=== PATIENT | female | born 1990 | race Caucasian/White ===

== ENCOUNTER 2016-11-17 16:45 | Emergency (ER) | payer MEDICAID ==
[~2016-11-17 16:45] MED LIST: FLUT50SP EACH NARE; PRIL20CA9 PO
--- NOTE | 2016-11-17 17:29 | PD ---
HPI Travel History International Travel<30 Days: No Contact w/Intl Traveler<30Days: No Known Affected Area: No History of Present Illness HPI This patient is a 26-year-old 2 para 1001 EDC is March 15, 2017 presently at 23 weeks, she presents with the chief complaint of having bleeding last night she spotted when she went to the restroom and wiped and saw that on the tissue having mild lower abdominal cramping states that the bleeding was bright red no fever no chills no nausea no vomiting no diarrhea or constipation she has increased frequency of her urine but no dysuria no discharge odors or itching care with Dr. Murray course as been unremarkable her blood type is A+ History Past Medical History Narrative Medical No known drug allergies history of acid reflux Obstetric History Obstetric History First baby born December 10, 2013 male weight 7 lbs. 1 oz. vaginal delivery uncomplicated Past Surgical History Surgical History: No Previous Surgery Family History Family History: Negative Social History Alcohol Use: No Tobacco Use: No Substance Abuse: No Allergies-Medications (Allergen,Severity, Reaction): Coded Allergies: No Known Allergies (Verified , 08/13/16) Home Meds Reported Medications Omeprazole (Prilosec)20 Mg Cap20 Mg PO DAILY #31 CAP Ref 6 08/31/16 Fluticasone Nasal [place] 50 Mcg/Act Naspr50 Mcg EACH NARE BID #1 BOTTLE Ref 3 50 mcg/spray 08/31/16 Review of Systems Gastrointestinal: Abdominal Pain (crampy lower abdominal pain) Genitourinary: Frequency, Vaginal Bleeding Physical Exam Narrative GENERAL: Well-nourished, well-developed patient. Alert oriented 3 and cooperative in no acute distress CARDIOVASCULAR: Regular rate and rhythm without murmurs, gallops, or rubs. RESPIRATORY: Breath sounds equal bilaterally. No accessory muscle use. ABDOMEN/GI: Abdomen is obese soft nontender uterus consistent with about 23 weeks Gravid to [-] weeks size 23 Fundal Height: [-] GENITOURINARY: Speculum exam no red no brown no pink thin whitish discharge cervix is grossly closed External Genitalia: intact and normal in appearance BUS glands: [-] Cervix: [-] Thick closed posterior Dilatation: [-] 0 Effacement: [-] 0 Station: [-] Presentation: [-] Membranes: [intact Uterine Contractions: [-]0 FHT's: Category: [-] Baseline: [-] 150 Reactive: [-] Variability: [-] Decels: [-] EXTREMITIES: No cyanosis or edema. 2+ reflexes NEUROLOGICAL: Awake and alert. Motor and sensory grossly within normal limits. Five out of 5 muscle strength in all muscle groups. Normal speech. Data Data Vital Signs Reviewed: Yes (temperatures 99.1 blood pressure 133/77 pulse is 100 heart rate 150) Orders Vital Signs (Adult) .ON ADMISSION (11/17/16 17:18) ^ Labor Status (11/17/16 17:18) Urinalysis - C+S If Indicated (11/17/16 17:18) ^ Hydration (11/17/16 17:18) Labs Bedside ultrasound is done baby is active heart rate is 152 placenta is anterior and grade 1 no funneling at the internal os no abruption no previa cervical length is 4.04 MDM Medical Record Reviewed: No Interpretation(s) 26-year-old at 23 weeks Not in labor Vaginal spotting with no clinical evidence of spotting or bleeding Rule out hematuria Rule out UTI Narrative Course / MDM Urinalysis culture is not indicated We'll discharge patient home by mouth fluid hydration Pelvic rest and limited physical activity kick count Follow-up with Dr. Murray in 24-48 hours Plan Bedside ultrasound By mouth fluid hydration Urinalysis Reevaluation Will discharge the patient home Rest pelvic rest by mouth fluid hydration kick Follow-up with Dr. Son in 24-48 hours Diagnosis Diagnosis: Primary Impression: Vaginal spotting Additional Impression: 23 weeks gestation of Disposition: DISCHARGE HOME Condition: Stable Veronika Roach MD Nov 17, 2016 17:29
[2016-11-17 18:23] LABS: BACTERIA, URINE RARE /hpf; BLOOD, URINE NEG (NEG); COMMENT (UR) CULT NOT INDICATED; CULTURE IF INDICATED CULT NOT INDICATED; GLUCOSE,URINE NEG (NEG); KETONE, URINE NEG (NEG); MUCUS URINE FEW /lpf (OCC); NITRITE,URINE NEG (NEG); PH, URINE 6.5 (5.0-8.5); SQUAMOUS EPITHELIAL CELL URINE 26 /hpf (0-5); URINE COLOR YELLOW (YELLW/STRAW)
== END 2016-11-17 18:00 | disposition home or self-care (01) ==
LOC: HOBED 16:45
DX: O26.852 Spotting complicating pregnancy, second trimester (principal); Z3A.23 23 weeks gestation of pregnancy
CPT/HCPCS: 81001; 99284

== ENCOUNTER 2016-12-06 19:48 | Emergency (ER) | payer MEDICAID ==
--- NOTE | 2016-12-06 20:21 | PD ---
HPI Chief Complaint right leg pain Date Seen: Dec 06, 2016 Time Seen: 20:00 Travel History International Travel<30 Days: No Contact w/Intl Traveler<30Days: No Known Affected Area: No History of Present Illness HPI 26yo at 24 weeks gestation here for simpson pain. Pt was shopping at [employer] last Tuesday and fell onto her side. Hit right anterior simpson on shelf and has small bruise. Good movement, no vaginal bleeding. No abdominal trauma. Para: 1 : 2 History Past Medical History Medical History: Denies Significant Hx Past Surgical History Surgical History: No Previous Surgery Family History Family History: Negative Social History Alcohol Use: No Tobacco Use: No Substance Abuse: No Allergies-Medications (Allergen,Severity, Reaction): Coded Allergies: No Known Allergies (Verified , 08/13/16) Home Meds Reported Medications Omeprazole (Prilosec)20 Mg Cap20 Mg PO DAILY #31 CAP Ref 6 08/31/16 Fluticasone Nasal [place] 50 Mcg/Act Naspr50 Mcg EACH NARE BID #1 BOTTLE Ref 3 50 mcg/spray 08/31/16 Review of Systems Except as stated in HPI: all other systems reviewed are Neg Physical Exam Narrative GENERAL: Well-nourished, well-developed patient. SKIN: Warm and dry. HEAD: Normocephalic and atraumatic. EYES: No scleral icterus. No injection or drainage. ENT: No nasal drainage noted. Mucous membranes pink. Airway patent. NECK: Supple, trachea midline. No JVD. CARDIOVASCULAR: Regular rate and rhythm without murmurs, gallops, or rubs. RESPIRATORY: Breath sounds equal bilaterally. No accessory muscle use. BREASTS: Bilateral exam showed no masses , no retractions, no nipple discharge. ABDOMEN/GI: Abdomen soft, non-tender, bowel sounds present, no rebound, no guarding Gravid to [-] weeks size Fundal Height: [-] 24cm GENITOURINARY: deferred External Genitalia: intact and normal in appearance BUS glands: [-] Cervix: [-] Dilatation: [-] Effacement: [-] Station: [-] Presentation: [-] Membranes: [intact or ruptured] Uterine Contractions: [-] FHT's: Category: [-] 1 Baseline: [-] 145 Reactive: [-] reactive Variability: [-] moderate Decels: [-] absent EXTREMITIES: No cyanosis or edema. right simpson with barely apparent slight discoloration 2cm on anterior simpson BACK: Nontender without obvious deformity. No CVA tenderness. NEUROLOGICAL: Awake and alert. Motor and sensory grossly within normal limits. Five out of 5 muscle strength in all muscle groups. Normal speech. Data Data Vital Signs Reviewed: Yes [facility] Medical Record Reviewed: Yes Plan Follow up with ob provider as scheduled Diagnosis Diagnosis: Primary Impression: 24 weeks gestation of Additional Impression: Superficial bruising of lower leg Disposition: 01 DISCHARGE HOME Shanna Young MD Dec 06, 2016 20:21
== END 2016-12-06 20:31 | disposition home or self-care (01) ==
LOC: HOBED 19:48
DX: O26.892 Other specified pregnancy related conditions, second trimester (principal); M79.661 Pain in right lower leg; S80.11XA Contusion of right lower leg, initial encounter; W01.198A Fall on same level from slipping, tripping and stumbling with subsequent striking against other object, initial encounter; Y92.512 Supermarket, store or market as the place of occurrence of the external cause; Z3A.24 24 weeks gestation of pregnancy
CPT/HCPCS: 99283

== ENCOUNTER 2017-02-04 17:15 | Emergency (ER) | payer MEDICAID ==
--- NOTE | 2017-02-04 18:15 | PD ---
HPI Chief Complaint Leakage of fluid Date Seen: Feb 04, 2017 Travel History International Travel<30 Days: No Contact w/Intl Traveler<30Days: No Known Affected Area: No History of Present Illness HPI Patient is a 26-year-old white female at 34 weeks who presents complaining of some leakage of fluid per vagina. She is unsure if it was urine or fluid from baby. She denies bleeding. Baby is active. heart rate tracing is reactive and she is not rosita. Patient sees Dr. Murray of [facility] for care. Para: 1 : 2 History Obstetric History Obstetric History One vaginal delivery Social History Alcohol Use: No Tobacco Use: No Substance Abuse: No Allergies-Medications (Allergen,Severity, Reaction): Coded Allergies: No Known Allergies (Verified , 08/13/16) Home Meds Reported Medications Omeprazole (Prilosec)20 Mg Cap20 Mg PO DAILY #31 CAP Ref 6 08/31/16 Fluticasone Nasal [place] 50 Mcg/Act Naspr50 Mcg EACH NARE BID #1 BOTTLE Ref 3 50 mcg/spray 08/31/16 Review of Systems General / Constitutional: No: Fever, Weight Gain, Chills, Other Eyes: No: Diploplia, Blurred Vision, Visual changes, Pain, Photophobia HENT: No: Headaches, Vertigo, Lightheadedness Cardiovascular: No: Irregular Rhythm, Chest Pain or Discomfort, Palpitations, Tachycardia, Syncope, Varicosities, Edema, Cyanosis Respiratory: No: Cough, Short of Breath, Other Gastrointestinal: No: Nausea, Vomiting, Diarrhea Genitourinary: Dysuria, No: Decreased Urinary Output, Oliguria Musculoskeletal: No: Limited ROM, Weakness, Cramping, Edema, Pain Skin: No Rash, No Itching, No Dryness, No Lumps, No Change in Pigmentation, No Change in Nails, No Alopecia, No Lesions Neurologic: No: Weakness, Dizziness, Syncope, Focal Abnormalities, Coordination Problem, Headache, Slurred Speech, Seizures Psychiatric: No: Depression, Suicidal Ideations, Homicidal Ideation Endocrine: No: Heat Intolerance, Cold Intolerance, Polydipsia, Polyuria, Other Physical Exam Narrative GENERAL: Well-nourished, well-developed patient. SKIN: Warm and dry. HEAD: Normocephalic and atraumatic. EYES: No scleral icterus. No injection or drainage. ENT: No nasal drainage noted. Mucous membranes pink. Airway patent. NECK: Supple, trachea midline. No JVD. CARDIOVASCULAR: Regular rate and rhythm without murmurs, gallops, or rubs. RESPIRATORY: Breath sounds equal bilaterally. No accessory muscle use. BREASTS: Bilateral exam showed no masses , no retractions, no nipple discharge. ABDOMEN/GI: Abdomen soft, non-tender, bowel sounds present, no rebound, no guarding Gravid to [-34] weeks size Fundal Height: [34-] GENITOURINARY: External Genitalia: intact and normal in appearance BUS glands: [-] Cervix: [-] Closed Membranes: [intact ] amnio sure negative Uterine Contractions: [-none] FHT's: Category: [1-] Baseline: [133-] Reactive: [-yes] Variability: [mod-] Decels: [none-] EXTREMITIES: No cyanosis or edema. BACK: Nontender without obvious deformity. No CVA tenderness. NEUROLOGICAL: Awake and alert. Motor and sensory grossly within normal limits. Five out of 5 muscle strength in all muscle groups. Normal speech. Data Data Labs Amnio sure is negative Urinalysis pending at this point we will check the results of that and if positive for UTI will treat with Macrobid 100 twice a day for a week if negative and patient hydrated at home MDM Interpretation(s) This patient is a 26-year-old white female at 34 weeks presents planning of leakage of fluid. Amnio sure is negative. There's been no further leakage. Denies bleeding or contractions. heart rate tracing is reactive. The patient's urinalysis is pending at this time but if positive for UTI will treat accordingly Plan Plan to patient to take antibiotics if UTI noted otherwise she is to use Tylenol home at home for discomforts hydrated appropriately and the use bedrest as needed. Diagnosis Diagnosis: Primary Impression: No leakage of amniotic fluid into vagina Disposition: DISCHARGE HOME Condition: Stable Dennys Johnson II, MD Feb 04, 2017 18:15
[2017-02-04 18:55] LABS: BACTERIA, URINE RARE /hpf; BLOOD, URINE NEG (NEG); COMMENT (UR) CULT NOT INDICATED; CULTURE IF INDICATED CULT NOT INDICATED; GLUCOSE,URINE NEG (NEG); KETONE, URINE NEG (NEG); MUCUS URINE FEW /lpf (OCC); NITRITE,URINE NEG (NEG); PH, URINE 6.5 (5.0-8.5); SQUAMOUS EPITHELIAL CELL URINE 9 /hpf (0-5); URINE COLOR LIGHT-YELLOW (YELLW/STRAW)
== END 2017-02-04 19:30 | disposition home or self-care (01) ==
LOC: HOBED 17:15
DX: Z03.71 Encounter for suspected problem with amniotic cavity and membrane ruled out (principal); Z3A.34 34 weeks gestation of pregnancy
CPT/HCPCS: 81001; 84112; 99284

== ENCOUNTER 2017-02-17 17:15 | Emergency (ER) | payer MEDICAID ==
--- NOTE | 2017-02-17 17:57 | PD ---
HPI Chief Complaint fell down stairs, abdominal pain Date Seen: Feb 17, 2017 (Tayo Brooks MD R2) Travel History International Travel<30 Days: No Contact w/Intl Traveler<30Days: No (Tayo Brooks MD R2) History of Present Illness HPI Ms. Verduzco is a 26 yo at 36 1/7weeks (TAI 03/16/2017) patient of Dr. Murray who presents after fall down stairs and subsequent abdominal pain. Patient states that she fell down 3 stairs and landed on her right side/back approximately <30 minutes ago. Patient states that she does not think she fell on her abdomen since she was carrying her child. Patient reports lower abdominal pain which is cramping and constant in nature following this; pain has not subsided since injury. Patient reports normal movement. Patient denies vaginal bleeding. Patient does not report other symptoms such as headache, vision changes, chest pain, shortness of breath, nausea/vomiting, dysuria, or leg swelling. Patient reports unremarkable history with normal ultrasounds and normal labs. Patient states that she has GERD for which she takes Prilosec prescribed by Dr. Murray. A+ blood. Para: 1 : 2 (Tayo Brooks MD R2) HPI Patient reports slip on stairs while holding her son. She slide down 3 stairs and hit her right elbow, knee, and fell onto her right hip. She reports discomfort with walking in her lower abdomen. She denies hitting her abdomen. She denies UC, LOF, VB. +FM. She also fell 2 months ago. She reports being on "bedrest" the past month for musculoskeletal discomfort. (Princess Palomares MD) History Past Medical History Narrative Medical GERD Childhood asthma (Tayo Brooks MD R2) Obstetric History Obstetric History Prior full term vaginal 14 mo ago (Tayo Brooks MD R2) Past Surgical History Surgical History: No Previous Surgery (Tayo Brooks MD R2) Family History Family History: Negative (Tayo Brooks MD R2) Social History Alcohol Use: No Tobacco Use: No Substance Abuse: No (Tayo Brooks MD R2) Allergies-Medications (Allergen,Severity, Reaction): Coded Allergies: No Known Allergies (Verified , 08/13/16) Home Meds Reported Medications Omeprazole (Prilosec)20 Mg Cap20 Mg PO DAILY #31 CAP Ref 6 08/31/16 Fluticasone Nasal [place] 50 Mcg/Act Naspr50 Mcg EACH NARE BID #1 BOTTLE Ref 3 50 mcg/spray 08/31/16 Review of Systems General / Constitutional: No: Fever Eyes: No: Blurred Vision HENT: No: Headaches Cardiovascular: No: Chest Pain or Discomfort Respiratory: No: Short of Breath Gastrointestinal: Abdominal Pain (lower, bilateral, worst in LLQ), No: Nausea , Vomiting Genitourinary: No: Urgency, Dysuria (Tayo Brooks MD R2) Physical Exam BP 140/87 HR 112 RR 18 T 98.3 Narrative GENERAL: Well-nourished, well-developed patient. SKIN: Warm and dry. HEAD: Normocephalic and atraumatic. EYES: No scleral icterus. No injection or drainage. ENT: No nasal drainage noted. Mucous membranes pink. Airway patent. NECK: Supple, trachea midline. No JVD. CARDIOVASCULAR: Regular rate and rhythm without murmurs. Normal perfusion RESPIRATORY: CTAB, normal rate ABDOMEN/GI: Abdomen soft, mild tenderness to palpation in LLQ, bowel sounds present, no rebound, no guarding Gravid GENITOURINARY: Uterine Contractions: None EXTREMITIES: No cyanosis or edema. BACK: No obvious deformity. NEUROLOGICAL: Awake and alert. Motor and sensory function grossly within normal limits. FHT's: Category: 1 Baseline: 150 Reactive: Y Variability: Mod Decels: None (Tayo Brooks MD R2) Vital Signs Date Time Temp Pulse Resp B/P Pulse Ox O2 Delivery O2 Flow Rate FiO2 02/17/17 19:07 18 02/17/17 19:03 91 135/78 Narrative NAD ABD soft NT, gravid. No abdominal injuries noted. Points to suprapubic area where discomfort (this is not new pain) RT elbow, normal ROM, scratch noted RT knee with normal ROM, NT RT toe NT, small amount of blood under toe nail CAT I FHT No UC noted (Princess Palomares MD) Data Data Vital Signs Reviewed: Yes (Tayo Brooks MD R2) Vital Signs Reviewed: Yes (Princess Palomares MD) MDM Medical Record Reviewed: Yes Narrative Course / MDM 26 yo at 36 1/7weeks (TAI 03/16/2017) -Fall injury, 3 steps, no reported injury to abdomen. Subsequent lower abdominal pain -A+ blood -Category 1 rhythm -No contractions on CTG -SBP 140 Assessment/Plan: -We'll plan to monitor EFM 4 hours to assure well-being -We'll continue to trend blood pressure -We'll give Tylenol for abdominal pain (Tayo Brooks MD R2) Interpretation(s) US: preliminary report WNL OLIVA 12.6cm Normal anterior placenta, no previa, Grade 2 Cephalic 6lb 9oz Normal anatomy Narrative Course / MDM 36 weeks Fall on stairs Prolonged monitoring FHT CAT I, reassuring No UC, s/s labor Chronic musculoskeletal pain s/p 2 falls this (wearing same shoes). Normal US tonight Has f/u in AM with [facility] in clinic. (Princess Palomares MD) Diagnosis Diagnosis: Primary Impression: Traumatic injury during in third trimester Additional Impression: 36 weeks gestation of Disposition: 01 DISCHARGE HOME Condition: Good Tayo Brooks MD R2 Feb 17, 2017 17:57 Princess Palomares MD Feb 17, 2017 19:06
[2017-02-17] MEDS ORDERED: ACETAMINOPHEN 325 MG TAB PO ONE (18:00)
[2017-02-17 19:03] VITALS: BP 135/78; PULSE 91
[2017-02-17 19:07] VITALS: RESP 18
== END 2017-02-17 22:00 | disposition home or self-care (01) ==
LOC: HOBED 17:15
DX: O26.893 Other specified pregnancy related conditions, third trimester (principal); T14.90 Injury, unspecified; R10.30 Lower abdominal pain, unspecified; W10.9XXA Fall (on) (from) unspecified stairs and steps, initial encounter; Y92.009 Unspecified place in unspecified non-institutional (private) residence as the place of occurrence of the external cause; Z3A.36 36 weeks gestation of pregnancy
CPT/HCPCS: 59025; 76816

== ENCOUNTER 2017-03-09 18:13 | Inpatient (IN) | payer MEDICAID ==
[~2017-03-09] VITALS: Ht 167.6 cm; Wt 113.0 kg
[2017-03-09] MEDS ORDERED: PREN29TA PO (18:56)
[2017-03-09] MEDS ORDERED: AMMONIA AROMATIC INHALANT 0.33 ML ONE (19:25)
[2017-03-09] MEDS ORDERED: LIDOCAINE HCL 1% 50 ML VIAL ONE (20:02)
[2017-03-09] MEDS ORDERED: SODIUM CHLORIDE 0.9% FLUSH 10 ML FLUSH IV FLUSH PRN (21:00)
[2017-03-09] MEDS ORDERED: DINOPROSTONE 10 MG VAG INSERT VAGINAL ONE (21:00)
[2017-03-09] MEDS ORDERED: SODIUM CHLORIDE 0.9% FLUSH 10 ML FLUSH IV FLUSH SCH (21:00)
[2017-03-09 22:22] LABS: AUTOMATED NEUTROPHIL # 9.6 TH/MM3 (1.8-7.7); BASOPHIL # 0.1 TH/MM3 (0-0.2); BASOPHIL % 0.5 % (0.0-2.0); EOSINOPHIL % 0.2 % (0.0-4.0); HEMATOCRIT 27.2 % (35.0-46.0); HEMO FLAGS DIFF FINAL; LYMPH % 13.7 % (9.0-44.0); LYMPHOCYTE # 1.7 TH/MM3 (1.0-4.8); MEAN CORPUSCULAR HGB CONC 31.6 % (32.0-36.0); MONO % 8.6 % (0.0-8.0); PLATELET COUNT 287 TH/MM3 (150-450); RED BLOOD COUNT 3.44 MIL/MM3 (4.00-5.30); RED CELL DISTRIBUTION WIDTH 16.7 % (11.6-17.2); WHITE BLOOD COUNT 12.5 TH/MM3 (4.0-11.0)
[2017-03-09 22:30] LABS: BACTERIA, URINE MOD /hpf; BLOOD, URINE NEG (NEG); COMMENT (UR) CULTURE INDICATED; CULTURE IF INDICATED CULTURE INDICATED; GLUCOSE,URINE NEG (NEG); HYALINE CAST, URINE 1 /lpf (RARE); KETONE, URINE NEG (NEG); MUCUS URINE FEW /lpf (OCC); NITRITE,URINE NEG (NEG); SQUAMOUS EPITHELIAL CELL URINE 25 /hpf (0-5); URINE COLOR YELLOW (YELLW/STRAW)
[2017-03-09] MEDS ORDERED: ZOLPIDEM TARTRATE 10 MG TAB PO PRN (22:45)
[2017-03-09] MEDS ORDERED: LIDOCAINE HCL 1% 50 ML VIAL I-DERMAL PRN (22:45)
[2017-03-09] MEDS ORDERED: NS 1000 ML IV PRN (22:45)
[2017-03-09] MEDS ORDERED: MINERAL OIL 10 ML VIAL TOPICAL PRN (22:45)
[2017-03-09] MEDS ORDERED: CITRIC ACID-SODIUM CITRATE LIQ 30 ML UDC PO SCH (22:45)
[2017-03-09] MEDS ORDERED: NS 500 ML BOLUS IV PRN (22:45)
[2017-03-09] MEDS ORDERED: LIDOCAINE HCL 1% 50 ML VIAL INFIL PRN (22:45)
[2017-03-09] MEDS ORDERED: ONDANSETRON HCL 4 MG/2 ML VIAL IV PRN (22:45)
[2017-03-09] MEDS ORDERED: LACTATED RINGER'S 1000 ML BOLUS IV PRN (22:45)
[2017-03-09] MEDS: LACTATED RINGER'S 1000 ML IV SCH (22:46)
[2017-03-09] MEDS ORDERED: OXYTOCIN 30 UNITS 500ML PREMIX IV ONE (23:00)
[2017-03-09] MEDS ORDERED: PENICILLIN G POT 5,000,000 UNITS/NS 100 ML (Mini-Bag Plus) IV ONE ×2 (23:00)
[2017-03-09 23:46] VITALS: BP 117/65; PULSE 99; RESP 18; TEMP 97.9
[2017-03-10] VITALS (33 sets, daily range): BP systolic 102–142; BP diastolic 45–82; PULSE 83–105; RESP 18; TEMP 98–98.4; O2SAT 99
[2017-03-10] MEDS ORDERED: PENICILLIN G POT 2,500,000 UNITS/NS 100 ML IV SCH ×4 (03:00→11:00)
[2017-03-10] MEDS: LACTATED RINGER'S 1000 ML IV SCH ×2 (06:10→12:12)
[2017-03-10] MEDS ORDERED: PENICILLIN G POT 5,000,000 UNITS/NS 100 ML (Mini-Bag Plus) IV ONE ×2 (07:00)
--- NOTE | 2017-03-10 09:03 | PD.LABORPN ---
Subjective Subjective IUP at term for induction, unstable lie, obesity, suspect LGA. s/p cervidil last night Objective Vital Signs Vital Signs Date Time Temp Pulse Resp B/P Pulse Ox O2 Delivery O2 Flow Rate FiO2 03/10/17 05:48 104 140/78 03/10/17 05:47 98.2 18 03/10/17 03:00 101 111/56 03/10/17 03:00 98.0 18 03/10/17 02:00 98 133/58 03/10/17 02:00 98.1 18 Objective Pelvic Exam: Cervix: [-] Dilatation: [-] 2-3 Effacement: [-] 50 Station: [-] -2 Presentation: [-] Membranes: [intact or ruptured] arom clear Uterine Contractions: [-] irreg FHT's: Category: [-] 1 Baseline: [-] Reactive: [-] Variability: [-] Decels: [-] Assessment/Plan Problem List: (1) state, incidental (2) Obesity (3) GERD (gastroesophageal reflux disease) Assessment and Plan IUP at 39 wks, arom start pitocin aug, analgesia prn, pcn prophylaxis for GBBS anticipate Usha Murray MD March 10, 2017 09:03
[2017-03-10] MEDS ORDERED: OXYTOCIN 30 UNITS-500ML PREMIX 500 ML IV SCH (09:15)
[2017-03-10] MEDS ORDERED: LOPERAMIDE HCL 2 MG CAP PO ONE (09:15)
--- NOTE | 2017-03-10 09:18 | MH ---
cc: CARMENCITA CERVANTES DATE OF ADMISSION: 03/09/2017 ADMITTING DIAGNOSIS: She is being admitted on 03/09/2017. She is 26-year-old 2, para 1-0-0-1 intrauterine at 39 weeks with a history of gallbladder problems, peptic ulcer, morbid obesity and unstable lie. care has been with [facility], group B strep is positive. GCT was normal. PAST OBSTETRICS HISTORY: Significant for one vaginal delivery in December 2015, 7 pounds 1 ounce. PAST GYNECOLOGY HISTORY: Unremarkable. PAST MEDICAL HISTORY She has a history of a gallstone. Stomach ulcer. PAST SURGICAL HISTORY She denies. SOCIAL HISTORY She denies toxic habits. MEDICATIONS She takes Vitamins. Prilosec ALLERGIES NO KNOWN DRUG ALLERGIES PHYSICAL EXAMINATION: VITAL SIGNS: On physical exam blood pressure is 120/80. She is 287 pounds. HEAD/HEART/CHEST/LUNG: Examinations within normal limits. ABDOMEN: The abdomen is soft, nontender, gravid. PELVIC: Pelvic exam cervix is fingertip, 50% effaced. Baby is vertex on ultrasound today 03/04/2017. ASSESSMENT/PLAN She is 26-year-old 2, para 1 intrauterine at 39 weeks with history of gallbladder disease, obesity and unstable lie. The baby was breech on 02/25/2017, vertex of 03/04/2017. Group B strep positive. She will be admitted for Cervidil cervical ripening followed by Pitocin augmentation and penicillin prophylaxis. Thank you. MD MARVA Shelby/jaime /10:20 AM /9:17 AM
[2017-03-10] MEDS ORDERED: fentaNYL 2MCG-BUPIV 0.125% INJ 100 ML ONE (11:27)
--- NOTE | 2017-03-10 15:14 | PD.OB.DELI ---
Anesthesia: Epidural Episiotomy: None Vaginal Delivery: Normal Presentation: Occiput anterior Nuchal Cord: x2 : Male One Minute : 8 Five Minute : 9 Placenta: Spontaneous delivery Laceration: 2 deg Repair: Usha Landis MD March 10, 2017 15:14
[2017-03-10] MEDS ORDERED: ALUMINUM/MAGNESIUM/SIMETH 30 ML CUP PO PRN (15:15)
[2017-03-10] MEDS ORDERED: ZOLPIDEM TARTRATE 5 MG TAB PO PRN (15:15)
[2017-03-10] MEDS ORDERED: WITCH HAZEL 50%/GLYCERIN 12.5% 40 PAD JAR TOPICAL PRN (15:15)
[2017-03-10] MEDS ORDERED: OXYTOCIN 30 UNITS-500ML PREMIX 500 ML IV ONE (15:15)
[2017-03-10] MEDS ORDERED: ONDANSETRON ODT 4 MG TAB PO PRN (15:15)
[2017-03-10] MEDS ORDERED: DOCUSATE SODIUM 50 MG/SENNA 8.6 MG TAB PO PRN (15:15)
[2017-03-10] MEDS ORDERED: BENZOCAINE 20% TOPICAL SPRAY 60 ML CAN TOPICAL PRN (15:15)
[2017-03-10] MEDS ORDERED: SODIUM CHLORIDE 0.9% FLUSH 10 ML FLUSH IV FLUSH PRN (15:15)
[2017-03-10] MEDS ORDERED: DIPHTH/TETANUS/ACEL PERTUSSIS (BOOSTER) 0.5 ML VIAL/PFS IM ONE (16:00)
[2017-03-10] MEDS ORDERED: MEASLES, MUMPS, RUBELLA VACCINE 0.5 ML VIAL SQ ONE (16:00)
[2017-03-10] MEDS ORDERED: diphenhydrAMINE HCL 50 MG CAP PO PRN (19:45)
[2017-03-10] MEDS: PANTOPRAZOLE SOD 20 MG DELAYED RELEASE TAB PO SCH (21:00)
[2017-03-10] MEDS ORDERED: SODIUM CHLORIDE 0.9% FLUSH 10 ML FLUSH IV FLUSH SCH (21:00)
[2017-03-10] MEDS: IBUPROFEN 600 MG TAB PO PRN (21:08)
[2017-03-11] MEDS: IBUPROFEN 600 MG TAB PO PRN ×4 (03:27→21:07)
--- NOTE | 2017-03-11 07:52 | HHI.OB ---
Subjective Post Day: 1 Remarks Doing well Pain is well controlled Having some right breast pain Objective Vitals/I&O Vital Signs Date Time Temp Pulse Resp B/P Pulse Ox O2 Delivery O2 Flow Rate FiO2 03/10/17 19:31 105 123/71 03/10/17 19:31 98.3 18 99 03/10/17 17:50 98.4 96 18 142/82 03/10/17 17:05 18 03/10/17 16:50 18 03/10/17 16:46 87 121/66 03/10/17 16:35 18 03/10/17 16:31 100 112/69 03/10/17 16:20 18 03/10/17 16:16 94 112/56 03/10/17 16:05 18 03/10/17 16:01 100 120/82 03/10/17 15:50 18 03/10/17 15:46 98 117/60 03/10/17 15:31 103 102/82 03/10/17 15:23 18 03/10/17 15:20 98.0 03/10/17 15:20 18 03/10/17 15:17 95 127/45 03/10/17 14:31 87 117/62 03/10/17 14:30 18 03/10/17 14:16 97 120/69 03/10/17 14:01 87 129/76 03/10/17 14:00 18 03/10/17 13:45 18 03/10/17 13:44 83 125/70 03/10/17 13:31 87 120/60 03/10/17 13:30 18 03/10/17 13:16 89 121/80 03/10/17 13:15 18 03/10/17 13:00 98.0 18 03/10/17 12:12 18 Objective Remarks GENERAL: Well-nourished, well-developed patient. CARDIOVASCULAR: Regular rate and rhythm without murmurs, gallops, or rubs. Breast tender red area under right breast. RESPIRATORY: Breath sounds equal bilaterally. No accessory muscle use. ABDOMEN/GI: Abdomen soft, non-tender. Fundus: Firm, non-tender at umbilicus. GENITOURINARY: Light to moderate bleeding. EXTREMITIES: No cyanosis or edema, non-tender, without signs of DVT. Medications and IVs Current Medications Medications (Trade) Dose Ordered Sig/Severino Route Start Time Stop Time Status Last Admin (NS Flush) 2 ml BID IV FLUSH 03/10/17 21:00 (NS Flush) 2 ml UNSCH PRN IV FLUSH 03/10/17 15:15 (Tylenol) 650 mg Q4H PRN PO 03/10/17 15:15 (Motrin) 600 mg Q6H PRN PO 03/10/17 15:15 03/11/17 03:27 ([place] 20% Top Spr) 1 spray Q4H PRN TOPICAL 03/10/17 15:15 03/10/17 17:51 (Tucks Pads) 1 applic QID PRN TOPICAL 03/10/17 15:15 03/10/17 17:51 (Monica-Colace) 2 tab Q12H PRN PO 03/10/17 15:15 (Ambien) 5 mg HS PRN PO 03/10/17 15:15 (Mag-Al Plus Susp Liq) 15 ml Q8H PRN PO 03/10/17 15:15 (Zofran Odt) 4 mg Q6H PRN PO 03/10/17 15:15 (Protonix) 20 mg HS PO 03/10/17 21:00 (Benadryl) 50 mg Q6H PRN PO 03/10/17 19:45 03/10/17 21:08 Assessment/Plan Problem List: (1) state, incidental (2) Obesity (3) GERD (gastroesophageal reflux disease) Assessment and Plan PPD #1 Doing well Keep an eye on the breast may need antibiotics. Cristal De La Vega MD March 11, 2017 07:52
[2017-03-11 08:00] VITALS: BP 127/73; PULSE 98; RESP 18; TEMP 98.2; O2SAT 99
--- NOTE | 2017-03-11 10:07 | HHI.DCPOC ---
Discharge Care Plan Diagnosis: (1) Normal vaginal delivery Report Symptoms to Your Doctor -Temperate above 100.5 degrees -Redness, of incision or excessive or foul smelling drainage -Unusual pain or calf pain -Increased vaginal bleeding -Painful or difficulty urinating -Feelings of extreme sadness or anxiety after 2 weeks Goals to Promote Your Health * To prevent worsening of your condition and complications * To maintain your health at the optimal level Directions to Meet Your Goals Take your medications as prescribed Follow your dietary instruction Follow activity as directed Ensure plenty of rest for recovery Drink fluids for hydration Keep your appointments as scheduled Take your immunizations and boosters as scheduled If your symptoms worsen call your PCP, if no PCP go to Urgent Care Center or Emergency Room Smoking is Dangerous to Your Health. Avoid second hand smoke Call the 24-hour crisis hotline for domestic abuse at Josefina Estrella March 11, 2017 10:07
[2017-03-11] MEDS: ACETAMINOPHEN 325 MG TAB PO PRN ×2 (11:12→14:45)
--- NOTE | 2017-03-11 20:19 | HHI.PR ---
Subjective Remarks My right breast is still cleaner Objective Vital Signs Date Time Temp Pulse Resp B/P Pulse Ox O2 Delivery O2 Flow Rate FiO2 03/11/17 08:00 98.2 98 18 127/73 99 03/11/17 08:00 98 18 127/73 03/11/17 08:00 98.2 Result Diagram: 03/09/172009 Objective Remarks Right breast underside at 7oclock has a 5x4cm fluculent cystic mass that is red and quite tender. Procedure... Under sterile conditions the mass was drained with an 18 gauge needle 10cc of brown, purulent foul smelling fluid was drained Cultures sent.. Will start dicloxacillin Assessment and Plan Assessment and Plan Breast abscess I&D done Start Cristal Harris MD March 11, 2017 20:19
[2017-03-11] MEDS: PANTOPRAZOLE SOD 20 MG DELAYED RELEASE TAB PO SCH (21:00)
[2017-03-11] MEDS: oxyCODONE/ACETAMINOPHEN 5 MG/325 MG TAB PO PRN (21:07)
[2017-03-11 22:25] VITALS: BP 146/87; PULSE 105; RESP 20; TEMP 97.9; O2SAT 99
[2017-03-11] MEDS: DICLOXACILLIN SODIUM 250 MG CAP PO SCH (23:40)
[2017-03-11 23:43] VITALS: BP 119/72; PULSE 108; RESP 20; O2SAT 98
[2017-03-12] MEDS: oxyCODONE/ACETAMINOPHEN 5 MG/325 MG TAB PO PRN ×2 (01:13→09:51)
[2017-03-12] MEDS: IBUPROFEN 600 MG TAB PO PRN ×2 (03:39→09:51)
[2017-03-12] MEDS: DICLOXACILLIN SODIUM 250 MG CAP PO SCH ×2 (06:12→12:34)
[2017-03-12 07:30] VITALS: BP 129/85; PULSE 87; RESP 20; TEMP 98.2
[2017-03-12] MEDS ORDERED: OXYC1TAB63 PO (12:27)
[2017-03-12] MEDS ORDERED: PANT20 PO (12:27)
[2017-03-12] MEDS ORDERED: IBUP-232 PO (12:27)
[2017-03-12] MEDS ORDERED: DICL250 PO (12:27)
--- NOTE | 2017-03-12 12:31 | HHI.OB ---
Subjective Post Day: 2 Remarks Doing well, Baby is good Pain is well controlled but my breast and back are hurting. I need the percocet Objective Vitals/I&O Vital Signs Date Time Temp Pulse Resp B/P Pulse Ox O2 Delivery O2 Flow Rate FiO2 03/12/17 07:30 98.2 87 20 129/85 03/11/17 23:43 108 119/72 03/11/17 23:43 20 98 03/11/17 22:25 97.9 105 20 146/87 99 Objective Remarks GENERAL: Well-nourished, well-developed patient. CARDIOVASCULAR: Regular rate and rhythm without murmurs, gallops, or rubs. Breast tender red area under right breast. Looks better today RESPIRATORY: Breath sounds equal bilaterally. No accessory muscle use. ABDOMEN/GI: Abdomen soft, non-tender. Fundus: Firm, non-tender at umbilicus. GENITOURINARY: Light to moderate bleeding. EXTREMITIES: No cyanosis or edema, non-tender, without signs of DVT. Medications and IVs Current Medications Medications (Trade) Dose Ordered Sig/Severino Route Start Time Stop Time Status Last Admin (NS Flush) 2 ml BID IV FLUSH 03/10/17 21:00 (NS Flush) 2 ml UNSCH PRN IV FLUSH 03/10/17 15:15 (Tylenol) 650 mg Q4H PRN PO 03/10/17 15:15 03/11/17 14:45 (Motrin) 600 mg Q6H PRN PO 03/10/17 15:15 03/12/17 09:51 (Americaine 20% Top Spr) 1 spray Q4H PRN TOPICAL 03/10/17 15:15 03/10/17 17:51 (Tucks Pads) 1 applic QID PRN TOPICAL 03/10/17 15:15 03/10/17 17:51 (Monica-Colace) 2 tab Q12H PRN PO 03/10/17 15:15 (Ambien) 5 mg HS PRN PO 03/10/17 15:15 (Mag-Al Plus Susp Liq) 15 ml Q8H PRN PO 03/10/17 15:15 (Zofran Odt) 4 mg Q6H PRN PO 03/10/17 15:15 (Protonix) 20 mg HS PO 03/10/17 21:00 (Benadryl) 50 mg Q6H PRN PO 03/10/17 19:45 03/10/17 21:08 (Percocet 5-325 Mg) 1 tab Q4H PRN PO 03/11/17 20:30 03/12/17 09:51 (Dynapen) 250 mg Q6HR PO 03/12/17 00:00 03/12/17 06:12 Assessment/Plan Problem List: (1) state, incidental (2) Obesity (3) GERD (gastroesophageal reflux disease) Assessment and Plan PPD#2 Breast abscess,,,Drained last nite but still looks like there may be a small amount of pus in there Will send home on Abs and follow up with Dr. Murray. D/c home today Cristal De La Vega MD March 12, 2017 12:31
[2017-03-12] MEDS ORDERED: HYDROmorphone HCL PF 1 MG/ML VIAL IM ONE (12:45)
== END 2017-03-12 17:48 | disposition home or self-care (01) | DRG 775 ==
LOC: H2EA 18:13 → H1EA 03-10 17:34
PROVIDERS: ADMIT Obstetrics & Gynecology; ATTEND Obstetrics & Gynecology
PROC: 10E0XZZ Delivery of Products of Conception, External Approach (ICD-10-PCS; principal; 2017-03-09)
PROC: 0KQM0ZZ Repair Perineum Muscle, Open Approach (ICD-10-PCS; 2017-03-09)
PROC: 0H9TXZZ (ICD-10-PCS; 2017-03-11)
DX: O32.0XX0 Maternal care for unstable lie, not applicable or unspecified (principal); E66.9 Obesity, unspecified; Z37.0 Single live birth; O99.62 Diseases of the digestive system complicating childbirth; K21.9 Gastro-esophageal reflux disease without esophagitis; N61.1 Abscess of the breast and nipple; N64.4 Mastodynia; O69.81X0 Labor and delivery complicated by cord around neck, without compression, not applicable or unspecified; O99.214 Obesity complicating childbirth; O99.824 Streptococcus B carrier state complicating childbirth; Z3A.39 39 weeks gestation of pregnancy; O70.1 Second degree perineal laceration during delivery
CPT/HCPCS: 59025; 81001; 85025; 87070; 87086; 87205; J1170; J2540; J2590; J3010; J7120; Q0163

== ENCOUNTER 2017-03-14 02:21 | Emergency (ER) | payer MEDICAID ==
[~2017-03-14] VITALS: Ht 167.6 cm; Wt 113.0 kg
[~2017-03-14 02:21] MED LIST changes: +DICL250 PO; -FLUT50SP EACH NARE; +IBUP-232 PO; +OXYC1TAB63 PO; +PANT20 PO; +PREN29TA PO
[2017-03-14 02:26] VITALS: BP 132/83; PULSE 89; RESP 16; TEMP 98.5; O2SAT 99
[2017-03-14] MEDS ORDERED: LIDOCAINE 1%/EPINEPHrine 1:100,000 SOLN 20 ML VIAL INFIL ONE (02:45)
--- NOTE | 2017-03-14 02:47 | PD ---
HPI Chief Complaint: Skin Problem Time Seen by Provider: 02:34 Travel History International Travel<30 days: No Contact w/Intl Traveler<30days: No Traveled to known affect area: No History of Present Illness HPI 26-year-old female here with complaint of breast abscess. Patient delivered by on 03/09. She had a breast abscess that was drained upon her hospital induction admission. She was started on dicloxacillin. She has been taking this now for approximately 48 hours. She states that the abscess area has been increasing in size, but is spontaneously draining. She notes pain in the inferior aspect of the right breast associated with the abscess. No fevers or chills. PFSH Past Medical History Diminished Hearing: No GERD: Yes Immunizations Current: Yes ?: Not : 1 Para: 0 Social History Alcohol Use: No Tobacco Use: No Substance Use: No Allergies-Medications (Allergen,Severity, Reaction): Coded Allergies: No Known Allergies (Verified , 03/14/17) Reported Meds & Prescriptions Reported Meds & Active Scripts Active Oxycodone-Acetaminophen 5-325 mg Tab 1 Tab PO Q4H Protonix (Pantoprazole Sodium) 20 Mg Tab 20 Mg PO HS PRN Ibuprofen 600 Mg Tab 600 Mg PO Q6H Dicloxacillin (Dicloxacillin Sodium) 250 Mg Cap 250 Mg PO Q6HR Reported Plus Iron 29-1 mg ( Vit-Iron Carbonyl) 1 Tab Tab 1 Tab PO DAILY Prilosec (Omeprazole) 20 Mg Cap 20 Mg PO DAILY Review of Systems Except as stated in HPI: all other systems reviewed are Neg Physical Exam Narrative GENERAL: Obese female in no acute distress SKIN: Large pendulous breasts. Along the inferior aspect of the right breast patient has a palpable fluctuance. Really minimal to no induration, erythema. This is spontaneously draining very scant amount of purulence. HEAD: Normocephalic. EYES: No scleral icterus. No injection or drainage. ENT: Mucous membranes pink and moist. CARDIOVASCULAR: Regular rate and rhythm. RESPIRATORY: No accessory muscle use. GASTROINTESTINAL: Obese MUSCULOSKELETAL: Normal gait NEUROLOGICAL: Awake and alert. Normal speech. PSYCHIATRIC: Appropriate mood and affect; insight and judgment normal. Data Data Last Documented VS Vital Signs Date Time Temp Pulse Resp B/P Pulse Ox O2 Delivery O2 Flow Rate FiO2 03/14/17 02:26 98.5 89 16 132/83 99 Room Air Orders Lidocai-Epi 1%-1:100,000 Inj (Xylocaine- (03/14/17 02:45) MDM Medical Decision Making Medical Screen Exam Complete: Yes Emergency Medical Condition: Yes Medical Record Reviewed: Yes Differential Diagnosis 26-year-old female here with complaint of breast abscess. Differential includes breast abscess, cellulitis Narrative Course I&D was performed. She is artery on dicloxacillin. Encouraged to follow-up with [facility] or return to the ER in 48 hours for packing removal Diagnosis Primary Impression: Abscess of right breast Referrals: [facility] 2 days Additional Instructions: Continue antibiotics as prescribed. Follow-up with [facility] and/or return to the emergency department in 48 hours for packing removal and wound check. Med/Other Pt SpecificInfo: No Change to Meds Disposition: 01 DISCHARGE HOME Condition: Stable Marii Viveros MD March 14, 2017 02:47
--- NOTE | 2017-03-14 03:02 | PD ---
Physical Exam Date Seen by Provider: March 14, 2017 Time Seen by Provider: 03:00 Narrative Skin: Patient has a abscess to the right anterior chest wall at the base of the right breast. There is an area of erythema, tenderness and warmth measuring approximately 3 x 5 cm. Data Data Last Documented VS Vital Signs Date Time Temp Pulse Resp B/P Pulse Ox O2 Delivery O2 Flow Rate FiO2 03/14/17 02:26 98.5 89 16 132/83 99 Room Air Orders Lidocai-Epi 1%-1:100,000 Inj (Xylocaine- (03/14/17 02:45) MDM Medical Record Reviewed: Yes Supervised Visit with LOIS: Yes Differential Diagnosis MDM: High Differential diagnoses: Abscess, folliculitis, cellulitis, lymphangitis, abrasion, contact dermatitis Narrative Course An incision and drainage has been performed Procedures Procedure Narrative I&D abscess: In the person of Belle the nurse After the risks and benefits were discussed the following procedure was performed. The skin is prepped and draped in the usual sterile fashion using Betadine. The abscess is anesthetized with 1% lidocaine with epinephrine. After adequate anesthesia, an 11 blade scalpel is used to make a 2 centimeter central incision. Perulant material is expressed. The wound is packed open using iodoform gauze. A clean dressing is applied. The patient tolerated the procedure well. There was no complications. Follow-up instructions were given to the patient. Diagnosis Primary Impression: Abscess of right breast Referrals: [facility] 2 days Patient Instructions: General Instructions Departure Forms: Tests/Procedures Additional Instruction: Continue antibiotics as prescribed. Follow-up with [facility] and/or return to the emergency department in 48 hours for packing removal and wound check. Med/Other Pt SpecificInfo: No Change to Meds Disposition: 01 DISCHARGE HOME Condition: Stable Michael Persaud March 14, 2017 03:02
== END 2017-03-14 03:20 | disposition home or self-care (01) ==
LOC: NEPE 02:21
DX: N61.1 Abscess of the breast and nipple (principal)
CPT/HCPCS: 10061

== ENCOUNTER 2017-03-14 19:22 | Emergency (ER) | payer MEDICAID ==
[~2017-03-14] VITALS: Ht 170.2 cm; Wt 115.0 kg
[2017-03-14 19:24] VITALS: BP 162/100; PULSE 95; RESP 16; TEMP 98.6; O2SAT 96
--- NOTE | 2017-03-14 20:32 | PD ---
HPI Chief Complaint: Lump, Cyst, Hernia Time Seen by Provider: 20:30 Travel History International Travel<30 days: No Contact w/Intl Traveler<30days: No Traveled to known affect area: No History of Present Illness HPI 26-year-old white female presents to emergency department for recheck of an abscess to her right chest. She had an incision and drainage done by myself last evening. She states that she accidentally pulled out the packing prematurely today changing her dressing. She has no change in her symptoms. Positive discharge. Positive pain. PFSH Past Medical History Diminished Hearing: No GERD: Yes Immunizations Current: Yes Tetanus Vaccination: < 5 Years Influenza Vaccination: No ?: Not : 1 Para: 0 Past Surgical History Surgical History: No Previous Surgery Social History Alcohol Use: No Tobacco Use: No Substance Use: No Allergies-Medications (Allergen,Severity, Reaction): Coded Allergies: No Known Allergies (Verified , 03/14/17) Reported Meds & Prescriptions Reported Meds & Active Scripts Active Protonix (Pantoprazole Sodium) 20 Mg Tab 20 Mg PO HS PRN Ibuprofen 600 Mg Tab 600 Mg PO Q6H Dicloxacillin (Dicloxacillin Sodium) 250 Mg Cap 250 Mg PO Q6HR Oxycodone-Acetaminophen 5-325 mg Tab 1 Tab PO Q4H Reported Plus Iron 29-1 mg ( Vit-Iron Carbonyl) 1 Tab Tab 1 Tab PO DAILY Prilosec (Omeprazole) 20 Mg Cap 20 Mg PO DAILY Review of Systems Except as stated in HPI: all other systems reviewed are Neg General / Constitutional: No: Fever, Chills Respiratory: No: Cough, Shortness of Breath Gastrointestinal: No: Nausea, Vomiting (throat) Musculoskeletal: Positive: Pain Skin: Positive Other (drainage) Physical Exam Narrative GENERAL: This is a well-nourished, well-developed patient, in no apparent distress. SKIN: Patient has an open draining abscess to the right chest just under the right breast. There is a 1.5 cm incision. HEAD: Atraumatic. Normocephalic. EYES: PERRL, EOMI, no discharge or injection. No scleral icterus. EARS: Clear NOSE: Nasal turbinates appear normal. THROAT: Mucosa pink and moist. Airway patent. NECK: Trachea midline. supple, moves head freely. LUNGS: Clear to auscultation. CV: Regular in rhythm. ABDOMEN: Soft nontender. EXT: No clubbing cyanosis or edema. Data Data Last Documented VS Vital Signs Date Time Temp Pulse Resp B/P Pulse Ox O2 Delivery O2 Flow Rate FiO2 03/14/17 20:08 16 03/14/17 19:24 98.6 95 162/100 96 [facility] Medical Decision Making Medical Screen Exam Complete: Yes Emergency Medical Condition: Yes Medical Record Reviewed: Yes Differential Diagnosis MDM: High Differential diagnoses: Abscess, folliculitis, cellulitis, lymphangitis, abrasion, contact dermatitis Narrative Course Patient's abscesses recheck and repack. Procedures Procedure Narrative Right chest abscess packing change: The skin is prepped with Betadine. The abscess cavity is packed open with quarter inch iodoform gauze. Patient tolerates procedure well. No complications. Dressing applied. Diagnosis Primary Impression: abscess recheck with packing Patient Instructions: General Instructions Additional Instructions: Rest. Elevation. keep clean and dry. remove the packing in two days. Daily wound care with soap, water and Neosporin. Continue your medications. Follow-up with a primary care doctor in one week. Return to the ER for any problems. Med/Other Pt SpecificInfo: No Change to Meds, Wound Care Disposition: 01 DISCHARGE HOME Condition: Stable Michael Persaud March 14, 2017 20:32
== END 2017-03-14 20:53 | disposition home or self-care (01) ==
LOC: NEPK 19:22
DX: Z48.817 Encounter for surgical aftercare following surgery on the skin and subcutaneous tissue (principal); N61.1 Abscess of the breast and nipple
CPT/HCPCS: 99281

== ENCOUNTER 2017-04-06 21:14 | Emergency (ER) | payer MEDICAID ==
[2017-04-06 21:17] VITALS: BP 166/110; PULSE 97; RESP 16; TEMP 98.5; O2SAT 99
--- NOTE | 2017-04-06 21:27 | PD ---
Physical Exam Time Seen by Provider: 21:24 Narrative 26yo F hit head on glass table 2 days ago and has BEAL since. Saul LOC. +N w/o vomiting. +dizziness and photophobia. Feels tired. BP elevated in ER. Does not take BP medications and denies hx of HTN. Patient seen in triage. VS reviewed. Awaiting bed placement. Data Data Last Documented VS Vital Signs Date Time Temp Pulse Resp B/P Pulse Ox O2 Delivery O2 Flow Rate FiO2 04/06/17 21:17 98.5 97 16 166/110 99 Room Air MDM Supervised Visit with LOIS: Katty Saravia Apr 06, 2017 21:27
[2017-04-06] MEDS ORDERED: PRIL20TA2 PO (22:23)
--- NOTE | 2017-04-06 22:31 | PD ---
HPI Chief Complaint: Head Injury Time Seen by Provider: 22:16 Travel History International Travel<30 days: No Contact w/Intl Traveler<30days: No Traveled to known affect area: No History of Present Illness HPI This is a 26-year-old female who is 3 weeks , presents today with complaints of headache after striking her head 2 days ago on a coffee table. Patient denies any loss of consciousness however reports that she's dizzy and lightheaded. She also has nausea. She reports mild photophobia. Patient states that she still spotting from her . She reports that she is scheduled to see her OB doctor in a few days. There is no shortness of breath. There is no palpitations or chest pain. She does report that she is " stressed out". PFSH Past Medical History Diminished Hearing: No GERD: Yes Immunizations Current: Yes Tetanus Vaccination: < 5 Years Influenza Vaccination: No ?: Not LMP: JUST HAD A BABY 03/09/17 : 1 Para: 0 Past Surgical History Surgical History: No Previous Surgery Social History Alcohol Use: No Tobacco Use: No Substance Use: No Allergies-Medications (Allergen,Severity, Reaction): Coded Allergies: No Known Allergies (Verified , 04/06/17) Reported Meds & Prescriptions Reported Meds & Active Scripts Active Reported Prilosec (Omeprazole Magnesium) 20 Mg Tab 20 Mg PO DAILY Review of Systems Except as stated in HPI: all other systems reviewed are Neg General / Constitutional: No: Fever, Chills Eyes: Positive: Photophobia, No: Blurred Vision HENT: Positive: Headaches, No: Neck Stiffness, Neck Pain Cardiovascular: No: Chest Pain or Discomfort, Palpitations, Irregular Rhythm Respiratory: No: Cough, Shortness of Breath Gastrointestinal: Positive: Nausea, No: Vomiting, Abdominal Pain Genitourinary: Positive: Vaginal Bleeding (spotting) Musculoskeletal: No: Weakness, Pain Neurologic: Positive: Dizziness (mild), Headache (frontal), No: Weakness, Change in Mentation, Sensory Disturbance Physical Exam Narrative GENERAL: Well-nourished, well-developed patient. SKIN: Focused skin assessment warm/dry. HEAD: Normocephalic/atraumatic. I do not appreciate any hematoma or bruising. EYES: No scleral icterus. No injection or drainage. No true photophobia. NECK: Supple, trachea midline. No JVD or lymphadenopathy. CARDIOVASCULAR: Regular rate and rhythm without murmurs, gallops, or rubs. RESPIRATORY: Breath sounds equal bilaterally. No accessory muscle use. GASTROINTESTINAL: Abdomen soft, non-tender, nondistended. MUSCULOSKELETAL: No cyanosis, or edema. No deformities. NEUROLOGICAL: Awake and alert. Cranial nerves II through XII intact. Motor grossly within normal limits. Five out of 5 muscle strength in all muscle groups. Normal speech. Data Data Last Documented VS Vital Signs Date Time Temp Pulse Resp B/P Pulse Ox O2 Delivery O2 Flow Rate FiO2 04/06/17 21:17 98.5 97 16 166/110 99 Room Air Orders Complete Blood Count With Diff (04/06/17 22:23) Comprehensive Metabolic Panel (04/06/17 22:23) Ct Brain W/O Iv Contrast(Rout) (04/06/17 22:23) Labs Laboratory Tests Test 04/06/17 22:30 White Blood Count 9.6 TH/MM3 Red Blood Count 4.17 MIL/MM3 Hemoglobin 10.2 GM/DL Hematocrit 31.9 % Mean Corpuscular Volume 76.6 FL Mean Corpuscular Hemoglobin 24.6 PG Mean Corpuscular Hemoglobin 32.1 % Concent Red Cell Distribution Width 17.1 % Platelet Count 262 TH/MM3 Mean Platelet Volume 9.6 FL Neutrophils (%) (Auto) 61.0 % Lymphocytes (%) (Auto) 29.2 % Monocytes (%) (Auto) 7.8 % Eosinophils (%) (Auto) 1.3 % Basophils (%) (Auto) 0.7 % Neutrophils # (Auto) 5.8 TH/MM3 Lymphocytes # (Auto) 2.8 TH/MM3 Monocytes # (Auto) 0.8 TH/MM3 Eosinophils # (Auto) 0.1 TH/MM3 Basophils # (Auto) 0.1 TH/MM3 CBC Comment DIFF FINAL Differential Comment Sodium Level 143 MEQ/L Potassium Level 3.9 MEQ/L Chloride Level 106 MEQ/L Carbon Dioxide Level 25.7 MEQ/L Anion Gap 11 MEQ/L Blood Urea Nitrogen 15 MG/DL Creatinine 0.82 MG/DL Estimat Glomerular Filtration 86 ML/MIN Rate Random Glucose 86 MG/DL Calcium Level 8.7 MG/DL Total Bilirubin 0.1 MG/DL Aspartate Amino Transf 19 U/L (AST/SGOT) Alanine Aminotransferase 17 U/L (ALT/SGPT) Alkaline Phosphatase 113 U/L Total Protein 7.6 GM/DL Albumin 3.5 GM/DL MDM Medical Decision Making Medical Screen Exam Complete: Yes Emergency Medical Condition: Yes Differential Diagnosis Concussion versus intracranial injury versus soft tissue. Narrative Course 26-year-old female who presents with headache and dizziness after striking her head on a table 2 days ago. The patient has no focal neurologic deficits. The patient is awake and appropriate. CT scan shows no evidence of acute intracranial trauma. The patient is also stating that she still spotting after giving 3 weeks ago. She has no appointment within next few days with her OB doctor. Her hemoglobin is 10.1. She is instructed to follow up with her OB doctor within one or 2 days. She is instructed to call tomorrow. This is likely a concussion. She is instructed to take Tylenol as needed for discomfort. Diagnosis Primary Impression: Closed head injury Additional Impression: Mild anemia Additional Instructions: Call OB physician today for appointment. Tylenol as needed for discomfort. Disposition: 01 DISCHARGE HOME Condition: Stable Ryan Mckeon MD Apr 06, 2017 22:31
[2017-04-06 22:47] LABS: AUTOMATED NEUTROPHIL # 5.8 TH/MM3 (1.8-7.7); BASOPHIL # 0.1 TH/MM3 (0-0.2); BASOPHIL % 0.7 % (0.0-2.0); EOSINOPHIL # 0.1 TH/MM3 (0-0.4); EOSINOPHIL % 1.3 % (0.0-4.0); HEMATOCRIT 31.9 % (35.0-46.0); HEMO FLAGS DIFF FINAL; LYMPH % 29.2 % (9.0-44.0); LYMPHOCYTE # 2.8 TH/MM3 (1.0-4.8); MEAN CELL VOLUME 76.6 FL (80.0-100.0); MEAN CORPUSCULAR HEMOGLOBIN 24.6 PG (27.0-34.0); MEAN CORPUSCULAR HGB CONC 32.1 % (32.0-36.0); MONO % 7.8 % (0.0-8.0); PLATELET COUNT 262 TH/MM3 (150-450); RED BLOOD COUNT 4.17 MIL/MM3 (4.00-5.30); RED CELL DISTRIBUTION WIDTH 17.1 % (11.6-17.2); WHITE BLOOD COUNT 9.6 TH/MM3 (4.0-11.0)
--- NOTE | 2017-04-06 22:50 | RADRPT ---
EXAM DATE/TIME: 04/06/2017 22:42 [facility] COMPARISON: No previous studies available for comparison. INDICATIONS : Hit head on table 2 days ago. Headaches with nausea. RADIATION DOSE: 40.12 CTDIvol (mGy) MEDICAL HISTORY : None SURGICAL HISTORY : None. ENCOUNTER: Initial ACUITY: 2 days PAIN SCALE: 5/10 LOCATION: cranial TECHNIQUE: Multiple contiguous axial images were obtained of the head. Using automated exposure control and adj ustment of the mA and/or kV according to patient size, radiation dose was kept as low as reasonably a chievable to obtain optimal diagnostic quality images. FINDINGS: CEREBRUM: The ventricles are normal for age. No evidence of midline shift, mass lesion, hemorrhage or acute in farction. No extra-axial fluid collections are seen. POSTERIOR FOSSA: The cerebellum and brainstem are intact. The 4th ventricle is midline. The cerebellopontine angle i s unremarkable. EXTRACRANIAL: The visualized portion of the orbits is intact. SKULL: The calvaria is intact. No evidence of skull fracture. CONCLUSION: Negative noncontrast CT. Nikko Pollack MD on April 06, 2017 at 22:47 Board Certified Radiologist. This report was verified electronically.
[2017-04-06 23:05] LABS: ALKALINE PHOSPHATASE 113 U/L (45-117); TOTAL BILIRUBIN ADULT 0.1 MG/DL (0.2-1.0)
[2017-04-06 23:53] LABS: ALT (GPT) 17 U/L (10-53); ANION GAP 11 MEQ/L (5-15); AST (GOT) 19 U/L (15-37); BICARBONATE 25.7 MEQ/L (21.0-32.0); BLOOD UREA NITROGEN 15 MG/DL (7-18); CHLORIDE 106 MEQ/L (98-107); GLOMERULAR FILTRATION RATE 86 ML/MIN (>89); POTASSIUM 3.9 MEQ/L (3.5-5.1); SODIUM (NA) 143 MEQ/L (136-145)
== END 2017-04-07 00:56 | disposition home or self-care (01) ==
LOC: NEPE 21:14
DX: S09.90XA Unspecified injury of head, initial encounter (principal); D64.9 Anemia, unspecified; W22.03XA Walked into furniture, initial encounter; Y92.009 Unspecified place in unspecified non-institutional (private) residence as the place of occurrence of the external cause
CPT/HCPCS: 70450; 80053; 85025

== ENCOUNTER 2017-04-09 20:19 | Observation (INO) | payer MEDICAID ==
[~2017-04-09] VITALS: Ht 170.2 cm; Wt 121.8 kg
[~2017-04-09 20:19] MED LIST changes: -DICL250 PO; -IBUP-232 PO; -OXYC1TAB63 PO; -PANT20 PO; -PREN29TA PO; -PRIL20CA9 PO; +PRIL20TA2 PO
[2017-04-09 20:23] VITALS: BP 144/90; PULSE 112; RESP 20; TEMP 98.8; O2SAT 99
[2017-04-09] MEDS ORDERED: ONDANSETRON HCL 4 MG/2 ML VIAL IVP ONE (20:45)
[2017-04-09] MEDS ORDERED: SODIUM CHLORIDE 0.9% FLUSH 10 ML FLUSH IV FLUSH PRN (20:45)
[2017-04-09] MEDS ORDERED: MORPHINE SULFATE 4 MG/ML INJ IV PUSH ONE ×2 (20:45→21:15)
--- NOTE | 2017-04-09 20:52 | PD ---
HPI Chief Complaint: Injury Time Seen by Provider: 20:46 Travel History International Travel<30 days: No Contact w/Intl Traveler<30days: No Traveled to known affect area: No History of Present Illness HPI Patient comes in complaining of right wrist pain status post fall after stepping on her son's ball just prior coming to the emergency department and landing on outstretched hand. Patient applied ice prior to coming to the emergency department with minimal to no relief since. Patient reports pain is stabbing/aching throughout her wrist radiates into her hands. Pain is worse with movement of her wrist and fingers. Patient denies hitting her head or loss of consciousness. Patient is one month . PFSH Past Medical History Diminished Hearing: No GERD: Yes Immunizations Current: Yes Tetanus Vaccination: < 5 Years Influenza Vaccination: Yes ?: Not : 1 Para: 0 Social History Alcohol Use: No Tobacco Use: No Substance Use: No Allergies-Medications (Allergen,Severity, Reaction): Coded Allergies: No Known Allergies (Verified , 04/09/17) Reported Meds & Prescriptions Reported Meds & Active Scripts Active Reported Prilosec (Omeprazole Magnesium) 20 Mg Tab 20 Mg PO DAILY Review of Systems Except as stated in HPI: all other systems reviewed are Neg Physical Exam Narrative GENERAL: Well-developed, overly nourished, in mild distress, and non-ill appearing. SKIN: Focused skin assessment warm and dry. HEAD: Atraumatic. Normocephalic. EYES: Pupils equal and round. EOMI. No scleral icterus. No injection or drainage. ENT: No nasal bleeding or discharge. Mucous membranes pink and moist. NECK: Trachea midline. Supple. No nuclear rigidity. CARDIOVASCULAR: Radial pulses 2+, intact, and equal bilaterally. Capillary refill less than 2 seconds.. RESPIRATORY: No accessory muscle use. No respiratory distress. MUSCULOSKELETAL: Obvious deformities right wrist. No clubbing. No cyanosis. No edema. Decreased range of motion right wrist and hand secondary to pain. Wrist: Capillary refill less than 2 seconds distal to injury and equal BL. Decreased range of motion distal to injury secondary to pain and rest. NV intact distal to injury. No tenderness to the anatomical snuffbox. Patient had splint placed in triage however denies any improvement of pain with this. States it feels better with it off. NEUROLOGICAL: Awake and alert. No obvious cranial nerve deficits. Motor grossly within normal limits. Normal speech. PSYCHIATRIC: Appropriate mood and affect; insight and judgment normal. Data Data Last Documented VS Vital Signs Date Time Temp Pulse Resp B/P Pulse Ox O2 Delivery O2 Flow Rate FiO2 04/09/17 21:30 16 04/09/17 20:23 98.8 112 144/90 99 Room Air Orders Basic Metabolic Panel (Bmp) (04/09/17 20:42) Complete Blood Count With Diff (04/09/17 20:42) Prothrombin Time / Inr (Pt) (04/09/17 20:42) Act Partial Throm Time (Ptt) (04/09/17 20:42) Iv Access Insert/Monitor (04/09/17 20:42) Ecg Monitoring (04/09/17 20:42) Oximetry (04/09/17 20:42) Morphine Inj (Morphine Inj) (04/09/17 20:45) Ondansetron Inj (Zofran Inj) (04/09/17 20:45) Sodium Chloride 0.9% Flush (Ns Flush) (04/09/17 20:45) Wrist, Complete ([id number]) (04/09/17 ) Ice/Cold Pack (04/09/17 20:44) Morphine Inj (Morphine Inj) (04/09/17 21:15) Splint Or Brace Apply/Monitor (04/09/17 21:36) Midazolam Inj (Versed Inj) (04/09/17 21:45) Labs Laboratory Tests Test 04/09/17 21:00 White Blood Count 9.9 TH/MM3 Red Blood Count 4.32 MIL/MM3 Hemoglobin 10.4 GM/DL Hematocrit 33.4 % Mean Corpuscular Volume 77.2 FL Mean Corpuscular Hemoglobin 24.0 PG Mean Corpuscular Hemoglobin 31.1 % Concent Red Cell Distribution Width 17.9 % Platelet Count 294 TH/MM3 Mean Platelet Volume 9.5 FL Neutrophils (%) (Auto) 65.8 % Lymphocytes (%) (Auto) 26.2 % Monocytes (%) (Auto) 6.3 % Eosinophils (%) (Auto) 1.0 % Basophils (%) (Auto) 0.7 % Neutrophils # (Auto) 6.6 TH/MM3 Lymphocytes # (Auto) 2.6 TH/MM3 Monocytes # (Auto) 0.6 TH/MM3 Eosinophils # (Auto) 0.1 TH/MM3 Basophils # (Auto) 0.1 TH/MM3 CBC Comment DIFF FINAL Differential Comment Prothrombin Time 10.1 SEC Prothromb Time International 0.9 RATIO Ratio Activated Partial 27.0 SEC Thromboplast Time Sodium Level 139 MEQ/L Potassium Level 3.9 MEQ/L Chloride Level 105 MEQ/L Carbon Dioxide Level 24.6 MEQ/L Anion Gap 9 MEQ/L Blood Urea Nitrogen 12 MG/DL Creatinine 0.82 MG/DL Estimat Glomerular Filtration 86 ML/MIN Rate Random Glucose 107 MG/DL Calcium Level 8.9 MG/DL [facility] Medical Decision Making Medical Screen Exam Complete: Yes Emergency Medical Condition: Yes Interpretation(s) Wrist x-ray read by the radiologist shows: Colles' fracture right wrist with mild anterior angulation deformity in the distal radius and intra-articular extension. Differential Diagnosis Fracture, sprain, contusion, dislocation, other Narrative Course Patient was seen and examined. IV was established. Place patient on reinforcement maker. Patient was given morphine for pain and Zofran for nausea. Initial laboratory and radiological studies were ordered. X-ray was obtained and reviewed.. Labs were reviewed. Reduction was performed by Dr. Coburn and splint was placed. Discussed all findings and plan care of patient wants to be admitted for surgical intervention tomorrow. All questions were answered. Patient remained stable throughout ED course. Physician Communication Physician Communication [id number] Valente's ROSA Haynes, states patient had a be admitted for surgical intervention tomorrow for follow-up as an outpatient approximately a week. I discussed with patient, who wants to be admitted. [place] agrees to admit patient to Dr. Valente's service for surgical intervention tomorrow. NPO after midnight.. Diagnosis Primary Impression: Right wrist fracture Qualified Code: S62.101A - Right wrist fracture, closed, initial encounter Admitting Information Admitting Physician Requests: Admit Condition: Stable Tony Ellison Apr 09, 2017 20:52
[2017-04-09 21:07] VITALS: RESP 16
[2017-04-09 21:24] LABS: AUTOMATED NEUTROPHIL # 6.6 TH/MM3 (1.8-7.7); BASOPHIL # 0.1 TH/MM3 (0-0.2); BASOPHIL % 0.7 % (0.0-2.0); EOSINOPHIL # 0.1 TH/MM3 (0-0.4); HEMATOCRIT 33.4 % (35.0-46.0); HEMO FLAGS DIFF FINAL; LYMPH % 26.2 % (9.0-44.0); LYMPHOCYTE # 2.6 TH/MM3 (1.0-4.8); MEAN CELL VOLUME 77.2 FL (80.0-100.0); MEAN CORPUSCULAR HGB CONC 31.1 % (32.0-36.0); MONO % 6.3 % (0.0-8.0); NEUT % 65.8 % (16.0-70.0); PLATELET COUNT 294 TH/MM3 (150-450); RED BLOOD COUNT 4.32 MIL/MM3 (4.00-5.30); RED CELL DISTRIBUTION WIDTH 17.9 % (11.6-17.2); WHITE BLOOD COUNT 9.9 TH/MM3 (4.0-11.0)
[2017-04-09 21:31] LABS: INTERNATIONAL NORMALIZED RATIO 0.9 RATIO; PROTHROMBIN TIME - PATIENT 10.1 SEC (9.8-11.6)
--- NOTE | 2017-04-09 21:40 | RADRPT ---
EXAM DATE/TIME: 04/09/2017 21:06 [facility] COMPARISON: No previous studies available for comparison. INDICATIONS : Right wrist pain after tripping on a ball and falling at home. MEDICAL HISTORY : None. SURGICAL HISTORY : None. ENCOUNTER: Initial ACUITY: 1 day PAIN SCORE: 10/10 LOCATION: Right wrist FINDINGS: Three view examination of the right wrist demonstrates mildly displaced intra-articular fracture dist al radius with ulnar styloid fracture. No dislocation. CONCLUSION: 1. Colles' fracture right wrist with mild anterior angulation deformity in the distal radius and intr a-articular extension. Michael Workman MD on April 09, 2017 at 21:37 Board Certified Radiologist. This report was verified electronically.
[2017-04-09] MEDS ORDERED: MIDAZOLAM HCL 2 MG/2 ML VIAL IV PUSH ONE (21:45)
[2017-04-09 21:53] LABS: BICARBONATE 24.6 MEQ/L (21.0-32.0); POTASSIUM 3.9 MEQ/L (3.5-5.1)
[2017-04-09] MEDS ORDERED: SODIUM CHLORIDE 0.9% FLUSH 10 ML FLUSH IVF PRN (22:15)
[2017-04-09 22:34] VITALS: O2SAT 98
[2017-04-09] MEDS ORDERED: ACETAMINOPHEN/HYDROcodone 325 MG/5 MG TAB PO PRN (23:45)
[2017-04-10] MEDS: ACETAMINOPHEN/HYDROcodone 325 MG/7.5 MG TAB PO PRN ×2 (00:21→05:10)
[2017-04-10 00:25] VITALS: BP 146/91; PULSE 90; RESP 18; TEMP 98.8; O2SAT 100
[2017-04-10] MEDS ORDERED: POVIDONE IODINE 5% (ANTISEPSIS KIT) 4 APPLICATIONS EACH NARE PRN (02:30)
[2017-04-10] MEDS ORDERED: METOPROLOL TARTRATE 25 MG TAB PO PRN (02:30)
[2017-04-10] MEDS ORDERED: CHLORHEXIDINE GLUCONATE 2 % 1 PACK (2 CLOTHS) TOPICAL PRN (02:30)
[2017-04-10] MEDS ORDERED: SODIUM CHLORID 0.9% 500 ML IV PRN (02:30)
[2017-04-10] MEDS ORDERED: LACTATED RINGER'S 1000 ML IV PRN (02:30)
[2017-04-10] MEDS ORDERED: INSULIN HUMAN REGULAR 1,000 UNITS/10 ML VIAL SQ PRN (02:30)
[2017-04-10 04:09] VITALS: BP 112/70; PULSE 89; RESP 18; TEMP 98.8; O2SAT 98
--- NOTE | 2017-04-10 07:16 | PD.ORT.PN ---
Subjective Subjective Remarks Slip and fall with right wrist pain and deformity. Examined bedside and sugar tong splint. States that she does have a slight headache. No other complaints. Did not hit her head and the past 24 hours. Objective Vitals Vital Signs Date Time Temp Pulse Resp B/P Pulse Ox O2 Delivery O2 Flow Rate FiO2 04/10/17 04:09 98.8 89 18 112/70 98 04/10/17 00:25 98.8 90 18 146/91 100 04/09/17 22:34 98 04/09/17 21:30 16 04/09/17 21:17 16 04/09/17 21:07 16 04/09/17 20:23 98.8 112 20 144/90 99 Room Air I/O 04/09/17 04/09/17 04/09/17 04/10/17 04/10/17 04/10/17 07:00 15:00 23:00 07:00 15:00 23:00 Output Total 0 ml Balance 0 ml Output Stool Total 0 ml # Voids 3 Result Diagram: 04/09/17 2100 04/09/17 2100 Other Results Laboratory Tests Test 04/09/17 21:00 Prothrombin Time 10.1 SEC (9.8-11.6) Prothromb Time International 0.9 RATIO Ratio Imaging Last 72 hours Impressions Wrist X-Ray 04/09/17 0000 Signed Impressions: Service Date/Time: Sunday, April 09, 2017 21:06 - CONCLUSION: 1. Colles' fracture right wrist with mild anterior angulation deformity in the distal radius and intra-articular extension. Micheal Workman MD Objective Remarks Right upper extremity: No pain with shoulder motion. Sugar tong splint well- padded in place. Intact sensation distally over the radial ulnar and median nerve distributions with good capillary refills. She has pain with movement of fingers Assessment & Plan Assessment and Plan Right interarticular distal radius fracture Maintain splint Nothing by mouth surgery this morning for surgical fixation We'll plan for discharge to home today Follow-up with Dr. Stallings or PA in 2 weeks Nikko Taylor Jr. Apr 10, 2017 07:16
[2017-04-10 08:00] VITALS: BP 118/67; PULSE 89; RESP 18; TEMP 97.2; O2SAT 97
[2017-04-10 08:08] VITALS: O2SAT 99
[2017-04-10] MEDS: SODIUM CHLORIDE 0.9% FLUSH 10 ML FLUSH IV FLUSH SCH (09:00)
--- NOTE | 2017-04-10 10:00 | MB ---
cc: BETO MISHRA DATE OF CONSULTATION: 04/10/2017 REASON FOR CONSULTATION: Right distal radius fracture. HISTORY Chikis is a 26-year-old female who had a fall at home. She stepped on one of her son's toys causing her to lose her balance and fall. She landed on outstretched right wrist. She had immediate right wrist pain. She presented to the emergency room where she was found to have a displaced right distal radius fracture. She denies dizziness, syncope or loss of consciousness. Her wrist pain is worse with movement and is improved with rest. PAST MEDICAL HISTORY ALLERGIES None. MEDICATIONS Prilosec. ILLNESSES Reflux. SURGERIES None. SOCIAL HISTORY The patient denies alcohol, tobacco or drug use. She has a one month old baby and a 16 month-old toddler. FAMILY HISTORY: Noncontributory. REVIEW OF SYSTEMS The patient denies headache, visual changes, neck pain, chest pain, shortness of breath, abdominal pain, nausea, vomiting or recent weight loss. She complains of right wrist pain. PHYSICAL EXAMINATION The patient is a pleasant 26 year-old female who is awake and alert. She is mildly overweight. She is alert and oriented x3. Vital signs: Temperature 97.2, pulse 89, respirations 18, blood pressure 118/67, O2 sat 97% on room air. Head: The patient is normocephalic. Pupils are equal. Neck: Soft, nontender. Trachea is midline. Abdomen: Soft, nontender, nondistended. Extremities: Examination of right arm reveals no tenderness on her shoulder or elbow. She has mild swelling around her wrist. There is some deformity visible. Skin is intact. She has intact sensation in all fingers. She has good capillary refill of all fingers. Examination of left arm reveals no pain with shoulder, elbow or wrist motion. She has intact sensation of all fingers. She has good capillary refill of all fingers. Skin is intact. Examination of bilateral lower extremities reveals no significant pain with hip, knee or ankle motion. Sensation is intact in both feet. Dorsalis pedis pulses are palpable. X-RAYS: X-rays of left wrist reviewed. X-rays reveal a mildly comminuted displaced left distal radius fracture. There is significant dorsal tilt of the articular surface. IMPRESSION Displaced right distal radius fracture. PLAN Treatment options were discussed with the patient. At this point I would recommend open reduction, internal fixation. Risks of surgery include bleeding, infection, injury to arteries, nerves, blood vessels, nonunion, malunion, painful hardware, tendon rupture, wrist stiffness, wrist arthritis as well as medical complications associated with anesthesia. All questions were answered. I will plan on surgery today. A mid-level provider in my office (nurse practitioner or physician events administrative assistant) may see this patient on follow-up visits and continue to implement the objectives of this plan including: Starting or adjusting medications, injections , cast application, orthotics, brace application, physical therapy, radiological studies (including x-ray, MRI, CT, ultrasound, bone scan), vascular studies, neurologic studies, specialist consultation, and proceeding with surgical management, as appropriate. MD LAVELLE Hawthorne/JAMEEL /9:26 AM /9:45 AM MARGY
[2017-04-10] MEDS ORDERED: SODIUM CHLOR 0.9% 250 ML INJ 250 ML ONE (10:49)
[2017-04-10] MEDS ORDERED: BUPIVACAINE/EPINEPHRINE 0.25% PF 10 ML VIAL ONE (10:49)
[2017-04-10] MEDS ORDERED: ceFAZolin 2 GM PREMIX 50 ML ONE (10:49)
[2017-04-10] MEDS ORDERED: VANCOMYCIN HCL 1000 MG VIAL ONE (10:49)
[2017-04-10] MEDS ORDERED: ACETAMINOPHEN/HYDROcodone 325 MG/7.5 MG TAB PO PRN (11:30)
[2017-04-10] MEDS ORDERED: MORPHINE SULFATE 4 MG/ML INJ IV PUSH PRN (11:30)
--- NOTE | 2017-04-10 11:38 | PD.OP ---
cc: Ezequiel Stallings MD Operative Report Date of Surgery: Apr 10, 2017 Preoperative Diagnosis: Displaced right distal radius fracture Postoperative Diagnosis: Procedure: Open reduction internal fixation right distal radius Anesthesia: Gen. Surgeon: Ezequiel Stallings Grocery Store Associate(s): AMINTA Paz PA-C The surgical procedure was assisted by my physician investment sales assistant. My P.A. presence was necessary throughout this case for the manipulation and positioning of the surgical extremity. My P.A. was assisting me throughout the duration of this procedure. The skill set of a physician investment sales assistant was medically necessary to complete this procedure. During the surgical case the screen making technician was working at the back table and the physician investment sales assistant was directly assisting me. Operation and Findings: Patient was seen and evaluated preoperatively and found to have a displaced distal radius fracture. Informed consent was obtained after detailed discussion of risk and benefits including bleeding, infection, injury to arteries, nerves, and blood vessels, weakness and numbness of hand, and tendon rupture. Informed consent was obtained. Patient received IV antibiotics prior to incision. Timeout procedure was performed. Operative extremity was prepped with alcohol followed by Hibiclens and draped usual sterile fashion. A standard volar approach to the distal radius was utilized. A 3 inch incision was made over the FCR tendon. Tendon sheath was opened. Pronator quadratus was elevated up. The fracture site was now visualized. The fracture did have intra-articular extension. Traction was applied. The articular surface was reduced. Fracture fragments were manipulated to achieve excellent reduction. K wires were used to hold provisional fixation. Fluoroscopy confirmed appropriate alignment of fracture. A ITS distal radius plate was selected. Plate was provisionally fixed to bone with K wires. 2.7 cortical screws were used to compress plate to bone. Fluoroscopy confirmed appropriate alignment of fracture with well-placed hardware. Multiple 2.4 locking screws were now placed distally. Screws were predrilled and measured for appropriate length. 2 additional screws were placed into the shaft. K wires were removed. Final fluoroscopy revealed excellent of fracture with well-placed hardware. The wound was thoroughly irrigated with sterile saline. At this point it was noted that the distal radial ulnar joint was wide and unstable. The distal radial joint was manually reduced. Fluoroscopy confirmed appropriate reduction. A small incision was made over the subcutaneous border of the ulna. A 3 mm pin was now placed through the ulna in the distal radius to hold reduction. Fluoroscopy confirmed appropriate reduction of the distal radioulnar joint. Subcutaneous tissue was closed with 3-0 Vicryl and skin was closed with 3-0 nylon. Sterile dressings were applied with Xeroform, 4 x 4, soft roll, and a well padded volar splint. Patient was awakened and transferred to recovery room in stable condition Ezequiel Stallings MD Apr 10, 2017 11:38
[2017-04-10] MEDS ORDERED: *MEPERIDINE 25 MG INJ VIAL PERIprocedural Use ONLY ONE (11:51)
[2017-04-10] MEDS ORDERED: MIDAZOLAM HCL 2 MG/2 ML VIAL ONE (12:00)
[2017-04-10] MEDS ORDERED: MORPHINE SULFATE 4 MG/ML INJ ONE (12:01)
[2017-04-10] MEDS ORDERED: fentaNYL CITRATE 250 MCG/5 ML AMP ONE (12:01)
[2017-04-10] MEDS ORDERED: *morphine SULFATE 8 MG/ML PERIprocedure ONLY ONE (12:02)
--- NOTE | 2017-04-10 12:03 | RADRPT ---
EXAM DATE/TIME: 04/10/2017 11:14 [facility] COMPARISON: No previous studies available for comparison. INDICATIONS : Open reduction right wrist. MEDICAL HISTORY : None. SURGICAL HISTORY : None. ENCOUNTER: Subsequent ACUITY: 2 days PAIN SCORE: Non-responsive. LOCATION: Right upper extremity FINDINGS: Plate with screws is seen bridging the fracture of the distal radius. Alignment is anatomic. CONCLUSION: Anatomic alignment. Duc Osuna MD FACR on April 10, 2017 at 11:59 Board Certified Radiologist. This report was verified electronically.
[2017-04-10] MEDS ORDERED: LACTATED RINGER'S 1000 ML INJ 1,000 ML IV ONE (14:11)
[2017-04-10] MEDS ORDERED: PROPOFOL 200 MG/20 ML AMP IV ONE (14:11)
[2017-04-10] MEDS ORDERED: ONDANSETRON HCL 4 MG/2 ML VIAL IV PUSH ONE (14:11)
[2017-04-10] MEDS ORDERED: SODIUM CHLOR 0.9% 250 ML INJ 250 ML IV ONE (14:12)
[2017-04-10] MEDS ORDERED: ACETAMINOPHEN/HYDROcodone 325 MG/10 MG TAB PO PRN (15:00)
[2017-04-10 16:00] VITALS: BP 122/69; PULSE 80; RESP 18; TEMP 99; O2SAT 99
[2017-04-10] MEDS: diphenhydrAMINE HCL 25 MG CAP PO PRN ×2 (16:10→22:41)
[2017-04-10] MEDS: ACETAMINOPHEN/HYDROcodone 325 MG/10 MG TAB PO PRN ×2 (16:10→21:07)
[2017-04-10 20:25] VITALS: BP 112/67; PULSE 82; RESP 17; TEMP 98.5; O2SAT 99
[2017-04-11 00:20] VITALS: BP 110/54; PULSE 85; RESP 17; TEMP 98.1; O2SAT 96
[2017-04-11 04:20] VITALS: BP 107/56; PULSE 87; RESP 17; TEMP 98; O2SAT 98
[2017-04-11] MEDS: ACETAMINOPHEN/HYDROcodone 325 MG/10 MG TAB PO PRN ×5 (06:32→19:32)
[2017-04-11] MEDS ORDERED: HYDR-3583 PO (06:33)
--- NOTE | 2017-04-11 06:36 | PD.ORT.PN ---
Subjective Subjective Remarks Pain improved. No new complaints Objective Vitals Vital Signs Date Time Temp Pulse Resp B/P Pulse Ox O2 Delivery O2 Flow Rate FiO2 04/11/17 04:20 98.0 87 17 107/56 98 04/11/17 00:20 98.1 85 17 110/54 96 04/10/17 20:25 98.5 82 17 112/67 99 04/10/17 16:00 99.0 80 18 122/69 99 04/10/17 12:45 98.8 92 14 120/64 98 Nasal Cannula 2 04/10/17 12:30 94 16 128/65 98 04/10/17 12:15 86 10 128/64 97 04/10/17 12:00 100 20 133/69 98 Nasal Cannula 2 04/10/17 11:51 98.8 112 20 130/68 92 Nasal Cannula 2 04/10/17 08:08 99 21 04/10/17 08:00 97.2 89 18 118/67 97 I/O 04/10/17 04/10/17 04/10/17 04/11/17 04/11/17 04/11/17 07:00 15:00 23:00 07:00 15:00 23:00 Intake Total 200 ml 240 ml Output Total 0 ml 30 ml Balance 0 ml 170 ml 240 ml Intake Oral 240 ml Other 200 ml Output Stool Total 0 ml Estimated Blood Loss 30 ml # Voids 3 2 2 # Bowel Movements 0 0 Result Diagram: 04/09/17 2100 04/09/17 2100 Imaging Last 72 hours Impressions Wrist X-Ray 04/09/17 0000 Signed Impressions: Service Date/Time: Sunday, April 09, 2017 21:06 - CONCLUSION: 1. Colles' fracture right wrist with mild anterior angulation deformity in the distal radius and intra-articular extension. Michael Workman MD Objective Remarks Right upper extremity: No pain with shoulder motion. Sugar tong splint well- padded in place. Intact sensation distally over the radial ulnar and median nerve distributions with good capillary refills. She has pain with movement of fingers Assessment & Plan Assessment and Plan Right interarticular distal radius fracture POD 1 ORIF with percutaneous pinning of distal radial ulnar joint Maintain splint Nonweightbearing right upper extremity Sling when out of bed Discharged home today Follow-up with Dr. Stallings or PA in 2 weeks Nikko Taylor Jr. Apr 11, 2017 06:36
[2017-04-11 08:00] VITALS: BP 106/67; PULSE 85; RESP 20; TEMP 97; O2SAT 97
[2017-04-11] MEDS: SODIUM CHLORIDE 0.9% FLUSH 10 ML FLUSH IV FLUSH SCH ×2 (08:03→19:32)
[2017-04-11] MEDS: diphenhydrAMINE HCL 25 MG CAP PO PRN (10:30)
[2017-04-11 12:10] VITALS: BP 114/65; PULSE 85; RESP 20; TEMP 96.6; O2SAT 97
[2017-04-11 16:00] VITALS: BP 112/70; PULSE 89; RESP 20; TEMP 97.7; O2SAT 96
== END 2017-04-11 21:21 | disposition home or self-care (01) ==
LOC: NEPC 20:19 → UNDOADMIN 22:19 → NEDA 22:19 → N06A 23:34 → NEDA 23:34 → N06A 04-10 14:40 → INTOOBSV 04-10 14:40 → UNDODISIN 04-11 21:21
PROVIDERS: ADMIT Orthopaedic Surgery Orthopaedic Trauma; ATTEND Orthopaedic Surgery Orthopaedic Trauma
DX: S52.571A Other intraarticular fracture of lower end of right radius, initial encounter for closed fracture (principal); S52.611A Displaced fracture of right ulna styloid process, initial encounter for closed fracture; M25.531 Pain in right wrist; M79.641 Pain in right hand; K21.9 Gastro-esophageal reflux disease without esophagitis; W18.31XA Fall on same level due to stepping on an object, initial encounter; Y93.01 Activity, walking, marching and hiking; Y92.009 Unspecified place in unspecified non-institutional (private) residence as the place of occurrence of the external cause
CPT/HCPCS: 01830; 25608; 73100; 73110; 76000; 80048; 85025; 85610; 85730; 96374; 96375; 99285; C1713; J0690; J2175; J2250; J2270; J2405; J3010; J3370; J7050; J7120; G0378

== ENCOUNTER 2017-05-12 15:40 | Emergency (ER) | payer MEDICAID ==
[~2017-05-12] VITALS: Ht 170.2 cm; Wt 123.0 kg
[~2017-05-12 15:40] MED LIST changes: +CARPAL TUNNEL W1 MIS; +HYDR-3583 PO
[2017-05-12 15:51] VITALS: BP 140/96; PULSE 91; RESP 14; TEMP 98.2; O2SAT 98
[2017-05-12] MEDS ORDERED: IRONTAB5 PO (16:57)
--- NOTE | 2017-05-12 17:42 | PD ---
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 She had the IUD placed a couple of weeks ago. This is her first period since it was placed. Since her period started she's noted the string seems to be lower than before and she is having pubic pain. She has not had fever or chills. There has been no vomiting or diarrhea PFSH Past Medical History Anemia: Yes Diminished Hearing: No GERD: Yes Immunizations Current: Yes Tetanus Vaccination: < 5 Years Influenza Vaccination: Yes ?: Not LMP: ON NOW : 1 Para: 1 Social History Alcohol Use: Yes (RARE) Tobacco Use: No Substance Use: No Allergies-Medications (Allergen,Severity, Reaction): Coded Allergies: No Known Allergies (Verified , 05/12/17) Reported Meds & Prescriptions Reported Meds & Active Scripts Active Carpal Tunnel Wrist Stabizer 1 Mis Mis 1 Ea .ROUTE DIRECTED wear as frequently as possible Durration of use: 6-8 weeks Hydrocodone-Acetaminophen 10-325 mg Tab 1 Tab PO Q4H PRN Reported [Iron] 1 Tab PO DAILY Prilosec (Omeprazole Magnesium) 20 Mg Tab 20 Mg PO DAILY Review of Systems General / Constitutional: No: Fever, Chills Eyes: No: Diploplia, Blurred Vision HENT: No: Headaches, Vertigo Cardiovascular: No: Chest Pain or Discomfort Respiratory: No: Cough, Shortness of Breath Genitourinary: Positive: Pelvic Pain, Vaginal Bleeding Skin: No Rash Physical Exam Narrative GENERAL: [-] SKIN: Focused skin assessment warm/dry. HEAD: Atraumatic. Normocephalic. EYES: Pupils equal and round. No scleral icterus. No injection or drainage. ENT: No nasal bleeding or discharge. Mucous membranes pink and moist. NECK: Trachea midline. No JVD. GASTROINTESTINAL: Abdomen soft, non-tender, nondistended. Hepatic and splenic margins not palpable. Pelvic: On speculum exam the ring of the IUD is apparent in the lower portion of the IUD is visible. This was pulled and came out with minimal pressure. MUSCULOSKELETAL: No obvious deformities. No clubbing. No cyanosis. No edema. NEUROLOGICAL: Awake and alert. No obvious cranial nerve deficits. Motor grossly within normal limits. Normal speech. PSYCHIATRIC: Appropriate mood and affect; insight and judgment normal. Data Data Last Documented VS Vital Signs Date Time Temp Pulse Resp B/P Pulse Ox O2 Delivery O2 Flow Rate FiO2 05/12/17 16:55 05/12/17 15:51 98.2 91 14 98 Room Air MDM Medical Decision Making Medical Screen Exam Complete: Yes Emergency Medical Condition: Yes Medical Record Reviewed: Yes Differential Diagnosis Differential includes spontaneous expulsion of IUD, cervicitis Narrative Course Patient had partial expulsion of the IUD on examination and the IUD has been removed. She has been cautioned that she is now fertile Diagnosis Primary Impression: IUD complication Additional Impression: spontaneous expulsion of IUD Disposition: 01 DISCHARGE HOME Condition: Stable Harpreet Hernandes MD May 12, 2017 17:42
[2017-05-12 17:50] VITALS: BP 142/102
== END 2017-05-12 17:53 | disposition home or self-care (01) ==
LOC: PHED 15:40
DX: T83.32XA Displacement of intrauterine contraceptive device, initial encounter (principal)
CPT/HCPCS: 99284

== ENCOUNTER 2017-05-23 04:15 | Inpatient (IN) | payer MEDICAID ==
[~2017-05-23] VITALS: Ht 172.7 cm; Wt 131.0 kg
[2017-05-23] VITALS (10 sets, daily range): BP systolic 102–153; BP diastolic 56–82; PULSE 68–140; RESP 18–20; TEMP 98.4–103.5; O2SAT 97–100
[~2017-05-23 04:15] MED LIST changes: +IRONTAB5 PO
[2017-05-23] MEDS ORDERED: iron PO (05:18)
[2017-05-23] MEDS ORDERED: SODIUM CHLOR 0.9% 1000 ML INJ 1,000 ML IV ONE ×3 (05:45→21:00)
[2017-05-23] MEDS ORDERED: ACETAMINOPHEN 325 MG TAB PO ONE (05:45)
--- NOTE | 2017-05-23 05:48 | PD ---
HPI Chief Complaint: Fever Time Seen by Provider: 05:25 Travel History International Travel<30 days: No Contact w/Intl Traveler<30days: No Traveled to known affect area: No History of Present Illness HPI 27yo F presents to the ED with multiple complaints today. States she has been feeling warm, abdominal pain and vaginal discharge for 2 days. Pain is mainly left lower abdomen and suprapubic region. States she had her IUD come out recently. Feels sob and had some chest pain earlier but thinks it is anxiety related. PFSH Past Medical History Anemia: Yes Diminished Hearing: No GERD: Yes Immunizations Current: Yes Tetanus Vaccination: < 5 Years Influenza Vaccination: No ?: Not LMP: 05/19/2017 : 2 Para: 2 Social History Alcohol Use: Yes (RARE) Tobacco Use: No Substance Use: No Allergies-Medications (Allergen,Severity, Reaction): Coded Allergies: No Known Allergies (Verified , 05/12/17) Reported Meds & Prescriptions Reported Meds & Active Scripts Active Hydrocodone-Acetaminophen 10-325 mg Tab 1 Tab PO Q4H PRN Reported [iron ] 1 Tab PO DAILY Prilosec (Omeprazole Magnesium) 20 Mg Tab 20 Mg PO DAILY Review of Systems Except as stated in HPI: all other systems reviewed are Neg Physical Exam Narrative GENERAL: 27yo F in mild distress. SKIN: Focused skin assessment warm/dry. HEAD: Atraumatic. Normocephalic. EYES: Pupils equal and round. No scleral icterus. No injection or drainage. ENT: No nasal bleeding or discharge. Mucous membranes pink and moist. NECK: Trachea midline. No JVD. CARDIOVASCULAR: Regular rate and rhythm. No murmur appreciated. RESPIRATORY: No accessory muscle use. Clear to auscultation. Breath sounds equal bilaterally. GASTROINTESTINAL: Abdomen soft, obese. +Suprapubic ttp and mild ttp LLQ. No rebound tenderness or guarding. PELVIC: +White discharge. No CMT or adnexal tenderness bilaterally. MUSCULOSKELETAL: No obvious deformities. No clubbing. No cyanosis. No edema. NEUROLOGICAL: Awake and alert. No obvious cranial nerve deficits. Motor grossly within normal limits. Normal speech. PSYCHIATRIC: Appropriate mood and affect; insight and judgment normal. Data Data Last Documented VS Vital Signs Date Time Temp Pulse Resp B/P Pulse Ox O2 Delivery O2 Flow Rate FiO2 05/23/17 10:13 98.4 69 18 102/70 97 Room Air Orders Complete Blood Count With Diff (05/23/17 05:31) Comprehensive Metabolic Panel (05/23/17 05:31) Lipase (05/23/17 05:31) Prothrombin Time / Inr (Pt) (05/23/17 05:31) Act Partial Throm Time (Ptt) (05/23/17 05:31) Urinalysis - C+S If Indicated (05/23/17 05:31) Iv Access Insert/Monitor (05/23/17 05:31) Ecg Monitoring (05/23/17 05:31) Oximetry (05/23/17 05:31) Sodium Chloride 0.9% Flush (Ns Flush) (05/23/17 05:45) Electrocardiogram (05/23/17 05:31) Ed Urine Pregnancytest Poc (05/23/17 05:31) Gc And Chlamydia Pcr (05/23/17 05:31) Wet Prep Profile (05/23/17 05:31) Chest, Single Ap (05/23/17 ) Lactic Acid Sepsis Protocol (05/23/17 05:31) Troponin I (05/23/17 05:31) Sodium Chlor 0.9% 1000 Ml Inj (Ns 1000 M (05/23/17 05:45) Acetaminophen (Tylenol) (05/23/17 05:45) Urine Culture (05/23/17 05:30) Ketorolac Inj (Toradol Inj) (05/23/17 06:30) Sodium Chlor 0.9% 1000 Ml Inj (Ns 1000 M (05/23/17 07:00) Influenzae A/B Antigen (05/23/17 06:47) Ceftriaxone Inj (Rocephin Inj) (05/23/17 07:00) Ct Abd/Pel W Iv Contrast(Rout) (05/23/17 ) Ct Pulmonary Angiogram (05/23/17 ) Azithromycin (Zithromax) (05/23/17 08:00) Iohexol 350 Inj (Omnipaque 350 Inj) (05/23/17 09:10) Enoxaparin Inj (Lovenox Inj) (05/23/17 10:30) Admit Order (Ed Use Only) (05/23/17 10:47) Labs Laboratory Tests Test 05/23/17 05/23/17 05/23/17 05:30 05:40 06:01 Urine Color YELLOW Urine Turbidity HAZY Urine pH 6.0 Urine Specific [place] 1.019 Urine Protein 30 mg/dL Urine Glucose (UA) NEG mg/dL Urine Ketones NEG mg/dL Urine Occult Blood TRACE Urine Nitrite NEG Urine Bilirubin NEG Urine Urobilinogen LESS THAN 2.0 MG/DL Urine Leukocyte Esterase LARGE Urine RBC 4 /hpf Urine WBC /hpf Urine Squamous Epithelial 4 /hpf Cells Urine Renal Epithelial Cells 1 /hpf Urine Bacteria RARE /hpf Urine Mucus FEW /lpf Microscopic Urinalysis Comment CULTURE INDICATED White Blood Count 11.3 TH/MM3 Red Blood Count 3.91 MIL/MM3 Hemoglobin 9.7 GM/DL Hematocrit 30.6 % Mean Corpuscular Volume 78.2 FL Mean Corpuscular Hemoglobin 24.9 PG Mean Corpuscular Hemoglobin 31.8 % Concent Red Cell Distribution Width 18.8 % Platelet Count 270 TH/MM3 Mean Platelet Volume 9.9 FL Neutrophils (%) (Auto) 86.6 % Lymphocytes (%) (Auto) 5.4 % Monocytes (%) (Auto) 7.2 % Eosinophils (%) (Auto) 0.2 % Basophils (%) (Auto) 0.6 % Neutrophils # (Auto) 9.8 TH/MM3 Lymphocytes # (Auto) 0.6 TH/MM3 Monocytes # (Auto) 0.8 TH/MM3 Eosinophils # (Auto) 0.0 TH/MM3 Basophils # (Auto) 0.1 TH/MM3 CBC Comment DIFF FINAL Differential Comment Prothrombin Time 10.5 SEC Prothromb Time International 1.0 RATIO Ratio Activated Partial 31.7 SEC Thromboplast Time Sodium Level 140 MEQ/L Potassium Level 3.6 MEQ/L Chloride Level 106 MEQ/L Carbon Dioxide Level 23.1 MEQ/L Anion Gap 11 MEQ/L Blood Urea Nitrogen 7 MG/DL Creatinine 0.86 MG/DL Estimat Glomerular Filtration 80 ML/MIN Rate Random Glucose 93 MG/DL Lactic Acid Level 1.4 mmol/L Calcium Level 8.8 MG/DL Total Bilirubin 0.6 MG/DL Aspartate Amino Transf 17 U/L (AST/SGOT) Alanine Aminotransferase 26 U/L (ALT/SGPT) Alkaline Phosphatase 129 U/L Troponin I LESS THAN 0.02 NG/ML Total Protein 8.1 GM/DL Albumin 3.6 GM/DL Lipase 86 U/L Clue Cells (Wet Prep) NONE SEEN Vaginal Trichomonas (Wet Prep) NONE SEEN Vaginal Yeast (Wet Prep) NONE SEEN Chlamydia trachomatis DNA NOT DETECTED (PCR) Neisseria gonorrhoeae DNA NOT DETECTED (PCR) MDM Medical Decision Making Medical Screen Exam Complete: Yes Emergency Medical Condition: Yes Interpretation(s) EKG: NSR 121bpm. Normal axis. TWI V2-V6. Differential Diagnosis Cystitis vs. colitis vs. bacterial vaginosis vs. PID Narrative Course 27yo F with abdominal pain, vaginal discharge and fever mainly. Also with some atypical chest pain and sob. Pt initially febrile at 102.9F. Tachycardic at 140. After 1 liter of NS IVF, heart rate decreased to 121bpm. Will give another NS IVF. Repeat temp after acetaminophen was 100.2F. Labs reviewed, WBC 11.3. H/H 9.7/30.6, a little less than baseline. Lactic acid 1.4. Troponin negative. UA showed large leukocyte. Culture indicated. Will cover with ceftriaxone 1gm IV. Wet prep pending. Pt reevaluated at bedside after toradol and still with abdominal pain so will do CTa/p. Pt states she is not as sob anymore but with the tachycardia, will do CTA to r/o PE. Denies any history of PE. Sign out to next team to follow up and disposition. Diagnosis Primary Impression: Pulmonary emboli Qualified Code: I26.99 - Other acute pulmonary embolism without acute cor pulmonale Admitting Information Admitting Physician Requests: Admit Rosario Dietz DO May 23, 2017 05:48
[2017-05-23 05:55] LABS: AUTOMATED NEUTROPHIL # 9.8 TH/MM3 (1.8-7.7); BASOPHIL # 0.1 TH/MM3 (0-0.2); BASOPHIL % 0.6 % (0.0-2.0); EOSINOPHIL % 0.2 % (0.0-4.0); HEMATOCRIT 30.6 % (35.0-46.0); HEMO FLAGS DIFF FINAL; LYMPH % 5.4 % (9.0-44.0); LYMPHOCYTE # 0.6 TH/MM3 (1.0-4.8); MEAN CELL VOLUME 78.2 FL (80.0-100.0); MEAN CORPUSCULAR HEMOGLOBIN 24.9 PG (27.0-34.0); MEAN CORPUSCULAR HGB CONC 31.8 % (32.0-36.0); MONO % 7.2 % (0.0-8.0); NEUT % 86.6 % (16.0-70.0); PLATELET COUNT 270 TH/MM3 (150-450); RED BLOOD COUNT 3.91 MIL/MM3 (4.00-5.30); RED CELL DISTRIBUTION WIDTH 18.8 % (11.6-17.2); WHITE BLOOD COUNT 11.3 TH/MM3 (4.0-11.0)
[2017-05-23 05:58] LABS: BACTERIA, URINE RARE /hpf; BLOOD, URINE TRACE (NEG); COMMENT (UR) CULTURE INDICATED; CULTURE IF INDICATED CULTURE INDICATED; GLUCOSE,URINE NEG (NEG); KETONE, URINE NEG (NEG); MUCUS URINE FEW /lpf (OCC); NITRITE,URINE NEG (NEG); RENAL EPITHELIAL CELLS 1 /hpf; SQUAMOUS EPITHELIAL CELL URINE 4 /hpf (0-5); URINE COLOR YELLOW (YELLW/STRAW)
--- NOTE | 2017-05-23 06:09 | RADRPT ---
EXAM DATE/TIME: 05/23/2017 05:33 [facility] COMPARISON: CHEST SINGLE AP, January 21, 2016, 21:04. INDICATIONS : Nausea and vomiting x 1 day MEDICAL HISTORY : None. SURGICAL HISTORY : None. ENCOUNTER: Initial ACUITY: 1 day PAIN SCORE: 9/10 LOCATION: Bilateral chest FINDINGS: Portable AP view of the chest demonstrates a normal-sized cardiac silhouette. No effusion, consolidat ion, or pneumothorax is visualized. The bones and soft tissues demonstrate no acute abnormality. CONCLUSION: No acute cardiopulmonary abnormality is identified. Hardik Joyce MD on May 23, 2017 at 6:07 Board Certified Radiologist. This report was verified electronically.
[2017-05-23 06:10] LABS: APTT (PATIENT) 31.7 SEC (24.3-30.1); PROTHROMBIN TIME - PATIENT 10.5 SEC (9.8-11.6)
[2017-05-23 06:20] LABS: ALT (GPT) 26 U/L (10-53); ANION GAP 11 MEQ/L (5-15); AST (GOT) 17 U/L (15-37); BICARBONATE 23.1 MEQ/L (21.0-32.0); BLOOD UREA NITROGEN 7 MG/DL (7-18); CHLORIDE 106 MEQ/L (98-107); GLOMERULAR FILTRATION RATE 80 ML/MIN (>89); POTASSIUM 3.6 MEQ/L (3.5-5.1); SODIUM (NA) 140 MEQ/L (136-145)
[2017-05-23 06:24] LABS: ALKALINE PHOSPHATASE 129 U/L (45-117); TOTAL BILIRUBIN ADULT 0.6 MG/DL (0.2-1.0)
[2017-05-23] MEDS ORDERED: KETOROLAC TROMETHAMINE 30 MG/ML (IVP) VIAL IV PUSH ONE ×2 (06:30→13:00)
[2017-05-23] MEDS ORDERED: cefTRIAXone INJ 1,000 MG in SODIUM CHLORIDE 0.9% INJ 100 ML IV ONE (07:00)
[2017-05-23] MEDS: SODIUM CHLORIDE 0.9% FLUSH 10 ML FLUSH IV FLUSH PRN ×2 (07:21→09:10)
--- NOTE | 2017-05-23 07:51 | PD ---
Physical Exam Date Seen by Provider: May 23, 2017 Data Data Last Documented VS Vital Signs Date Time Temp Pulse Resp B/P Pulse Ox O2 Delivery O2 Flow Rate FiO2 05/23/17 10:13 98.4 69 18 102/70 97 Room Air Orders Complete Blood Count With Diff (05/23/17 05:31) Comprehensive Metabolic Panel (05/23/17 05:31) Lipase (05/23/17 05:31) Prothrombin Time / Inr (Pt) (05/23/17 05:31) Act Partial Throm Time (Ptt) (05/23/17 05:31) Urinalysis - C+S If Indicated (05/23/17 05:31) Iv Access Insert/Monitor (05/23/17 05:31) Ecg Monitoring (05/23/17 05:31) Oximetry (05/23/17 05:31) Sodium Chloride 0.9% Flush (Ns Flush) (05/23/17 05:45) Electrocardiogram (05/23/17 05:31) Ed Urine Pregnancytest Poc (05/23/17 05:31) Gc And Chlamydia Pcr (05/23/17 05:31) Wet Prep Profile (05/23/17 05:31) Chest, Single Ap (05/23/17 ) Lactic Acid Sepsis Protocol (05/23/17 05:31) Troponin I (05/23/17 05:31) Sodium Chlor 0.9% 1000 Ml Inj (Ns 1000 M (05/23/17 05:45) Acetaminophen (Tylenol) (05/23/17 05:45) Urine Culture (05/23/17 05:30) Ketorolac Inj (Toradol Inj) (05/23/17 06:30) Sodium Chlor 0.9% 1000 Ml Inj (Ns 1000 M (05/23/17 07:00) Influenzae A/B Antigen (05/23/17 06:47) Ceftriaxone Inj (Rocephin Inj) (05/23/17 07:00) Ct Abd/Pel W Iv Contrast(Rout) (05/23/17 ) Ct Pulmonary Angiogram (05/23/17 ) Azithromycin (Zithromax) (05/23/17 08:00) Iohexol 350 Inj (Omnipaque 350 Inj) (05/23/17 09:10) Enoxaparin Inj (Lovenox Inj) (05/23/17 10:30) Admit Order (Ed Use Only) (05/23/17 10:47) Labs Laboratory Tests Test 05/23/17 05/23/17 05/23/17 05:30 05:40 06:01 Urine Color YELLOW Urine Turbidity HAZY Urine pH 6.0 Urine Specific [place] 1.019 Urine Protein 30 mg/dL Urine Glucose (UA) NEG mg/dL Urine Ketones NEG mg/dL Urine Occult Blood TRACE Urine Nitrite NEG Urine Bilirubin NEG Urine Urobilinogen LESS THAN 2.0 MG/DL Urine Leukocyte Esterase LARGE Urine RBC 4 /hpf Urine WBC /hpf Urine Squamous Epithelial 4 /hpf Cells Urine Renal Epithelial Cells 1 /hpf Urine Bacteria RARE /hpf Urine Mucus FEW /lpf Microscopic Urinalysis Comment CULTURE INDICATED White Blood Count 11.3 TH/MM3 Red Blood Count 3.91 MIL/MM3 Hemoglobin 9.7 GM/DL Hematocrit 30.6 % Mean Corpuscular Volume 78.2 FL Mean Corpuscular Hemoglobin 24.9 PG Mean Corpuscular Hemoglobin 31.8 % Concent Red Cell Distribution Width 18.8 % Platelet Count 270 TH/MM3 Mean Platelet Volume 9.9 FL Neutrophils (%) (Auto) 86.6 % Lymphocytes (%) (Auto) 5.4 % Monocytes (%) (Auto) 7.2 % Eosinophils (%) (Auto) 0.2 % Basophils (%) (Auto) 0.6 % Neutrophils # (Auto) 9.8 TH/MM3 Lymphocytes # (Auto) 0.6 TH/MM3 Monocytes # (Auto) 0.8 TH/MM3 Eosinophils # (Auto) 0.0 TH/MM3 Basophils # (Auto) 0.1 TH/MM3 CBC Comment DIFF FINAL Differential Comment Prothrombin Time 10.5 SEC Prothromb Time International 1.0 RATIO Ratio Activated Partial 31.7 SEC Thromboplast Time Sodium Level 140 MEQ/L Potassium Level 3.6 MEQ/L Chloride Level 106 MEQ/L Carbon Dioxide Level 23.1 MEQ/L Anion Gap 11 MEQ/L Blood Urea Nitrogen 7 MG/DL Creatinine 0.86 MG/DL Estimat Glomerular Filtration 80 ML/MIN Rate Random Glucose 93 MG/DL Lactic Acid Level 1.4 mmol/L Calcium Level 8.8 MG/DL Total Bilirubin 0.6 MG/DL Aspartate Amino Transf 17 U/L (AST/SGOT) Alanine Aminotransferase 26 U/L (ALT/SGPT) Alkaline Phosphatase 129 U/L Troponin I LESS THAN 0.02 NG/ML Total Protein 8.1 GM/DL Albumin 3.6 GM/DL Lipase 86 U/L Clue Cells (Wet Prep) NONE SEEN Vaginal Trichomonas (Wet Prep) NONE SEEN Vaginal Yeast (Wet Prep) NONE SEEN Chlamydia trachomatis DNA NOT DETECTED (PCR) Neisseria gonorrhoeae DNA NOT DETECTED (PCR) MDM Medical Record Reviewed: Yes Supervised Visit with LOIS: No Narrative Course Patient and asked me by Dr. Dietz at change of shift, patient pending CTA of the chest, CT of the abdomen pelvis, wet prep. Please refer to previous providers chart for full history of present illness. Patient is a 27-year-old female who presents to emergency room with multiple complaints. Patient reports that she has been having abdominal pain for the past few days, reports that she was seen by her electrical and radio aircraft mechanic as her IUD came out , reports that because she had fevers and chills, she was told to come to the emergency room for evaluation. Patient reports diffuse abdominal pain, reports that she has had some vaginal discharge. Pelvic exam was performed by Dr. Dietz. Wet prep negative, Trichomonas negative, yeast negative. G/C pending UA is positive for large leuk esterase, rare bacteria, trace blood, patient was given a dose of Rocephin for treatment of UTI. Urine culture pending. CT of the abdomen and pelvis pending. Patient also complaining of chest pain and shortness of breath. X-ray of the chest with no acute cardiopulmonary abnormalities identified. Vital Signs Date Time Temp Pulse Resp B/P Pulse Ox O2 Delivery O2 Flow Rate FiO2 05/23/17 06:36 100.2 118 18 105/61 98 Room Air 05/23/17 05:19 121 20 118/62 97 Room Air 05/23/17 05:11 Room Air 05/23/17 04:20 102.9 140 20 153/82 98 Room Air Patient remains tachycardic, febrile, CTA pending. WBC 11.3, hemoglobin 9.7, hematocrit 30.6, platelets 270 Sodium 140, chloride 106, potassium 3.6, BUN 7, creatinine 0.86, troponin less than 0.02, lipase 86 Influenza negative Patient was reevaluated, reports that she is not feeling any better. Currently pending CTA of the chest as well as CT of the abdomen and pelvis. Last Impressions Chest X-Ray 05/23/17 0000 Signed Impressions: Service Date/Time: Tuesday, May 23, 2017 05:33 - CONCLUSION: No acute cardiopulmonary abnormality is identified. Hardik Joyce MD CT pulmonary angiogram shows scattered segmental pulmonary emboli within the upper and lower lobe branches bilaterally, plan to start Lovenox and admitted to hospital. CT of abdomen and pelvis shows mild hepatosplenomegaly as well as a 3.4 cm right ovarian cysts Patient with no known history of PE or DVT. case reviewed with FP resident who accepts pt to service under dr. Pinedo Critical Care Narrative Aggregate critical care time was 30 minutes. Time to perform other separately billable procedures was not included in the critical care time. My time did not include minutes spent treating any other patients simultaneously or on activities that did not directly contribute to the patient's treatment. The services I provided to this patient were to treat and/or prevent clinically significant deterioration that could result in: , decompensation, deterioration I provided critical care services requiring my management, as noted below: Chart data review, documentation time, medication orders and management, vital sign assessments/reviewing monitor data, ordering and reviewing lab tests, ordering and interpreting/reviewing x-rays and diagnostic studies, care of the patient and discussion of the patient with the admitting physicians. Diagnosis Primary Impression: Abdominal pain Additional Impressions: Cervicitis Multiple pulmonary emboli Ovarian cyst Admitting Information Admitting Physician Requests: Admit Patient Instructions: General Instructions Theresa Chiu DO May 23, 2017 07:51
[2017-05-23] MEDS ORDERED: AZITHROMYCIN 250 MG TAB PO ONE (08:00)
--- NOTE | 2017-05-23 08:37 | EKG ---
Date Performed: 05/23/2017 Time Performed: 06:42:35 PTAGE: 27 years EKG: SINUS TACHYCARDIA POSSIBLE RIGHT VENTRICULAR CONDUCTION DELAY ST/T-WAVE ABNORMALITY, CONSID ER ANTEROLATERAL ISCHEMIA ABNORMAL ECG PREVIOUS TRACING : 01/21/2016 20.27 Compared to previous tracing, anterolateral T wave inversio n is now present. DOCTOR: Víctor Ritchie Interpretating Date/Time 05/23/2017 08:36:04
[2017-05-23] MEDS ORDERED: IOHEXOL 350 MG/ML 10 ML VIAL (for RAD DIAG) IV ONE (09:10)
--- NOTE | 2017-05-23 09:34 | RADRPT ---
EXAM DATE/TIME: 05/23/2017 08:52 [facility] COMPARISON: No previous studies available for comparison. INDICATIONS : Shortness of breath. IV CONTRAST: 75 cc Omnipaque 350 (iohexol) IV ; Cumulative dose for multiple exams. RADIATION DOSE: 18.34 CTDIvol (mGy) MEDICAL HISTORY : None SURGICAL HISTORY : None. ENCOUNTER: Initial ACUITY: 1 day PAIN SCALE: 0/10 LOCATION: Bilateral chest TECHNIQUE: Volumetric scanning of the chest was performed using a pulmonary embolism protocol MIP images were re constructed. Using automated exposure control and adjustment of the mA and/or kV according to patien t size, radiation dose was kept as low as reasonably achievable to obtain optimal diagnostic quality images. DICOM format image data is available electronically for review and comparison. Follow-up recommendations for incidentally detected pulmonary nodules are based at a minimum on nodul e size and patient risk factors according to Fleischner Society Guidelines.FINDINGS: There are scattered pulmonary emboli within the bilateral upper and lower lobe pulmonary artery branc hes. No nodule or mass is noted. No alveolar or interstitial infiltrate is noted. No pleural effusion is no airs. No mediastinal, hilar or axillary lymphadenopathy is noted. Hepatosplenomegaly is noted. CONCLUSION: 1. Scattered segmental pulmonary emboli within the upper and lower lobe branches bilaterally. 2. Hepatosplenomegaly. Jamin Buenrostro MD on May 23, 2017 at 9:25 Board Certified Radiologist. This report was verified electronically.
[2017-05-23 09:41] LABS: CHLAMYDIA PCR NOT DETECTED (NOT DETECT); NEISSERIA PCR NOT DETECTED (NOT DETECT)
--- NOTE | 2017-05-23 09:46 | RADRPT ---
EXAM DATE/TIME: 05/23/2017 08:52 [facility] COMPARISON: CT ABDOMEN & PELVIS W/O CONTRAST, January 22, 2016, 1:45. INDICATIONS : Pelvic pain today. IV CONTRAST: 75 cc Omnipaque 350 (iohexol) IV ; Cumulative dose for multiple exams. ORAL CONTRAST: No oral contrast ingested. RADIATION DOSE: 28.79 CTDIvol (mGy) MEDICAL HISTORY : None SURGICAL HISTORY : None. ENCOUNTER: Initial ACUITY: 1 day PAIN SCALE: 7/10 LOCATION: Bilateral lower quadrant TECHNIQUE: Volumetric scanning of the abdomen and pelvis was performed. Using automated exposure control and ad justment of the mA and/or kV according to patient size, radiation dose was kept as low as reasonably achievable to obtain optimal diagnostic quality images. DICOM format image data is available electro nically for review and comparison. FINDINGS: Mild hepatomegaly is noted. Uncomplicated colonic diverticulosis is noted. No acute diverticulitis is noted. There is a right ovarian cyst measuring 3.4 cm. No free fluid is noted within the cul-de- sac. The uterus is normal in appearance for the patient's age. No acute obstructive uropathy is not ed. The liver demonstrates no focal mass. The gallbladder is unremarkable. The pancreas is normal. The adrenal glands are normal bilaterally. The abdominal aorta and inferior vena cava are unremark able. No significant lymphadenopathy is noted. The bony structures are unremarkable. Visualized greta ng bases are clear. CONCLUSION: 1. Mild hepatosplenomegaly. 2. A 3.4 cm right ovarian cyst. 3. Uncomplicated colonic diverticulosis. Jamin Buenrostro MD on May 23, 2017 at 9:30 Board Certified Radiologist. This report was verified electronically.
[2017-05-23] MEDS ORDERED: ENOXAPARIN SODIUM 120 MG/0.8 ML SYRINGE SQ ONE (10:30)
--- NOTE | 2017-05-23 11:54 | HHI.HP ---
[facility] Service Family Medicine Primary Care Physician Mary Kate Ferrara MD Admission Diagnosis Pulmonary emboli Diagnoses: International Travel<30 Days: No Contact w/Intl Traveler<30days: No Known Affected Area: No History of Present Illness Chikis Verduzco is a very pleasant 27 year old woman who presents to the ED due to fevers and chest pain. She states last night around midnight she starting to feel feverish, she checked her temperature and it was 103.0F orally. She also had chest pain at that time, she states it was left-sided and radiating to her left upper back. She also reports SOB last night and her CP being pleuritic. She does report a history of mild panic attacks and having symptoms such as these before. Denies h/o anxiety or depression or taking medications for these issues. She also reports LLQ abdominal pain about 5/10 in nature, states the pain is dull in nature, nonradiating, has been present for about two to three days. She states she believes she has had this abdominal pain since her IUD fell out which she states was about 4 days ago however per EMR review her IUD had fallen out prior to an ED visit on 05/12. She endorses vaginal discharge over the past 3 days which she states is yellow and somewhat thin. Denies any bleeding. Denies any pelvic and suprapubic pain recently. She states the last time she had intercourse was with her on 05/10 on her anniversary. She denies ever having gonorrhea or chlamydia or other STIs however does endorse having multiple UTIs in the past. Chikis had presented to the [place] ED on 05/12 after believing her IUD was not in place. Per report, she had had the IUD placed a couple weeks prior to that visit. She had partial expulsion of the IUD in the ED and the IUD was removed. She was afebrile with unremarkable vital signs at that time and sent home. (Alexys Massey MD R1) Review of Systems Constitutional: COMPLAINS OF: Fever, Chills, DENIES: Change in appetite Eyes: DENIES: Blurred vision Respiratory: COMPLAINS OF: Shortness of breath, DENIES: Cough, Wheezing, Sputum production Cardiovascular: COMPLAINS OF: Chest pain, DENIES: Palpitations, Lower Extremity Edema Gastrointestinal: COMPLAINS OF: Abdominal pain, DENIES: Black stools, Bloody stools, Constipation, Diarrhea, Nausea, Vomiting Genitourinary: DENIES: Abnormal vaginal bleeding, Urinary frequency, Hematuria , Dysuria Psychiatric: COMPLAINS OF: Anxiety (Alexys Massey MD R1) Past Family Social History Past Medical History Displaced right distal radius fracture s/p ORIF right distal radius with percutaneous pinning of distal radial ulnar joint by orthopedic surgery on 2016 GERD Iron deficiency anemia Past Surgical History ORIF right distal radius with percutaneous pinning of distal radial ulnar joint 04/10/2017 (Alexys Massey MD R1) Allergies: Coded Allergies: No Known Allergies (Verified , 05/12/17) Family History Mother: hysterectomy unknown reason Father: unknown Social History Lives at home with and two children Tobacco: denies Etoh: social occasions Illicit drug use: denies (Alexys Massey MD R1) Physical Exam Vital Signs Vital Signs Date Time Temp Pulse Resp B/P Pulse Ox O2 Delivery O2 Flow Rate FiO2 05/23/17 10:13 98.4 69 18 102/70 97 Room Air 05/23/17 06:36 100.2 118 18 105/61 98 Room Air 05/23/17 05:19 121 20 118/62 97 Room Air 05/23/17 05:11 Room Air 05/23/17 04:20 102.9 140 20 153/82 98 Room Air Physical Exam GENERAL: Appears in moderate distress and cold, does not appear short of breath NEURO: Alert. Normal speech. manager zone grossly intact. Motor grossly normal. SKIN: Warm and dry. No rashes or erythema. HEAD: Normocephalic. Atraumatic. EYES: PERRL. EOMI. No scleral icterus. No injection or drainage. ENT: No nasal drainage. Moist mucous membranes. No oral ulcers or lesions. NECK: Supple, trachea midline. No JVD. CARDIOVASCULAR: Regular rate and rhythm without murmurs, rubs, or gallops. Peripheral pulses 2+. Capillary refill < 2 seconds. RESPIRATORY: Crackles appreciate primarily lower lung rodriguez bilaterally. No wheezing. No accessory muscle use. GASTROINTESTINAL: Abdomen soft, moderate TTP in LLQ, nondistended, normal BS. No organomegaly or masses appreciated. No rebound tenderness. No guarding. No suprapubic tenderness. MUSCULOSKELETAL: No lower extremity edema. Normal range of motion. BACK: Nontender without obvious deformity. Laboratory Laboratory Tests Test 05/23/17 05/23/17 05/23/17 05:30 05:40 06:01 Urine Color YELLOW Urine Turbidity HAZY Urine pH 6.0 Urine Specific [place] 1.019 Urine Protein 30 Urine Glucose (UA) NEG Urine Ketones NEG Urine Occult Blood TRACE Urine Nitrite NEG Urine Bilirubin NEG Urine Urobilinogen LESS THAN 2.0 Urine Leukocyte Esterase LARGE Urine RBC 4 Urine WBC Urine Squamous Epithelial 4 Cells Urine Renal Epithelial Cells 1 Urine Bacteria RARE Urine Mucus FEW Microscopic Urinalysis Comment CULTURE INDICATED White Blood Count 11.3 Red Blood Count 3.91 Hemoglobin 9.7 Hematocrit 30.6 Mean Corpuscular Volume 78.2 Mean Corpuscular Hemoglobin 24.9 Mean Corpuscular Hemoglobin 31.8 Concent Red Cell Distribution Width 18.8 Platelet Count 270 Mean Platelet Volume 9.9 Neutrophils (%) (Auto) 86.6 Lymphocytes (%) (Auto) 5.4 Monocytes (%) (Auto) 7.2 Eosinophils (%) (Auto) 0.2 Basophils (%) (Auto) 0.6 Neutrophils # (Auto) 9.8 Lymphocytes # (Auto) 0.6 Monocytes # (Auto) 0.8 Eosinophils # (Auto) 0.0 Basophils # (Auto) 0.1 CBC Comment DIFF FINAL Differential Comment Prothrombin Time 10.5 Prothromb Time International 1.0 Ratio Activated Partial 31.7 Thromboplast Time Sodium Level 140 Potassium Level 3.6 Chloride Level 106 Carbon Dioxide Level 23.1 Anion Gap 11 Blood Urea Nitrogen 7 Creatinine 0.86 Estimat Glomerular Filtration 80 Rate Random Glucose 93 Lactic Acid Level 1.4 Calcium Level 8.8 Total Bilirubin 0.6 Aspartate Amino Transf 17 (AST/SGOT) Alanine Aminotransferase 26 (ALT/SGPT) Alkaline Phosphatase 129 Troponin I LESS THAN 0.02 Total Protein 8.1 Albumin 3.6 Lipase 86 Clue Cells (Wet Prep) NONE SEEN Vaginal Trichomonas (Wet Prep) NONE SEEN Vaginal Yeast (Wet Prep) NONE SEEN Chlamydia trachomatis DNA NOT DETECTED (PCR) Neisseria gonorrhoeae DNA NOT DETECTED (PCR) Date/Time Procedure Status Source Growth 05/23/17 07:05 Influenza Types A,B Antigen ([facility]) - Final Complete Nasal Aspirate NEGATIVE FOR FLU A AND B ANTIGEN.... 05/23/17 05:30 Urine Culture Received Urine Random Urine Pending (Kandavanam,Alexys MD R1) Result Diagram: 05/23/1740 05/23/1740 Septic Shock Reassessment Heart: Regular rate and rhythm Lungs: Crackles Skin: Warm, Dry Peripheral Pulses: Bounding Right Radial Bounding Left Radial Bounding Right Dorsalis Pedis Bounding Left Dorsalis Pedis Bounding Right Posterior Tibial Bounding Left Posterior Tibial Capillary Refill: <2 seconds (Alexys Massey MD R1) Assessment and Plan Assessment and Plan 27 year old female presents with fever, chest pain, SOB, and LLQ abdominal pain. Patient will be admitted and managed for the following: Code Status Full code Discussed Condition With Dr. Bethanie Hawkins (Alexys Massey MD R1) Attending Attestation THIS CASE WAS DISCUSSED WITH THE RESIDENT PHYSICIANS. I HAVE REVIEWED THE RECORD AND AGREE WITH THE ABOVE NOTE AND PLAN OF CARE WAS DISCUSSED. I HAVE AUTHORIZED THE ORDER FOR ADMISSION TO AN IN-PATIENT STATUS. (Ruddy Kovacs MD) Problem List: (1) Sepsis Status: Acute Plan: Patient meets sepsis criteria source suspected to be PID vs septic emboli VS WNL s/p 2L NS boluses in ED, continue to monitor q4h Lactic acid 1.4 Obtain blood culture Start vancomycin dosing per pharmacy consult in the case of septic emboli until ruled out Further plan as below (2) PID (acute pelvic inflammatory disease) Status: Acute Plan: - Suspected PID although diagnosis remains in question - White discharge noted on ED pelvic exam, no CMT or adnexal tenderness bilaterally - Urine test negative - Wet prep negative - GC&chlamydia negative - UA large LE, rare bacteria, culture pending - CT abd/pelvis showing mild HSM, 3.4 cm right ovarian cyst, uncomplicated colonic diverticulosis Plan: - Start cefoxitin 2gm IV q6h and doxycycline 100 mg po q12h for PID coverage - Obtain blood culture - MIVF NS at 150 cc/hr - Toradol 15 mg IV q6h prn pain (3) Pulmonary emboli Status: Acute Plan: Found to have scattered segmental pulmonary emboli in upper and lower lobe branches bilaterally Given Lovenox 1 mg/kg x1 in the ED Continue therapeutic Lovenox 1 mg/kg/dose subq q12h Obtain doppler US lower extremities and echo (4) Chest pain Status: Acute Plan: Likely associated with pulmonary emboli EKG showing sinus tachycardia, T wave inversions leads V2-V4, right ventricular conduction delay may be due to PE Initial troponin < 0.02 Rule out ACS will trend troponin and EKG x2 q6h (5) Anemia Status: Chronic Plan: Patient has a h/o iron deficiency anemia Hgb 9.7 on admission, microcytic Continue to monitor (6) Nutrition, metabolism, and development symptoms Status: Acute Plan: Fluids: NS at 150 cc/hr Electrolytes: WNL, continue to monitor Nutrition: regular diet DVT ppx: therapeutic lovenox as above GI ppx: Protonix 40 mg po daily (Alexys Massey MD R1) Physician Certification 2 Midnight Certification Type: Admission for Inpatient Services Order for Inpatient Services The services are ordered in accordance with Medicare regulations or non- Medicare payer requirements, as applicable. In the case of services not specified as inpatient-only, they are appropriately provided as inpatient services in accordance with the 2-midnight benchmark. Estimated LOS (days): 2 days is the estimated time the patient will need to remain in the hospital, assuming treatment plan goals are met and no additional complications. Post-Hospital Plan: Home (Alexys Massey MD R1) Problem Qualifiers (1) Pulmonary emboli: Qualified Code: I26.99 - Other acute pulmonary embolism without acute cor pulmonale Alexys Massey MD R1 May 23, 2017 11:54 Ruddy Kovacs MD May 24, 2017 15:15
[2017-05-23] MEDS ORDERED: SODIUM CHLORIDE 0.9% FLUSH 10 ML FLUSH IV FLUSH PRN (12:00)
[2017-05-23] MEDS ORDERED: NALOXONE HCL 0.4 MG/ML AMP IV PRN (12:00)
[2017-05-23] MEDS: SODIUM CHLORIDE 0.9% FLUSH 10 ML FLUSH IV FLUSH SCH ×2 (12:47→20:20)
[2017-05-23] MEDS: SODIUM CHLOR 0.9% 1000 ML INJ 1,000 ML IV SCH ×2 (12:47→18:40)
[2017-05-23] MEDS: PANTOPRAZOLE SOD 40 MG DELAYED RELEASE TAB PO SCH (12:47)
[2017-05-23] MEDS: ACETAMINOPHEN 325 MG TAB PO PRN ×2 (12:48→17:08)
[2017-05-23] MEDS ORDERED: ONDANSETRON HCL 4 MG/2 ML VIAL IV PUSH ONE (13:00)
[2017-05-23] MEDS: DOXYCYCLINE HYCLATE 100 MG CAP PO SCH (15:57)
[2017-05-23] MEDS: ceFOXitin INJ 2 GM in SODIUM CHLORIDE 0.9% INJ 100 ML IV SCH (16:01)
[2017-05-23] MEDS ORDERED: Vancomycin Consult Pharmacy 1 EA OTHER SCH (17:45)
[2017-05-23] MEDS ORDERED: VANCOMYCIN INJ 1,000 MG in SODIUM CHLOR 0.9% 250 ML INJ 250 ML IV SCH (17:45)
[2017-05-23] MEDS: VANCOMYCIN INJ 1,750 MG in SODIUM CHLORID 0.9% 500 ML INJ 500 ML IV SCH (21:00)
[2017-05-23] MEDS: ACETAMINOPHEN 500 MG CPLT PO PRN (22:26)
[2017-05-23] MEDS: LORazepam 1 MG TAB PO PRN (22:26)
[2017-05-23] MEDS: PROMETHAZINE HCL 25 MG TAB PO PRN (22:31)
[2017-05-23] MEDS: KETOROLAC TROMETHAMINE 30 MG/ML (IVP) VIAL IV PUSH PRN (23:05)
[2017-05-24] VITALS: BP 123/74; PULSE 109; RESP 20; TEMP 100.1; O2SAT 100
[2017-05-24] MEDS: ENOXAPARIN SODIUM 120 MG/0.8 ML SYRINGE SQ SCH ×3 (00:08→22:47)
[2017-05-24 00:12] LABS: AUTOMATED NEUTROPHIL # 5.9 TH/MM3 (1.8-7.7); BASOPHIL % 0.3 % (0.0-2.0); EOSINOPHIL % 0.1 % (0.0-4.0); HEMATOCRIT 24.4 % (35.0-46.0); HEMO FLAGS DIFF FINAL; LYMPH % 16.1 % (9.0-44.0); LYMPHOCYTE # 1.4 TH/MM3 (1.0-4.8); MEAN CELL VOLUME 77.4 FL (80.0-100.0); MEAN CORPUSCULAR HEMOGLOBIN 25.3 PG (27.0-34.0); MEAN CORPUSCULAR HGB CONC 32.7 % (32.0-36.0); MONO % 14.1 % (0.0-8.0); NEUT % 69.4 % (16.0-70.0); PLATELET COUNT 214 TH/MM3 (150-450); RED BLOOD COUNT 3.15 MIL/MM3 (4.00-5.30); WHITE BLOOD COUNT 8.6 TH/MM3 (4.0-11.0)
[2017-05-24 00:42] LABS: ANION GAP 10 MEQ/L (5-15); BICARBONATE 19.8 MEQ/L (21.0-32.0); BLOOD UREA NITROGEN 7 MG/DL (7-18); CHLORIDE 110 MEQ/L (98-107); GLOMERULAR FILTRATION RATE 90 ML/MIN (>89); POTASSIUM 3.6 MEQ/L (3.5-5.1); SODIUM (NA) 140 MEQ/L (136-145)
[2017-05-24] MEDS: ceFOXitin INJ 2 GM in SODIUM CHLORIDE 0.9% INJ 100 ML IV SCH ×5 (01:13→22:23)
[2017-05-24] MEDS: SODIUM CHLOR 0.9% 1000 ML INJ 1,000 ML IV SCH ×4 (01:16→21:04)
--- NOTE | 2017-05-24 03:29 | HHI.FPPN ---
Addendum to progress note ADDENDUM Reason for addendum: Additonal documentation Additional information Patient evaluated at ~2020 due to tachycardia and fever on recent vital assessment (after discussion with day team): Patient reports that she is doing well and that she felt better than earlier today. Patient does not report new complaints, but states that she feels "hot." Objective: Gen: No acute distress Respiratory: Rate normal, no visible distress Cardiac: Normal peripheral perfusion; HR ~100 A/P: Sepsis Impression: Febrile with tachycardia and leukocytosis; currently on Vancomycin, Doxycycline, and Cefoxitin. s/p NS bolus x2 L; on 150ml/hr. Urine output not in EMR -Patient instructed to contact nursing staff with worsening symptoms; currently patient appears clinically stable/improved -Will give an additional NS bolus x1 L since tachycardic with suspected sepsis -Will repeat lactic acid -Will repeat blood culture (ordered previously but not yet drawn per EMR) -Will repeat CBC, BMP Tayo Brooks MD R2 May 24, 2017 03:29
[2017-05-24 04:00] VITALS: BP 143/68; PULSE 92; RESP 20; TEMP 98.5; O2SAT 99
[2017-05-24] MEDS: DOXYCYCLINE HYCLATE 100 MG CAP PO SCH ×2 (04:26→15:32)
[2017-05-24] MEDS: VANCOMYCIN INJ 1,750 MG in SODIUM CHLORID 0.9% 500 ML INJ 500 ML IV SCH ×3 (05:41→21:04)
[2017-05-24] MEDS: SODIUM CHLORIDE 0.9% FLUSH 10 ML FLUSH IV FLUSH SCH ×2 (07:34→21:00)
[2017-05-24] MEDS: PROMETHAZINE HCL 25 MG TAB PO PRN (07:34)
[2017-05-24] MEDS: PANTOPRAZOLE SOD 40 MG DELAYED RELEASE TAB PO SCH (07:34)
[2017-05-24] MEDS: ACETAMINOPHEN 500 MG CPLT PO PRN ×2 (07:34→15:33)
[2017-05-24 08:00] VITALS: BP 164/76; PULSE 114; RESP 17; TEMP 102.4; O2SAT 99
--- NOTE | 2017-05-24 08:49 | HHI.FPPN ---
Subjective Remarks Patient evaluated overnight due to fever and tachycardia, given additional 1L NS bolus. Patient continues to have fevers this morning up to 102.4F and tachycardic up to 114 bpm. She states overall she feels only slightly improved since admission since she continues to feel feverish; still endorsing pleuritic chest pain and some shortness of breath. She states her abdominal pain has lessened. Denies pelvic pain or significant vaginal discharge. (Alexys Massey MD R1) Objective Vitals Vital Signs Date Time Temp Pulse Resp B/P Pulse Ox O2 Delivery O2 Flow Rate FiO2 05/24/17 08:00 102.4 114 17 164/76 99 05/24/17 04:00 98.5 92 20 143/68 99 05/24/17 00:00 100.1 109 20 123/74 100 05/23/17 22:12 117 05/23/17 20:00 100.2 112 20 108/56 98 05/23/17 18:21 101.3 05/23/17 17:00 103.5 05/23/17 16:00 100.3 115 18 118/81 100 05/23/17 14:20 97 05/23/17 14:08 68 108/75 05/23/17 10:13 98.4 69 18 102/70 97 Room Air I/O 05/23/17 05/23/17 05/23/17 05/24/17 05/24/17 05/24/17 07:00 15:00 23:00 07:00 15:00 23:00 Intake Total 240 ml 2347 ml Output Total 0 ml Balance 240 ml 2347 ml Intake Oral 240 ml 120 ml IV Total 2227 ml Output Urine Total 0 ml # Voids 2 (Alexys Massey MD R1) Result Diagram: 05/23/17 2340 05/23/17 2340 Objective Remarks GENERAL: Appears somewhat uncomfortable, lying flat in bed, no increased work of breathing NEURO: Alert. Normal speech. 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 Motor grossly normal. SKIN: Warm and dry. HEAD: Normocephalic. Atraumatic. EYES: EOMI. No injection or drainage. ENT: Moist mucous membranes. No oral ulcers or lesions. NECK: Supple, trachea midline. No JVD. CARDIOVASCULAR: Regular rate and rhythm without murmurs, rubs, or gallops. Peripheral pulses 2+. RESPIRATORY: Clear to auscultation b/l without w/r/r. No accessory muscle use. GASTROINTESTINAL: Abdomen soft, LLQ is nontender, obese, normal BS. No rebound tenderness. No guarding. Suprapubic tenderness present. MUSCULOSKELETAL: No lower extremity edema. Normal range of motion. BACK: Nontender without obvious deformity. (Alexys Massey MD R1) A/P Assessment and Plan 27 year old female presented with fever, chest pain, SOB, and LLQ abdominal pain. Patient found to have scattered segmental pulmonary emboli on CTPA within the upper and lower lobe branches bilaterally and meeting sepsis criteria on admission suspected at this time due to PID vs septic emboli. Discharge Planning Unclear at this time. Pending further studies and clinical improvement. ( Alexys Massey MD R1) Attending Attestation Patient examined and case discussed with resident physicians I have read the above note and agree with the assessment/plan as discussed with me I was involved in all medical decision making for this patient Ruddy Kovacs M.D. (Ruddy Kovacs MD) Problem List: (1) Sepsis Status: Acute Plan: Patient meets sepsis criteria source suspected to be PID vs septic emboli Monitor vital signs q4h Lactic acid 1.4, repeat 0.7 Blood cultures pending Continue vancomycin dosing per pharmacy consult in the case of septic emboli until ruled out Continue MIVF with NS Further plan as below (2) PID (acute pelvic inflammatory disease) Status: Acute Plan: - Suspected PID although diagnosis remains in question - White discharge noted on ED pelvic exam, no CMT or adnexal tenderness bilaterally - Urine test negative - Wet prep negative - GC&chlamydia negative - UA large LE, rare bacteria, urine culture pending - CT abd/pelvis showing mild HSM, 3.4 cm right ovarian cyst, uncomplicated colonic diverticulosis Plan: - Continue cefoxitin 2gm IV q6h and doxycycline 100 mg po q12h for PID coverage - Follow blood and urine culture - MIVF NS at 150 cc/hr - Toradol 15 mg IV q6h prn pain (3) Pulmonary emboli Status: Acute Plan: Found to have scattered segmental pulmonary emboli in upper and lower lobe branches bilaterally Given Lovenox 1 mg/kg x1 in the ED Continue therapeutic Lovenox 1 mg/kg/dose subq q12h Obtain doppler US lower extremities and echo Patient considering options for oral anticoagulation Ipratropium nebs q6h Incentive spirometer to bedside (4) Chest pain Status: Acute Plan: Likely associated with pulmonary emboli EKG showing sinus tachycardia, T wave inversions leads V2-V4, right ventricular conduction delay may be due to PE Troponin < 0.02 x2 Repeat EKG showing sinus tachycardia, ~1mm ST depressions in V3-V4 unchanged from prior EKG (5) Anemia Status: Chronic Plan: Patient has a h/o iron deficiency anemia Hgb 9.7 on admission, microcytic Continue to monitor (6) Nutrition, metabolism, and development symptoms Status: Acute Plan: Fluids: NS at 150 cc/hr Electrolytes: Continue to monitor and replete as necessary Nutrition: regular diet DVT ppx: therapeutic lovenox as above GI ppx: Protonix 40 mg po daily (Alexys Massey MD R1) Problem Qualifiers (1) Pulmonary emboli: Qualified Code: I26.99 - Other acute pulmonary embolism without acute cor pulmonale Alexys Massey MD R1 May 24, 2017 08:49 Ruddy Kovacs MD May 24, 2017 15:16
[2017-05-24] MEDS: RESP: IPRATROPIUM 0.5 MG/2.5 ML NEB NEB SCH ×4 (09:00→23:18)
--- NOTE | 2017-05-24 09:28 | RADRPT ---
EXAM DATE/TIME: 05/24/2017 08:29 [facility] COMPARISON: No previous studies available for comparison. INDICATIONS : Pulmonary embolism. MEDICAL HISTORY : Gastroesophageal reflux disease. . Anemia. Pulmonary embolism. SURGICAL HISTORY : ORIF right distal radius with percutaneous pinning. ENCOUNTER: Initial ACUITY: 3 days PAIN SCORE: 3/10 LOCATION: Bilateral legs. TECHNIQUE: Venous ultrasound of the left and right leg was performed from the inguinal ligament to the proximal calf. Real-time, color Doppler and spectral tracing, compression and augmentation techniques were us ed. FINDINGS: RIGHT LEG: There is normal compressibility of the deep venous system from the inguinal region to the proximal ca lf. No echogenic clot is seen in the lumen of the common femoral, femoral, popliteal, and posterior tibial veins. There is a normal response of the venous system to proximal and distal augmentation an d respiration. LEFT LEG: There is normal compressibility of the deep venous system from the inguinal region to the proximal ca lf. No echogenic clot is seen in the lumen of the common femoral, femoral, popliteal, and posterior tibial veins. There is a normal response of the venous system to proximal and distal augmentation an d respiration. CONCLUSION: No evidence of deep venous thrombosis within the lower extremities. Jamin Buenrostro MD on May 24, 2017 at 9:25 Board Certified Radiologist. This report was verified electronically.
[2017-05-24 11:47] LABS: AUTOMATED NEUTROPHIL # 5.6 TH/MM3 (1.8-7.7); BASOPHIL % 0.4 % (0.0-2.0); EOSINOPHIL % 0.3 % (0.0-4.0); HEMATOCRIT 23.3 % (35.0-46.0); HEMO FLAGS DIFF FINAL; LYMPH % 17.4 % (9.0-44.0); LYMPHOCYTE # 1.4 TH/MM3 (1.0-4.8); MEAN CELL VOLUME 78.1 FL (80.0-100.0); MEAN CORPUSCULAR HEMOGLOBIN 25.6 PG (27.0-34.0); MEAN CORPUSCULAR HGB CONC 32.8 % (32.0-36.0); MONO % 10.6 % (0.0-8.0); NEUT % 71.3 % (16.0-70.0); PLATELET COUNT 229 TH/MM3 (150-450); RED BLOOD COUNT 2.98 MIL/MM3 (4.00-5.30); RED CELL DISTRIBUTION WIDTH 18.8 % (11.6-17.2); WHITE BLOOD COUNT 7.9 TH/MM3 (4.0-11.0)
[2017-05-24 12:00] VITALS: BP 170/89; PULSE 95; RESP 18; TEMP 99.6; O2SAT 100
[2017-05-24] MEDS: KETOROLAC TROMETHAMINE 30 MG/ML (IVP) VIAL IV PUSH PRN ×2 (12:04→20:59)
--- NOTE | 2017-05-24 12:10 | EKG ---
Date Performed: 05/23/2017 Time Performed: 20:30:47 PTAGE: 27 years EKG: SINUS TACHYCARDIA MINIMAL VOLTAGE CRITERIA FOR LVH, CONSIDER NORMAL VARIANT ST DEVIATION AN D MODERATE T-WAVE ABNORMALITY, CONSIDER ANTERIOR ISCHEMIA ABNORMAL ECG PREVIOUS TRACING : 05/23/2017 06.42 Compared to prior tracing no significant change DOCTOR: Mina Rodriguez Interpretating Date/Time 05/24/2017 12:07:45
[2017-05-24 12:15] LABS: ANION GAP 8 MEQ/L (5-15); AST (GOT) 11 U/L (15-37); BICARBONATE 23.2 MEQ/L (21.0-32.0); BLOOD UREA NITROGEN 4 MG/DL (7-18); CHLORIDE 111 MEQ/L (98-107); GLOMERULAR FILTRATION RATE 80 ML/MIN (>89); POTASSIUM 3.4 MEQ/L (3.5-5.1); SODIUM (NA) 142 MEQ/L (136-145)
[2017-05-24 12:30] LABS: ALKALINE PHOSPHATASE 102 U/L (45-117); ALT (GPT) 23 U/L (10-53); TOTAL BILIRUBIN ADULT 0.3 MG/DL (0.2-1.0)
--- NOTE | 2017-05-24 15:14 | HHI.FPPN ---
Subjective Remarks Patient continues to have some shortness of breath with some chest discomfort this morning. She states that it has not significantly changed since her admission. She also does endorse some lower right sided abdominal discomfort and suprapubic pressure. She also has had intermittent fevers overnight with associated chills. She denies palpitations, denies nausea or vomiting, denies melena or hematochezia, denies constipation. In summary this is a 27-year-old woman who presents to the emergency department with chest pain and fevers. She was recently seen at the emergency department for her IUD falling out, at that visit her IUD was removed and she was instructed to follow-up with her physician if she noticed fevers or chills. Last night she noticed a sensation of feeling feverish with some chills and checked her temperature and it was 103F. At the time she also noted some left- sided chest pain radiating to her left upper back associated with shortness of breath. She describes her chest pain is sharp/pleuritic in nature that is not worse with activity or improved by rest. She also endorses some increased vaginal discharge since her IUD has fallen out. She denies any vaginal pain, denies any dysuria or hematuria Objective Vitals Vital Signs Date Time Temp Pulse Resp B/P Pulse Ox O2 Delivery O2 Flow Rate FiO2 05/24/17 12:00 99.6 95 18 170/89 100 05/24/17 08:00 102.4 114 17 164/76 99 05/24/17 04:00 98.5 92 20 143/68 99 05/24/17 00:00 100.1 109 20 123/74 100 05/23/17 22:12 117 05/23/17 20:00 100.2 112 20 108/56 98 05/23/17 18:21 101.3 05/23/17 17:00 103.5 05/23/17 16:00 100.3 115 18 118/81 100 I/O 05/23/17 05/23/17 05/23/17 05/24/17 05/24/17 05/24/17 07:00 15:00 23:00 07:00 15:00 23:00 Intake Total 240 ml 2347 ml 440 ml Output Total 0 ml Balance 240 ml 2347 ml 440 ml Intake Oral 240 ml 120 ml 440 ml IV Total 2227 ml Output Urine Total 0 ml # Voids 2 4 # Bowel Movements 0 Result Diagram: 05/24/17 1120 05/24/17 1120 Imaging Last 48 hours Impressions Lower Extremity Ultrasound 05/24/17 0000 Signed Impressions: Service Date/Time: Wednesday, May 24, 2017 08:29 - CONCLUSION: No evidence of deep venous thrombosis within the lower extremities. Jamin Buenrostro MD Chest X-Ray 05/23/17 0000 Signed Impressions: Service Date/Time: Tuesday, May 23, 2017 05:33 - CONCLUSION: No acute cardiopulmonary abnormality is identified. Hardik Joyce MD CT Angiography 05/23/17 0000 Signed Impressions: Service Date/Time: Tuesday, May 23, 2017 08:52 - CONCLUSION: 1. Scattered segmental pulmonary emboli within the upper and lower lobe branches bilaterally. 2. Hepatosplenomegaly. Jamin Buenrostro MD Abdomen/Pelvis CT 05/23/17 0000 Signed Impressions: Service Date/Time: Tuesday, May 23, 2017 08:52 - CONCLUSION: 1. Mild hepatosplenomegaly. 2. A 3.4 cm right ovarian cyst. 3. Uncomplicated colonic diverticulosis. Jamin Buenrostro MD Objective Remarks GENERAL: Obese female lying in bed, mildly uncomfortable SKIN: Warm and dry. HEAD: Normocephalic. Atraumatic. NECK: Supple, trachea midline. No JVD. CARDIOVASCULAR: Regular rate and rhythm without murmurs, rubs, or gallops. Peripheral pulses 2+. RESPIRATORY: Clear to auscultation b/l without w/r/r. No accessory muscle use. GASTROINTESTINAL: Abdomen soft, LLQ is nontender, right lower quadrant is moderately tender without rebound or guarding. Obese, normal BS. MUSCULOSKELETAL: No lower extremity edema. Normal range of motion. Right upper extremity is in a long-arm cast. BACK: Nontender without obvious deformity. A/P Assessment and Plan 27-year-old female presenting with fevers/chills and chest pain found to have PE on exam and suspected PID Discharge Planning Unclear at this time. Pending further studies and clinical improvement. Problem List: (1) Pulmonary emboli Status: Acute Plan: CT angiography positive for scattered segmental pulmonary emboli in the upper and lower lobe branches bilaterally Currently receiving Lovenox 1 mg/kilogram - Discussed with patient transition to either warfarin or novel anticoagulant, she is deciding what she would like to do - Plan to transition to warfarin or novel anticoagulant tomorrow 2-D echocardiogram ordered and pending Doppler ultrasound of upper extremities ordered today - Doppler ultrasound of lower extremities negative for DVT Ipratropium nebs q6h Incentive spirometer to bedside (2) Sepsis Status: Acute Plan: Patient meets sepsis criteria source suspected to be PID vs septic emboli Monitor vital signs q4h Lactic acid 1.4, repeat 0.7 Blood cultures pending Continue vancomycin dosing per pharmacy consult in the case of septic emboli until ruled out Continue MIVF with NS (3) PID (acute pelvic inflammatory disease) Status: Acute Plan: Possible PID given the fact that patient has increased vaginal discharge with recent expulsion of her IUD - White discharge noted on ED pelvic exam, no CMT or adnexal tenderness bilaterally - Urine test negative - Wet prep negative - GC&chlamydia negative - UA large LE, rare bacteria, urine culture pending - CT abd/pelvis showing mild HSM, 3.4 cm right ovarian cyst, uncomplicated colonic diverticulosis Plan: - Continue cefoxitin 2gm IV q6h and doxycycline 100 mg po q12h for PID coverage - Follow blood and urine culture - MIVF NS at 150 cc/hr - Toradol 15 mg IV q6h prn pain (4) Chest pain Status: Acute Plan: Likely associated with pulmonary emboli EKG showing sinus tachycardia, T wave inversions leads V2-V4, right ventricular conduction delay may be due to PE Troponin < 0.02 x2 Repeat EKG showing sinus tachycardia, ~1mm ST depressions in V3-V4 unchanged from prior EKG (5) Anemia Status: Chronic Plan: Patient has a h/o iron deficiency anemia Hgb 9.7 trending down to 7.6, continue to monitor and transfuse as needed (6) Nutrition, metabolism, and development symptoms Status: Acute Plan: Fluids: NS at 150 cc/hr Electrolytes: Continue to monitor and replete as necessary Nutrition: regular diet DVT ppx: therapeutic lovenox as above GI ppx: Protonix 40 mg po daily Problem Qualifiers (1) Pulmonary emboli: Qualified Code: I26.99 - Other acute pulmonary embolism without acute cor pulmonale Ruddy Kovacs MD May 24, 2017 15:14
[2017-05-24 16:00] VITALS: BP 137/75; PULSE 103; RESP 17; TEMP 100.3; O2SAT 99
--- NOTE | 2017-05-24 16:42 | RADRPT ---
EXAM DATE/TIME: 05/24/2017 15:37 [facility] COMPARISON: No previous studies available for comparison. INDICATIONS : Bilateral arm swelling. MEDICAL HISTORY : Gastroesophageal reflux disease. Dyspnea. Anxiety. Abdominal pain. Pulmonary emboli. Sepsis. PID. A nemia. Diverticulosis. SURGICAL HISTORY : ORIF right distal radius with pinning. ENCOUNTER: Initial ACUITY: 1 day PAIN SCORE: 0/10 LOCATION: Bilateral arms. FINDINGS: RIGHT UPPER EXTREMITY: There is extensive casting of the right arm which limits evaluation. The right jugular, subclavian an d axillary vein as well as the visualized portions of right brachial vein and basilic vein are patent and unremarkable. LEFT UPPER EXTREMITY: There is spontaneous flow documented in the brachial, basilic, cephalic, axillary, and subclavian vei ns. The vessels are compressible and augmentation response is documented. No filling defects are se en. The flow is phasic with respiration. Direction of flow in the jugular vein is caudal. CONCLUSION: Limited evaluation of the right arm. No evidence of DVT Hardik Portillo MD on May 24, 2017 at 16:39 Board Certified Radiologist. This report was verified electronically.
[2017-05-24 20:00] VITALS: BP 134/79; PULSE 87; RESP 20; TEMP 100; O2SAT 100
[2017-05-24] MEDS ORDERED: PHARMACY ORDERED LAB ONE (20:45)
[2017-05-24] MEDS ORDERED: GABAPENTIN 300 MG CAP PO ONE (22:45)
[2017-05-24] MEDS: LORazepam 1 MG TAB PO PRN (22:47)
[2017-05-25] VITALS (9 sets, daily range): BP systolic 108–176; BP diastolic 64–111; PULSE 65–96; RESP 16–20; TEMP 96.7–99; O2SAT 96–100
[2017-05-25] MEDS: DOXYCYCLINE HYCLATE 100 MG CAP PO SCH ×2 (02:40→15:16)
[2017-05-25] MEDS: ceFOXitin INJ 2 GM in SODIUM CHLORIDE 0.9% INJ 100 ML IV SCH ×2 (02:41→08:02)
[2017-05-25] MEDS: SODIUM CHLOR 0.9% 1000 ML INJ 1,000 ML IV SCH ×3 (02:41→17:32)
[2017-05-25] MEDS: RESP: IPRATROPIUM 0.5 MG/2.5 ML NEB NEB SCH ×2 (04:00→09:21)
[2017-05-25] MEDS ORDERED: PHARMACY ORDERED LAB ONE (04:45)
[2017-05-25] MEDS: VANCOMYCIN INJ 1,750 MG in SODIUM CHLORID 0.9% 500 ML INJ 500 ML IV SCH (05:12)
[2017-05-25 06:32] LABS: BICARBONATE 20.3 MEQ/L (21.0-32.0); POTASSIUM 3.4 MEQ/L (3.5-5.1)
[2017-05-25 06:33] LABS: VANCOMYCIN TROUGH 22.9 MCG/ML (5.0-10.0)
[2017-05-25 06:48] LABS: AUTOMATED NEUTROPHIL # 3.8 TH/MM3 (1.8-7.7); BASOPHIL % 0.5 % (0.0-2.0); EOSINOPHIL # 0.1 TH/MM3 (0-0.4); EOSINOPHIL % 1.2 % (0.0-4.0); LYMPH % 26.7 % (9.0-44.0); LYMPHOCYTE # 1.6 TH/MM3 (1.0-4.8); MEAN CELL VOLUME 78.3 FL (80.0-100.0); MEAN CORPUSCULAR HEMOGLOBIN 25.4 PG (27.0-34.0); MEAN CORPUSCULAR HGB CONC 32.4 % (32.0-36.0); MONO % 9.7 % (0.0-8.0); NEUT % 61.9 % (16.0-70.0); PLATELET COUNT 190 TH/MM3 (150-450); RED BLOOD COUNT 2.69 MIL/MM3 (4.00-5.30); RED CELL DISTRIBUTION WIDTH 18.9 % (11.6-17.2); WHITE BLOOD COUNT 6.1 TH/MM3 (4.0-11.0)
[2017-05-25 06:49] LABS: HEMO FLAGS DIFF FINAL
[2017-05-25 06:52] LABS: HEMATOCRIT 21.1 % (35.0-46.0)
[2017-05-25] MEDS ORDERED: SODIUM CHLOR 0.9% 250 ML INJ 250 ML IV ONE (07:30)
[2017-05-25] MEDS ORDERED: POTASSIUM CHLORIDE 10 MEQ CONTROLLED RELEASE TAB PO ONE (08:00)
[2017-05-25] MEDS: ACETAMINOPHEN 500 MG CPLT PO PRN ×2 (08:02→19:39)
[2017-05-25] MEDS: SODIUM CHLORIDE 0.9% FLUSH 10 ML FLUSH IV FLUSH SCH ×2 (08:02→21:00)
[2017-05-25] MEDS: PANTOPRAZOLE SOD 40 MG DELAYED RELEASE TAB PO SCH (08:02)
[2017-05-25] MEDS: KETOROLAC TROMETHAMINE 30 MG/ML (IVP) VIAL IV PUSH PRN ×2 (09:09→15:15)
--- NOTE | 2017-05-25 11:16 | HHI.FPPN ---
Subjective Remarks No acute events overnight. Vitals are within normal limits. Afebrile Pt lying in bed and watching tv. Paged early this AM for Hb 6.8, informed pt that we will transfuse 1 unit of blood. Complains of abdominal pain around heparin injection site. Denies fevers, CP, SOB, N/V, and swelling in extremities. (Alysha Hawkins MD R1) Objective Vitals Vital Signs Date Time Temp Pulse Resp B/P Pulse Ox O2 Delivery O2 Flow Rate FiO2 05/25/17 08:00 97.7 79 18 159/95 97 05/25/17 04:00 99.0 96 20 135/85 96 05/25/17 00:00 98.8 87 20 108/64 98 05/24/17 20:00 100.0 87 20 134/79 100 05/24/17 16:00 100.3 103 17 137/75 99 05/24/17 12:00 99.6 95 18 170/89 100 I/O 05/24/17 05/24/17 05/24/17 05/25/17 05/25/17 05/25/17 07:00 15:00 23:00 07:00 15:00 23:00 Intake Total 2347 ml 440 ml 690 ml 1390 ml Output Total 0 ml Balance 2347 ml 440 ml 690 ml 1390 ml Intake Oral 120 ml 440 ml 240 ml 240 ml IV Total 2227 ml 450 ml 1150 ml Output Urine Total 0 ml # Voids 4 6 3 # Bowel Movements 0 4 (Alysha Hawkins MD R1) Result Diagram: 05/25/17 0500 05/25/17 0500 Imaging Last Impressions Upper Extremity Ultrasound 05/24/17 0000 Signed Impressions: Service Date/Time: Wednesday, May 24, 2017 15:37 - CONCLUSION: Limited evaluation of the right arm. No evidence of DVT Hardik Portillo MD Lower Extremity Ultrasound 05/24/17 0000 Signed Impressions: Service Date/Time: Wednesday, May 24, 2017 08:29 - CONCLUSION: No evidence of deep venous thrombosis within the lower extremities. Jamin Buenrostro MD Chest X-Ray 05/23/17 0000 Signed Impressions: Service Date/Time: Tuesday, May 23, 2017 05:33 - CONCLUSION: No acute cardiopulmonary abnormality is identified. Hardik Joyce MD CT Angiography 05/23/17 0000 Signed Impressions: Service Date/Time: Tuesday, May 23, 2017 08:52 - CONCLUSION: 1. Scattered segmental pulmonary emboli within the upper and lower lobe branches bilaterally. 2. Hepatosplenomegaly. Jamin Buenrostro MD Abdomen/Pelvis CT 05/23/17 0000 Signed Impressions: Service Date/Time: Tuesday, May 23, 2017 08:52 - CONCLUSION: 1. Mild hepatosplenomegaly. 2. A 3.4 cm right ovarian cyst. 3. Uncomplicated colonic diverticulosis. Jamin Buenrostro MD Objective Remarks GENERAL: Obese female lying in bed, comfortable, watching TV CARDIOVASCULAR: Regular rate and rhythm without murmurs, rubs, or gallops. Peripheral pulses 2+. RESPIRATORY: Clear to auscultation b/l without w/r/r. No accessory muscle use. GASTROINTESTINAL: Abdomen soft, tenderness upon palpation around heparin injection site, +BS, ND MUSCULOSKELETAL: No lower extremity edema. Normal range of motion. Right upper extremity is in a long-arm cast. (Alysha Hawkins MD R1) A/P Assessment and Plan 27-year-old female presenting with fevers/chills and chest pain found to have PE on exam and suspected PID Discharge Planning Unclear at this time. Pending further studies and clinical improvement. (Alysha Hawkins MD R1) Attending Attestation Patient examined and case discussed with resident physicians I have read the above note and agree with the assessment/plan is discussed with me I was involved in all medical decision making for this patient Questionable PID based on exam and CT scan findings - De-escalate care by discontinuing vancomycin and cefoxitin - Continue clindamycin 14 days Transition anticoagulation to warfarin - Continue to bridge with Lovenox Ruddy Kovacs M.D. (Ruddy Kovacs MD) Problem List: (1) Pulmonary emboli Status: Acute Plan: CT angiography positive for scattered segmental pulmonary emboli in the upper and lower lobe branches bilaterally Currently receiving Lovenox 1 mg/kilogram, - Pt will be transition over to warfarin today 2-D echocardiogram ordered and pending -Doppler ultrasound of upper extremities negative for DVT, limited eval of the right arm due to cast - Doppler ultrasound of lower extremities negative for DVT Ipratropium nebs q6h Incentive spirometer to bedside (2) Sepsis Status: Acute Plan: Patient meets sepsis criteria source suspected to be PID vs septic emboli Monitor vital signs q4h Lactic acid 1.4, repeat 0.7 Blood cultures pending Continue vancomycin dosing per pharmacy consult in the case of septic emboli until ruled out Continue MIVF with NS (3) PID (acute pelvic inflammatory disease) Status: Acute Plan: Possible PID given the fact that patient has increased vaginal discharge with recent expulsion of her IUD - White discharge noted on ED pelvic exam, no CMT or adnexal tenderness bilaterally - Urine test negative - Wet prep negative - GC&chlamydia negative - UA large LE, rare bacteria, urine culture mixed vanessa, probably contaminants - CT abd/pelvis showing mild HSM, 3.4 cm right ovarian cyst, uncomplicated colonic diverticulosis Plan: - Continue cefoxitin 2gm IV q6h (started on 05/23) and doxycycline 100 mg po q12h (started on 05/23) for PID coverage - Follow blood and urine culture - MIVF NS at 150 cc/hr - Toradol 15 mg IV q6h prn pain (4) Chest pain Status: Acute Plan: Likely associated with pulmonary emboli EKG showing sinus tachycardia, T wave inversions leads V2-V4, right ventricular conduction delay may be due to PE Troponin < 0.02 x2 Repeat EKG showing sinus tachycardia, ~1mm ST depressions in V3-V4 unchanged from prior EKG (5) Anemia Status: Chronic Plan: Patient has a h/o iron deficiency anemia Hgb trending down to 6.8 today, will transfuse 1 unit of RBCs Stool occult blood ordered (6) Nutrition, metabolism, and development symptoms Status: Acute Plan: Fluids: NS at 150 cc/hr Electrolytes: Continue to monitor and replete as necessary Nutrition: regular diet DVT ppx: therapeutic lovenox as above GI ppx: Protonix 40 mg po daily (Alysha Hawkins MD R1) Problem Qualifiers (1) Pulmonary emboli: Qualified Code: I26.99 - Other acute pulmonary embolism without acute cor pulmonale Alysha Hawkins MD R1 May 25, 2017 11:16 Ruddy Kovacs MD May 25, 2017 15:24
[2017-05-25] MEDS: ENOXAPARIN SODIUM 120 MG/0.8 ML SYRINGE SQ SCH ×2 (12:12→22:56)
[2017-05-25] MEDS: WARFARIN SOD 5 MG TAB PO SCH (15:18)
[2017-05-25] MEDS ORDERED: WARFARIN SOD 5 MG TAB PO ONE (16:00)
[2017-05-25] MEDS ORDERED: VANCOMYCIN INJ 1,750 MG in SODIUM CHLORID 0.9% 500 ML INJ 500 ML IV SCH (18:00)
[2017-05-25 19:32] LABS: REVIEW FLAG FINAL
[2017-05-25] MEDS ORDERED: RESP: IPRATROPIUM 0.5 MG/2.5 ML NEB NEB PRN (21:15)
--- NOTE | 2017-05-25 21:50 | ECHRPT ---
Indication: Chest pain, unspecified CONCLUSIONS Normal left ventricular size and wall thickness. The left ventricular systolic function is normal wi th an estimated ejection fraction in the range of 60-65%. Left ventricular diastolic function parameters a re normal. There is mild tricuspid valve regurgitation. The estimated pulmonary arterial pressure is 38 mmHg. BP: 143 / 68 HR: 92 Rhythm: Sinus MEASUREMENTS (Male / Female) Normal Values Technical Quality:Fair 2D ECHO LV Diastolic Diameter PLAX 5.3 cm 4.2 - 5.9 / 3.9 - 5.3 cm LV Systolic Diameter PLAX 3.9 cm IVS Diastolic Thickness 1.1 cm 0.6 - 1.0 / 0.6 - 0.9 cm LVPW Diastolic Thickness 1.2 cm 0.6 - 1.0 / 0.6 - 0.9 cm LV Relative Wall Thickness 0.4 LVOT Diameter 2.2 cm M-MODE Aortic Root Diameter MM 2.8 cm LA Systolic Diameter MM 3.2 cm LA Ao Ratio MM 1.1 AV Cusp Separation MM 2.1 cm DOPPLER AV Peak Velocity 140.0 cm/s AV Peak Gradient 7.8 mmHg LVOT Peak Velocity 97.5 cm/s LVOT Peak Gradient 3.8 mmHg AV Area Cont Eq pk 2.6 cm Mitral E Point Velocity 150.0 cm/s Mitral A Point Velocity 58.6 cm/s Mitral E to A Ratio 2.6 LV E' Lateral Velocity 11.3 cm/s Mitral E to LV E' Lateral Ratio 13.3 LV E' Septal Velocity 8.3 cm/s Mitral E to LV E' Septal Ratio 18.1 TR Peak Velocity 266.0 cm/s TR Peak Gradient 28.3 mmHg PV Peak Velocity 113.0 cm/s PV Peak Gradient 5.1 mmHg FINDINGS LEFT VENTRICLE Normal left ventricular size and wall thickness. The left ventricular systolic function is normal wi th an estimated ejection fraction in the range of 60-65%. Left ventricular diastolic function parameters a re normal. RIGHT VENTRICLE Normal right ventricular size and systolic function. LEFT ATRIUM The left atrial size is normal. RIGHT ATRIUM The right atrial size is normal. ATRIAL SEPTUM Normal atrial septal thickness without atrial level shunting by limited color doppler interrogation. AORTA The aortic root and proximal ascending aorta are normal in size on limited imaging. MITRAL VALVE Structurally normal mitral valve. No mitral valve stenosis or regurgitation. AORTIC VALVE Trileaflet aortic valve. No aortic valve stenosis or regurgitation. TRICUSPID VALVE There is mild tricuspid valve regurgitation. The estimated pulmonary arterial pressure is 38 mmHg. PULMONARY VALVE The pulmonary valve is not well visualized. VESSELS The inferior vena cava is normal in size. PERICARDIUM No pericardial effusion. Bonny Zapata MD, FACC (Electronically Signed) Final Date:25 May 2017 21:48
--- NOTE | 2017-05-25 22:16 | RADRPT ---
EXAM DATE/TIME: 05/25/2017 22:06 [facility] COMPARISON: CHEST SINGLE AP, May 23, 2017, 5:33. INDICATIONS : Short of breath. MEDICAL HISTORY : None. SURGICAL HISTORY : None. ENCOUNTER: Subsequent ACUITY: 3 days PAIN SCORE: Non-responsive. LOCATION: Bilateral chest FINDINGS: A single view of the chest demonstrates the lungs to be symmetrically aerated without evidence of mas s, infiltrate or effusion. The cardiomediastinal contours are unremarkable. Osseous structures are intact. CONCLUSION: No acute disease. Samy Elkins MD on May 25, 2017 at 22:15 Board Certified Radiologist. This report was verified electronically.
[2017-05-26] VITALS (12 sets, daily range): BP systolic 134–168; BP diastolic 86–114; PULSE 62–81; RESP 16–22; TEMP 96.9–98; O2SAT 93–100
[2017-05-26] MEDS: KETOROLAC TROMETHAMINE 30 MG/ML (IVP) VIAL IV PUSH PRN ×3 (00:21→20:36)
[2017-05-26] MEDS: LORazepam 1 MG TAB PO PRN ×3 (00:21→23:06)
[2017-05-26] MEDS: SODIUM CHLOR 0.9% 1000 ML INJ 1,000 ML IV SCH ×3 (02:00→17:33)
[2017-05-26] MEDS: DOXYCYCLINE HYCLATE 100 MG CAP PO SCH ×2 (02:12→14:01)
[2017-05-26 05:31] LABS: INTERNATIONAL NORMALIZED RATIO 1.1 RATIO; PROTHROMBIN TIME - PATIENT 11.7 SEC (9.8-11.6)
[2017-05-26 05:33] LABS: HEMATOCRIT 23.1 % (35.0-46.0); MEAN CELL VOLUME 79.1 FL (80.0-100.0); MEAN CORPUSCULAR HGB CONC 32.9 % (32.0-36.0); PLATELET COUNT 219 TH/MM3 (150-450); RED BLOOD COUNT 2.92 MIL/MM3 (4.00-5.30); RED CELL DISTRIBUTION WIDTH 18.1 % (11.6-17.2); REVIEW FLAG FINAL; WHITE BLOOD COUNT 6.7 TH/MM3 (4.0-11.0)
[2017-05-26 05:48] LABS: POTASSIUM 3.3 MEQ/L (3.5-5.1)
--- NOTE | 2017-05-26 08:27 | HHI.FPPN ---
Subjective Remarks Overnight patient reported chest pain and shortness of breath. Patient was given atrovent neb treatment and troponin, EKG, CXR ordered. Troponin negative, CXR unremarkable. EKG no changes from prior EKG. This morning patient continues to report chest pain right-sided that is pleuritic and radiating to her back. She was placed on O2 about one hour ago and states this helps and she is much more comfortable now. She denies fevers or chills, fatigue, lightheadedness. Appetite is decrease 2/2 some nausea. Denies any vomiting. (Alexys Massey MD R1) Objective Vitals Vital Signs Date Time Temp Pulse Resp B/P Pulse Ox O2 Delivery O2 Flow Rate FiO2 05/26/17 06:49 96.9 62 22 168/95 100 05/26/17 04:00 97.6 67 19 141/93 97 05/26/17 00:00 98.0 70 19 142/89 98 05/25/17 21:59 100 21 05/25/17 21:43 167/97 05/25/17 20:00 98.2 69 19 176/111 100 05/25/17 16:00 98.5 76 16 156/104 98 05/25/17 14:03 96.7 65 17 150/84 98 05/25/17 12:00 97.9 91 20 140/97 98 I/O 05/25/17 05/25/17 05/25/17 05/26/17 05/26/17 05/26/17 07:00 15:00 23:00 07:00 15:00 23:00 Intake Total 1390 ml 2912 ml 788 ml 740 ml 100 ml Output Total 14 ml Balance 1390 ml 2912 ml 774 ml 740 ml 100 ml Intake Oral 240 ml 480 ml 480 ml 240 ml IV Total 1150 ml 2432 ml 500 ml 100 ml Packed Cells 308 ml Output Urine Total 14 ml # Voids 3 4 2 # Bowel Movements 4 1 1 (Alexys Massey MD R1) Result Diagram: 05/26/1733805/26/17338 Objective Remarks GENERAL: NAD, pleasant, sitting in chair CARDIOVASCULAR: Regular rate and rhythm without murmurs, rubs, or gallops. Peripheral pulses 2+. RESPIRATORY: Clear to auscultation b/l without w/r/r. No accessory muscle use. GASTROINTESTINAL: Abdomen soft, nontender, +BS, ND MUSCULOSKELETAL: No lower extremity edema. Normal range of motion. Right upper extremity is in a long-arm cast. (Alexys Massey MD R1) A/P Assessment and Plan 27-year-old female presented with fevers/chills and chest pain found to have PE on exam and suspected PID Discharge Planning Anticipate discharge today. Patient has been instructed on how to give subq Lovenox injections herself and will follow up with her PCP Dr. Argueta for f/u INR checks. (Alexys Massey MD R1) Attending Attestation Patient examined and case discussed with resident physician I have read the above note and agree with the assessment/plan as discussed with me I was involved in all medical decision making for this patient Patient continues to have reproducible chest wall pain - Continue Toradol - Order written for [place] 5/325 to help with pain Started on warfarin yesterday evening, continue to bridge with Lovenox - Home health referral placed to assist with anticoagulation bridge at home - Case management consulted to help obtain Lovenox bridge - She will follow-up with her PCP for INR management Complete a 14 day course of doxycycline 100 mg by mouth twice a day Ruddy Kovacs M.D. (Ruddy Kovacs MD) Problem List: (1) Pulmonary emboli Status: Acute Plan: CT angiography positive for scattered segmental pulmonary emboli in the upper and lower lobe branches bilaterally Currently receiving Lovenox 1 mg/kilogram q12h - Continue bridge to Coumadin - INR subtherapeutic 1.1 today 2-D echo showing normal LV size and wall thickness, LV systolic function normal , EF 60-65%, mild TV regurg - Doppler ultrasound of upper extremities negative for DVT, limited eval of the right arm due to cast - Doppler ultrasound of lower extremities negative for DVT Duonebs QID scheduled Incentive spirometer to bedside (2) Sepsis Status: Acute Plan: Patient met sepsis criteria on admission source suspected to be PID vs septic emboli Monitor vital signs q4h Lactic acid 1.4, repeat 0.7 Blood cultures no growth after 2 days Antibiotic therapy de-escalated Vancomycin and Cefoxitin discontinued Continue NS 150 cc/hr (3) PID (acute pelvic inflammatory disease) Status: Acute Plan: Possible PID given the fact that patient has increased vaginal discharge with recent expulsion of her IUD - White discharge noted on ED pelvic exam, no CMT or adnexal tenderness bilaterally - Urine test negative - Wet prep negative - GC&chlamydia negative - UA large LE, rare bacteria, urine culture mixed vanessa, probably contaminants - CT abd/pelvis showing mild HSM, 3.4 cm right ovarian cyst, uncomplicated colonic diverticulosis Plan: - Continue cefoxitin 2gm IV q6h (started on 05/23) and doxycycline 100 mg po q12h (started on 05/23) for PID coverage - BCx no growth after 2 days - UCx with 50-100,000 cfus mixed vanessa - Continue NS at 150 cc/hr - Toradol 15 mg IV q6h prn pain (4) Chest pain Status: Acute Plan: Likely associated with pulmonary emboli EKG on admission showing sinus tachycardia, T wave inversions leads V2-V4, right ventricular conduction delay may be due to PE Repeat EKG overnight in NSR, again t-wave inversions leads V2-V4 Troponin < 0.02 x3 (5) Anemia Status: Chronic Plan: Patient has a h/o iron deficiency anemia S/p 1 unit PRBCs transfused on 05/25 after Hgb found to be 6.8 Hgb stable today, 7.6 Hemoccult negative (6) Nutrition, metabolism, and development symptoms Status: Acute Plan: Fluids: NS at 150 cc/hr Electrolytes: Continue to monitor and replete as necessary Nutrition: regular diet DVT ppx: therapeutic lovenox as above with bridge to coumadin GI ppx: Protonix 40 mg po daily (Alexys Massey MD R1) Problem Qualifiers (1) Pulmonary emboli: Qualified Code: I26.99 - Other acute pulmonary embolism without acute cor pulmonale Alexys Massey MD R1 May 26, 2017 08:27 Ruddy Kovacs MD May 26, 2017 13:50
[2017-05-26] MEDS ORDERED: POTASSIUM CHLORIDE 10 MEQ CONTROLLED RELEASE TAB PO ONE (08:30)
[2017-05-26] MEDS: RESP: ALBUTEROL 2.5 MG/IPRATROPIUM 0.5 MG NEB (SCH) NEB ×4 (08:30→19:18)
[2017-05-26] MEDS: SODIUM CHLORIDE 0.9% FLUSH 10 ML FLUSH IV FLUSH SCH ×2 (09:00→20:37)
[2017-05-26] MEDS: PANTOPRAZOLE SOD 40 MG DELAYED RELEASE TAB PO SCH (09:00)
[2017-05-26] MEDS: ENOXAPARIN SODIUM 120 MG/0.8 ML SYRINGE SQ SCH ×2 (11:26→23:06)
--- NOTE | 2017-05-26 12:50 | EKG ---
Date Performed: 05/25/2017 Time Performed: 22:15:20 PTAGE: 27 years EKG: Sinus rhythm WITH SINUS ARRHYTHMIA MODERATE T-WAVE ABNORMALITY, CONSIDER ANTERIOR ISCHEMIA ABNORMAL ECG PREVIOUS TRACING : 05/23/2017 20.30 DOCTOR: Jean Frey Interpretating Date/Time 05/26/2017 12:46:52
[2017-05-26] MEDS: ACETAMINOPHEN 500 MG CPLT PO PRN ×2 (14:01→20:32)
[2017-05-26] MEDS: WARFARIN SOD 5 MG TAB PO SCH (15:12)
[2017-05-26] MEDS: ACETAMINOPHEN/HYDROcodone 325 MG/5 MG TAB PO PRN (15:12)
[2017-05-26] MEDS: PROMETHAZINE HCL 25 MG TAB PO PRN (15:19)
--- NOTE | 2017-05-26 15:29 | RADRPT ---
EXAM DATE/TIME: 05/26/2017 14:23 [facility] COMPARISON: WRIST RIGHT LIMITED(AP & LAT), April 10, 2017, 11:14. INDICATIONS : Right wrist pain. MEDICAL HISTORY : None. SURGICAL HISTORY : ORIF of the right wrist. ENCOUNTER: Subsequent ACUITY: 1 month PAIN SCORE: 6/10 LOCATION: Right wrist. FINDINGS: The patient is status post ORIF of right distal radial fracture and placement of transverse pin in th e region of the distal radius and ulna. CONCLUSION: Stable hardware within the distal radius and ulna. Jamin Buenrostro MD on May 26, 2017 at 15:24 Board Certified Radiologist. This report was verified electronically.
[2017-05-27] MEDS: DOXYCYCLINE HYCLATE 100 MG CAP PO SCH ×2 (02:36→13:55)
[2017-05-27 04:12] VITALS: BP 139/93; PULSE 82; RESP 18; TEMP 96.6; O2SAT 98
[2017-05-27 05:36] LABS: INTERNATIONAL NORMALIZED RATIO 2.2 RATIO; PROTHROMBIN TIME - PATIENT 25.5 SEC (9.8-11.6)
[2017-05-27 05:43] LABS: AUTOMATED NEUTROPHIL # 3.6 TH/MM3 (1.8-7.7); BASOPHIL % 0.3 % (0.0-2.0); EOSINOPHIL # 0.1 TH/MM3 (0-0.4); EOSINOPHIL % 2.4 % (0.0-4.0); HEMATOCRIT 24.1 % (35.0-46.0); HEMO FLAGS DIFF FINAL; LYMPH % 32.4 % (9.0-44.0); MEAN CELL VOLUME 79.5 FL (80.0-100.0); MEAN CORPUSCULAR HEMOGLOBIN 24.9 PG (27.0-34.0); MEAN CORPUSCULAR HGB CONC 31.4 % (32.0-36.0); MONO % 7.5 % (0.0-8.0); NEUT % 57.4 % (16.0-70.0); PLATELET COUNT 277 TH/MM3 (150-450); RED BLOOD COUNT 3.03 MIL/MM3 (4.00-5.30); RED CELL DISTRIBUTION WIDTH 18.7 % (11.6-17.2); WHITE BLOOD COUNT 6.3 TH/MM3 (4.0-11.0)
[2017-05-27] MEDS ORDERED: PHARMACY ORDERED LAB ONE (05:45)
[2017-05-27 05:52] LABS: BICARBONATE 22.8 MEQ/L (21.0-32.0); POTASSIUM 3.3 MEQ/L (3.5-5.1)
[2017-05-27] MEDS: SODIUM CHLOR 0.9% 1000 ML INJ 1,000 ML IV SCH (05:52)
[2017-05-27] MEDS: ACETAMINOPHEN/HYDROcodone 325 MG/5 MG TAB PO PRN ×2 (07:35→13:55)
[2017-05-27] MEDS: RESP: ALBUTEROL 2.5 MG/IPRATROPIUM 0.5 MG NEB (SCH) NEB ×2 (07:45→12:03)
[2017-05-27 08:00] VITALS: BP 157/103; PULSE 70; RESP 17; TEMP 97.6; O2SAT 94
[2017-05-27] MEDS ORDERED: POTASSIUM CHLORIDE 10 MEQ CONTROLLED RELEASE TAB PO ONE (08:30)
--- NOTE | 2017-05-27 08:33 | HHI.FPPN ---
Subjective Remarks No acute events overnight. Pt doing well this AM. Lying in bed, watching TV. Afebrile. BP slightly elevated due to pain. Complains of tightening 5/10 chest pain that radiates to the back, unchanged since admission, most likely related to PE. Reports that she has non-bloody diarrhea. Denies SOB, abdominal pain, N/ V, and calf swelling. (Alysha Hawkins MD R1) Objective Vitals Vital Signs Date Time Temp Pulse Resp B/P Pulse Ox O2 Delivery O2 Flow Rate FiO2 05/27/17 08:00 97.6 70 17 157/103 94 05/27/17 04:12 96.6 82 18 139/93 98 05/26/17 23:51 97.1 78 18 137/86 95 05/26/17 21:36 18 05/26/17 21:36 18 05/26/17 20:15 81 05/26/17 20:01 97.6 79 18 152/92 93 05/26/17 17:03 05/26/17 16:00 97.7 76 16 134/93 99 05/26/17 15:11 94 21 05/26/17 12:48 144/92 05/26/17 12:12 99 Nasal Cannula 2.00 05/26/17 12:00 97.3 68 18 144/92 96 05/26/17 11:16 I/O 05/26/17 05/26/17 05/26/17 05/27/17 05/27/17 05/27/17 07:00 15:00 23:00 07:00 15:00 23:00 Intake Total 740 ml 1016 ml 2580 ml 1174 ml Balance 740 ml 1016 ml 2580 ml 1174 ml Intake Oral 240 ml 916 ml 380 ml 360 ml IV Total 500 ml 100 ml 2200 ml 814 ml # Voids 2 5 2 2 # Bowel Movements 1 5 0 (Alysha Hawkins MD R1) Result Diagram: 05/27/17 0339 05/27/17 0338 Imaging Last Impressions Wrist X-Ray 05/26/17 0000 Signed Impressions: Service Date/Time: April 14:23 - CONCLUSION: Stable hardware within the distal radius and ulna. Jamin Buenrostro MD Chest X-Ray 7/26/17 0000 Signed Impressions: Service Date/Time: Thursday, May 25, 2017 22:06 - CONCLUSION: No acute disease. Samy Elkins MD Upper Extremity Ultrasound 05/24/17 Signed Impressions: Service Date/Time: Wednesday, May 24, 2017 15:37 - CONCLUSION: Limited evaluation of the right arm. No evidence of DVT Hardik Portillo MD Lower Extremity Ultrasound 05/24/17 Signed Impressions: Service Date/Time: Wednesday, May 24, 2017 08:29 - CONCLUSION: No evidence of deep venous thrombosis within the lower extremities. Jamin Buenrostro MD CT Angiography 05/23/17 Signed Impressions: Service Date/Time: Tuesday, May 23, 2017 08:52 - CONCLUSION: 1. Scattered segmental pulmonary emboli within the upper and lower lobe branches bilaterally. 2. Hepatosplenomegaly. Jamin Buenrostro MD Abdomen/Pelvis CT 05/23/17 Signed Impressions: Service Date/Time: Tuesday, May 23, 2017 08:52 - CONCLUSION: 1. Mild hepatosplenomegaly. 2. A 3.4 cm right ovarian cyst. 3. Uncomplicated colonic diverticulosis. Jamin Buenrostro MD Objective Remarks GENERAL: NAD, lying in bed CARDIOVASCULAR: Regular rate and rhythm without murmurs, rubs, or gallops. Peripheral pulses 2+. RESPIRATORY: Clear to auscultation b/l without w/r/r. No accessory muscle use. GASTROINTESTINAL: Abdomen soft, nontender, +BS, ND MUSCULOSKELETAL: No lower extremity edema. Normal range of motion. Right upper extremity is in a long-arm cast. (Alysha Hawkins MD R1) A/P Assessment and Plan 27-year-old female presented with fevers/chills and chest pain found to have PE on exam and suspected PID Discharge Planning Anticipate discharge today. Patient has been instructed on how to give subq Lovenox injections herself and will follow up with her PCP Dr. Argueta for f/u INR checks. (Alysha Hawkins MD R1) Attending Attestation Patient examined and case discussed with resident physicians I have read the above note and agree with the assessment/plan is discussed with me I was involved in all medical decision making for this patient Ruddy Kovacs M.D. (Ruddy Kovacs MD) Problem List: (1) Pulmonary emboli Status: Acute Plan: CT angiography positive for scattered segmental pulmonary emboli in the upper and lower lobe branches bilaterally - INR within therapeutic range 2.2 today -Continue coumadin 5mg PO daily -Discontinue Lovenox 2-D echo showing normal LV size and wall thickness, LV systolic function normal , EF 60-65%, mild TV regurg - Doppler ultrasound of upper extremities negative for DVT, limited eval of the right arm due to cast - Doppler ultrasound of lower extremities negative for DVT Duonebs QID scheduled Incentive spirometer to bedside (2) Sepsis Status: Acute Plan: Patient met sepsis criteria on admission source suspected to be PID vs septic emboli Monitor vital signs q4h Lactic acid 1.4, repeat 0.7 Blood cultures no growth after 2 days Antibiotic therapy de-escalated Vancomycin and Cefoxitin discontinued Continue NS 150 cc/hr (3) PID (acute pelvic inflammatory disease) Status: Acute Plan: Possible PID given the fact that patient has increased vaginal discharge with recent expulsion of her IUD - White discharge noted on ED pelvic exam, no CMT or adnexal tenderness bilaterally - Urine test negative - Wet prep negative - GC&chlamydia negative - UA large LE, rare bacteria, urine culture mixed vanessa, probably contaminants - CT abd/pelvis showing mild HSM, 3.4 cm right ovarian cyst, uncomplicated colonic diverticulosis Plan: - Continue doxycycline 100 mg po q12h (started on 05/23) for PID coverage - BCx no growth after 2 days - UCx with 50-100,000 cfus mixed vanessa - Continue NS at 150 cc/hr - Toradol 15 mg IV q6h prn pain (4) Chest pain Status: Acute Plan: Likely associated with pulmonary emboli EKG on admission showing sinus tachycardia, T wave inversions leads V2-V4, right ventricular conduction delay may be due to PE Repeat EKG overnight in NSR, again t-wave inversions leads V2-V4 Troponin < 0.02 x3 (5) Anemia Status: Chronic Plan: Patient has a h/o iron deficiency anemia S/p 1 unit PRBCs transfused on 05/25 after Hgb found to be 6.8 Hgb stable today, 7.6 Hemoccult negative (6) Nutrition, metabolism, and development symptoms Status: Acute Plan: Fluids: None Electrolytes: Continue to monitor and replete as necessary Nutrition: regular diet DVT ppx: coumadin GI ppx: Protonix 40 mg po daily (Alysha Hawkins MD R1) Problem Qualifiers (1) Pulmonary emboli: Qualified Code: I26.99 - Other acute pulmonary embolism without acute cor pulmonale Alysha Hawkins MD R1 May 27, 2017 08:33 Ruddy Kovacs MD May 27, 2017 13:14
[2017-05-27] MEDS ORDERED: TYLE325T PO (08:48)
[2017-05-27] MEDS ORDERED: HYDR-3516 PO (08:48)
[2017-05-27] MEDS ORDERED: DOXY100C PO (08:48)
[2017-05-27] MEDS ORDERED: COUM5TAB PO (08:48)
[2017-05-27] MEDS ORDERED: PANT40TA3 PO (08:48)
--- NOTE | 2017-05-27 08:52 | HHI.DCPOC ---
Discharge Care Plan Diagnosis: (1) Multiple pulmonary emboli (2) Anemia (3) PID (acute pelvic inflammatory disease) (4) Sepsis Goals to Promote Your Health * To prevent worsening of your condition and complications, follow up within PCP within 3-5 upon discharge, come back to hospital to draw labs(CBC, INR) as directed Directions to Meet Your Goals Take your medications as prescribed Follow your dietary instruction Follow activity as directed Keep your appointments as scheduled Take your immunizations and boosters as scheduled If your symptoms worsen call your PCP, if no PCP go to Urgent Care Center or Emergency Room Smoking is Dangerous to Your Health. Avoid second hand smoke Call the 24-hour hour crisis hotline for domestic abuse at Alysha Hawkins MD R1 May 27, 2017 08:52
--- NOTE | 2017-05-27 08:53 | HHI.DS ---
Discharge Summary Admission Date May 23, 2017 at 12:05 Discharge Date: May 27, 2017 Admitting Diagnosis Pulmonary emboli (1) Pulmonary emboli Diagnosis: Principal Plan: CT angiography positive for scattered segmental pulmonary emboli in the upper and lower lobe branches bilaterally - INR within therapeutic range 2.2 today -Continue coumadin 5mg PO daily -Discontinue Lovenox 2-D echo showing normal LV size and wall thickness, LV systolic function normal , EF 60-65%, mild TV regurg - Doppler ultrasound of upper extremities negative for DVT, limited eval of the right arm due to cast - Doppler ultrasound of lower extremities negative for DVT Duonebs QID scheduled Incentive spirometer to bedside (2) Sepsis Diagnosis: Principal Plan: Patient met sepsis criteria on admission source suspected to be PID vs septic emboli Monitor vital signs q4h Lactic acid 1.4, repeat 0.7 Blood cultures no growth after 2 days Antibiotic therapy de-escalated Vancomycin and Cefoxitin discontinued Continue NS 150 cc/hr (3) PID (acute pelvic inflammatory disease) Diagnosis: Secondary Plan: Possible PID given the fact that patient has increased vaginal discharge with recent expulsion of her IUD - White discharge noted on ED pelvic exam, no CMT or adnexal tenderness bilaterally - Urine test negative - Wet prep negative - GC&chlamydia negative - UA large LE, rare bacteria, urine culture mixed vanessa, probably contaminants - CT abd/pelvis showing mild HSM, 3.4 cm right ovarian cyst, uncomplicated colonic diverticulosis Plan: - Continue doxycycline 100 mg po q12h (started on 05/23) for PID coverage - BCx no growth after 2 days - UCx with 50-100,000 cfus mixed vanessa - Continue NS at 150 cc/hr - Toradol 15 mg IV q6h prn pain (4) Chest pain Diagnosis: Secondary Plan: Likely associated with pulmonary emboli EKG on admission showing sinus tachycardia, T wave inversions leads V2-V4, right ventricular conduction delay may be due to PE Repeat EKG overnight in NSR, again t-wave inversions leads V2-V4 Troponin < 0.02 x3 (5) Anemia Diagnosis: Secondary Plan: Patient has a h/o iron deficiency anemia S/p 1 unit PRBCs transfused on 05/25 after Hgb found to be 6.8 Hgb stable today, 7.6 Hemoccult negative (6) Nutrition, metabolism, and development symptoms Diagnosis: Secondary Plan: Fluids: None Electrolytes: Continue to monitor and replete as necessary Nutrition: regular diet DVT ppx: coumadin GI ppx: Protonix 40 mg po daily [facility] Case Management PT Brief History Chikis Verduzco is a very pleasant 27 year old woman who presents to the ED due to fevers and chest pain. She states last night around midnight she starting to feel feverish, she checked her temperature and it was 103.0F orally. She also had chest pain at that time, she states it was left-sided and radiating to her left upper back. She also reports SOB last night and her CP being pleuritic. She does report a history of mild panic attacks and having symptoms such as these before. Denies h/o anxiety or depression or taking medications for these issues. She also reports LLQ abdominal pain about 5/10 in nature, states the pain is dull in nature, nonradiating, has been present for about two to three days. She states she believes she has had this abdominal pain since her IUD fell out which she states was about 4 days ago however per EMR review her IUD had fallen out prior to an ED visit on 05/12. She endorses vaginal discharge over the past 3 days which she states is yellow and somewhat thin. Denies any bleeding. Denies any pelvic and suprapubic pain recently. She states the last time she had intercourse was with her on 05/10 on her anniversary. She denies ever having gonorrhea or chlamydia or other STIs however does endorse having multiple UTIs in the past. Chikis had presented to the [facility] ED on 05/12 after believing her IUD was not in place. Per report, she had had the IUD placed a couple weeks prior to that visit. She had partial expulsion of the IUD in the ED and the IUD was removed. She was afebrile with unremarkable vital signs at that time and sent home. CBC/BMP: 05/27/17 0339 05/27/17 0338 Significant Findings Laboratory Tests Test 05/24/17 05/25/17 05/25/17 05/25/17 11:20 05:00 18:32 23:05 Red Blood Count 2.98 MIL/MM3 2.69 MIL/MM3 (4.00-5.30) (4.00-5.30) Hemoglobin 7.6 GM/DL 6.8 GM/DL 7.7 GM/DL (11.6-15.3) (11.6-15.3) (11.6-15.3) Hematocrit 23.3 % 21.1 % 23.0 % (35.0-46.0) (35.0-46.0) (35.0-46.0) Mean Corpuscular Volume 78.1 FL 78.3 FL (80.0-100.0) (80.0-100.0) Mean Corpuscular Hemoglobin 25.6 PG 25.4 PG (27.0-34.0) (27.0-34.0) Red Cell Distribution Width 18.8 % 18.9 % (11.6-17.2) (11.6-17.2) Neutrophils (%) (Auto) 71.3 % (16.0-70.0) Monocytes (%) (Auto) 10.6 % 9.7 % (0.0-8.0) (0.0-8.0) Potassium Level 3.4 MEQ/L 3.4 MEQ/L (3.5-5.1) (3.5-5.1) Chloride Level 111 MEQ/L 113 MEQ/L (98-107) (98-107) Blood Urea Nitrogen 4 MG/DL (7-18) 6 MG/DL (7-18) Estimat Glomerular Filtration 80 ML/MIN (>89) 76 ML/MIN (>89) Rate Calcium Level 7.8 MG/DL 7.6 MG/DL (8.5-10.1) (8.5-10.1) Aspartate Amino Transf 11 U/L (15-37) (AST/SGOT) Troponin I LESS THAN 0.02 LESS THAN 0.02 NG/ML NG/ML (0.02-0.05) (0.02-0.05) Total Protein 6.3 GM/DL (6.4-8.2) Albumin 2.6 GM/DL (3.4-5.0) Carbon Dioxide Level 20.3 MEQ/L (21.0-32.0) Vancomycin Level Trough 22.9 MCG/ML (5.0-10.0) Test 05/26/17 05/27/17 05/27/17 03:39 03:38 03:39 Red Blood Count 2.92 MIL/MM3 3.03 MIL/MM3 (4.00-5.30) (4.00-5.30) Hemoglobin 7.6 GM/DL 7.6 GM/DL (11.6-15.3) (11.6-15.3) Hematocrit 23.1 % 24.1 % (35.0-46.0) (35.0-46.0) Mean Corpuscular Volume 79.1 FL 79.5 FL (80.0-100.0) (80.0-100.0) Mean Corpuscular Hemoglobin 26.0 PG 24.9 PG (27.0-34.0) (27.0-34.0) Red Cell Distribution Width 18.1 % 18.7 % (11.6-17.2) (11.6-17.2) Prothrombin Time 11.7 SEC 25.5 SEC (9.8-11.6) (9.8-11.6) Potassium Level 3.3 MEQ/L 3.3 MEQ/L (3.5-5.1) (3.5-5.1) Chloride Level 111 MEQ/L 111 MEQ/L (98-107) (98-107) Blood Urea Nitrogen 6 MG/DL (7-18) 4 MG/DL (7-18) Calcium Level 8.3 MG/DL 7.9 MG/DL (8.5-10.1) (8.5-10.1) Mean Corpuscular Hemoglobin 31.4 % Concent (32.0-36.0) PE at Discharge GENERAL: NAD, lying in bed CARDIOVASCULAR: Regular rate and rhythm without murmurs, rubs, or gallops. Peripheral pulses 2+. RESPIRATORY: Clear to auscultation b/l without w/r/r. No accessory muscle use. GASTROINTESTINAL: Abdomen soft, nontender, +BS, ND MUSCULOSKELETAL: No lower extremity edema. Normal range of motion. Right upper extremity is in a long-arm cast. Hospital Course Pt admitted on 05/23/17 fever, chest pain, shortness of breath, and lower left quadrant abdominal pain. Patient found to have scattered segmental pulmonary emboli on CTA within the upper and lower lobe branches bilaterally and meeting sepsis criteria on admission due to PID versus septic emboli. Patient received vancomycin, fluids, and lovenox. Doppler of lower extremities were negative for DVTs. Pt started on cefoxitin and doxycycline for PID coverage. After questionable PID based on exam and CT findings. Vancomycin and cefoxitin discontinued. Patient started on and will continue Clindamycin for 14 days. Urine test negative. Wet prep negative. GC and Chlamydia negative. UA showed large LE, rare bacteria. Urine culture negative. CT abdomen and pelvis showing mild hepatosplenomegaly, 3.4 cm right ovarian cyst, uncomplicated colonic diverticulosis EKG showed sinus tachycardia, T-wave inversions in leads V2 to V4, right ventricular conduction delay. Troponin n< 0.02 x 2, most likely related to PE. Patient has history of iron deficiency anemia, hemoglobin 9.7 on admission Chest x-ray negative Upper extremity ultrasound no evidence of DVT, limited evaluation of the right arm Wrist x-ray showed stable hardware within the distal radius and ulna. Echo was normal LV size and wall thickness, LV systolic function normal, EF 60- 65%, mild TV regurg Blood cultures no growth after 2 days antibiotic therapy de-escalated Patient has history of iron deficiency anemia received 1 unit of packed red blood cells on 05/25 hemoglobin stable afterwards, Hemoccult negative Received Patient was transitioned over to Coumadin. INR was in therapeutic range (2.2) upon discharge Patient was stable and discharged on 05/27. Patient will follow up with PCP for INR within 2 days and CBC 3-5 days. Pt Condition on Discharge: Stable Discharge Disposition: Discharge Home Discharge Instructions DIET: Follow Instructions for: As Tolerated, No Restrictions Activities you can perform: Weight Bearing as Marty Follow up Referrals: Orthopedics - 3 Weeks with Ezequiel Valente MD PCP Follow-up - 2-3 Days with Loco Argueta MD R2 New Orders: CBC WITH DIFF - 3-5 Days PT/INR - 2 Days New Medications: Acetaminophen (Tylenol) 325 Mg Tab 650 MG PO Q6H PRN PAIN SCALE 1 TO 4 #30 Ref 0 TAB Doxycycline Hyclate (Doxycycline Hyclate) 100 Mg Cap 100 MG PO BID #20 CAP Hydrocodone-Acetaminophen (Hydrocodone-Acetaminophen) 5-325 mg Tab 1 TAB PO Q6H PRN PAIN SCALE 6 TO 10 #30 TAB Pantoprazole (Pantoprazole) 40 Mg Tab 40 MG PO DAILY #30 TAB Warfarin (Coumadin) 5 Mg Tab 5 MG PO DAILY@1600 #30 TAB Continued Medications: ([iron ]) 1 TAB PO DAILY Discontinued Medications: Hydrocodone-Acetaminophen (Hydrocodone-Acetaminophen) 10-325 mg Tab 1 TAB PO Q4H PRN PAIN #60 Ref 0 TAB Omeprazole Magnesium (Prilosec) 20 Mg Tab 20 MG PO DAILY Alysha Hawkins MD R1 May 27, 2017 08:53
[2017-05-27] MEDS: ACETAMINOPHEN 500 MG CPLT PO PRN (08:58)
[2017-05-27] MEDS: PANTOPRAZOLE SOD 40 MG DELAYED RELEASE TAB PO SCH (08:58)
[2017-05-27] MEDS: SODIUM CHLORIDE 0.9% FLUSH 10 ML FLUSH IV FLUSH SCH (09:00)
--- NOTE | 2017-05-27 09:29 | PD.ORT.PN ---
Subjective Subjective Remarks Admitted due to pulmonary embolism. 6 weeks out from open reduction internal fixation of right wrist Objective Vitals Vital Signs Date Time Temp Pulse Resp B/P Pulse Ox O2 Delivery O2 Flow Rate FiO2 05/27/17 08:00 97.6 70 17 157/103 94 05/27/17 04:12 96.6 82 18 139/93 98 05/26/17 23:51 97.1 78 18 137/86 95 05/26/17 21:36 18 05/26/17 21:36 18 05/26/17 20:15 81 05/26/17 20:01 97.6 79 18 152/92 93 05/26/17 17:03 05/26/17 16:00 97.7 76 16 134/93 99 05/26/17 15:11 94 21 05/26/17 12:48 144/92 05/26/17 12:12 99 Nasal Cannula 2.00 05/26/17 12:00 97.3 68 18 144/92 96 05/26/17 11:16 I/O 05/26/17 05/26/17 05/26/17 05/27/17 05/27/17 05/27/17 07:00 15:00 23:00 07:00 15:00 23:00 Intake Total 740 ml 1016 ml 2580 ml 1174 ml Balance 740 ml 1016 ml 2580 ml 1174 ml Intake Oral 240 ml 916 ml 380 ml 360 ml IV Total 500 ml 100 ml 2200 ml 814 ml # Voids 2 5 2 2 # Bowel Movements 1 5 0 Result Diagram: 05/27/17 0339 05/27/17 0338 Other Results Laboratory Tests Test 05/27/17 03:39 Prothrombin Time 25.5 SEC (9.8-11.6) Prothromb Time International 2.2 RATIO Ratio Imaging Last 72 hours Impressions Wrist X-Ray 05/26/17 0000 Signed Impressions: Service Date/Time: April 14:23 - CONCLUSION: Stable hardware within the distal radius and ulna. Jamin Buenrostro MD Chest X-Ray 05/25/17 0000 Signed Impressions: Service Date/Time: Thursday, May 25, 2017 22:06 - CONCLUSION: No acute disease. Samy Elkins MD Objective Remarks Right upper extremity: Cast removed revealing incisions distally healed. One percutaneous pin visualized. Percutaneous pin is removed with mild discomfort. She has intact sensation of her radial ulnar and median nerve distributions with good capillary refills. She is able to extend her fingers and make a fist. Assessment & Plan Assessment and Plan Right distal radius fracture with distal radial ulnar joint disruption Orthotec for cockup wrist splint Occupational therapy for passive range of motion of wrist. Nonweightbearing right wrist Daily dressing changes over pin site with Xeroform 4 x 4's and Hector wrap Follow-up with Dr. Stallings or PA in 3 weeks for repeat x-rays Nikko Taylor Jr. May 27, 2017 09:29
[2017-05-27] MEDS ORDERED: ACETAMINOPHEN/HYDROcodone 325 MG/5 MG TAB PO ONE (10:00)
[2017-05-27 12:00] VITALS: BP 157/110; PULSE 73; RESP 17; TEMP 97.6; O2SAT 97
[2017-05-27 16:20] VITALS: PULSE 72
[2017-05-30] MEDS ORDERED: HYDR-3534 PO ×2 (09:32→09:34)
== END 2017-05-27 14:38 | disposition home or self-care (01) | DRG 871 ==
LOC: NEPC 04:15 → NEDA 10:49 → OBSVTOIN 12:05 → N07A 15:03
PROVIDERS: ADMIT Family Medicine; ATTEND Family Medicine
PROC: 30253N1 (ICD-10-PCS; principal; 2017-05-23)
DX: A41.9 Sepsis, unspecified organism (principal); I26.99 Other pulmonary embolism without acute cor pulmonale; N39.0 Urinary tract infection, site not specified; D64.9 Anemia, unspecified; N72 Inflammatory disease of cervix uteri; I45.9 Conduction disorder, unspecified; K21.9 Gastro-esophageal reflux disease without esophagitis; K57.30 Diverticulosis of large intestine without perforation or abscess without bleeding; N73.8 Other specified female pelvic inflammatory diseases; N83.201 Unspecified ovarian cyst, right side; F41.0 Panic disorder [episodic paroxysmal anxiety]; Z79.01 Long term (current) use of anticoagulants; Z87.440 Personal history of urinary (tract) infections
CPT/HCPCS: 36430; 71010; 71275; 73100; 74177; 76937; 80048; 80053; 80202; 81001; 82272; 83605; 83690; 84484; 84703; 85014; 85018; 85025; 85027; 85610; 85730; 86850; 86900; 86901; 86920; 87040; 87086; 87210; 87491; 87591; 87804; 93005; 93306; 93970; 94150; 94640; 94664; 96361; 96365; 96375; J0694; J0696; J1650; J1885; J2405; J3370; J7030; J7040; J7050; J7644; L3908; P9016; Q0169; Q9967

== ENCOUNTER 2017-06-11 16:38 | Inpatient (IN) | payer MEDICAID ==
[~2017-06-11] VITALS: Ht 167.6 cm; Wt 125.0 kg
[~2017-06-11 16:38] MED LIST changes: -CARPAL TUNNEL W1 MIS; +COUM5TAB PO; +DOXY100C PO; +HYDR-3516 PO; +HYDR-3534 PO; -HYDR-3583 PO; -IRONTAB5 PO; +PANT40TA3 PO; -PRIL20TA2 PO; +TYLE325T PO; +iron PO
[2017-06-11 16:40] VITALS: BP 154/100; PULSE 98; RESP 20; TEMP 98.9; O2SAT 96
[2017-06-11] MEDS ORDERED: PRIL20TA2 (16:46)
--- NOTE | 2017-06-11 17:04 | PD ---
HPI Chief Complaint: Abnormal Results Time Seen by Provider: 17:01 Travel History International Travel<30 days: No Contact w/Intl Traveler<30days: No Traveled to known affect area: No History of Present Illness HPI 27-year-old female PMH of GERD, PID presents to the ED for evaluation of abnormal lab value. Patient states that she had ORIF of the right wrist approximately 6 weeks ago. She states that subsequent that she was diagnosed with multiple small PEs. She was started on Coumadin and has been taking 5 mg nightly. She states that she was called today and told that her INR was 10. On presentation she states that she's been having centralized chest pain that radiates to the back. It is worsened by laughing, coughing, certain motions. She also endorses intermittent SOB. She denies headaches, dizziness, fever, chills, palpitations, nausea, vomiting, dysuria. She notes dark stools over the last 2 days. Denies any bleeding from the gums, nosebleeds, rectal bleeding. She states that she is on the last day of her menstrual period which has been normal as compared to previous periods. She is followed by Dr. BROWN Past Medical History Hx Anticoagulant Therapy: Yes (WARFARIN) Anemia: Yes Cancer: No Cardiovascular Problems: No Diminished Hearing: No Endocrine: No Gastrointestinal Disorders: Yes GERD: Yes Genitourinary: No Immune Disorder: No Implanted Vascular Access Dvce: Yes Musculoskeletal: No Neurologic: No Psychiatric: No Reproductive: No Respiratory: Yes (HX PE) Immunizations Current: Yes ?: Not LMP: 06/09/17 : 2 Para: 2 Past Surgical History Body Medical Devices: right radius percutanous pinning Other Surgery: Yes Social History Alcohol Use: Yes (RARE) Tobacco Use: No Substance Use: No Allergies-Medications (Allergen,Severity, Reaction): Coded Allergies: No Known Allergies (Verified , 06/11/17) Reported Meds & Prescriptions Reported Meds & Active Scripts Active Lortab (Hydrocodone-Acetaminophen) 7.5-325 Mg Tab 1 Tab PO Q4H PRN Lortab (Hydrocodone-Acetaminophen) 7.5-325 Mg Tab 1 Tab PO Q4H PRN Doxycycline Hyclate 100 Mg Cap 100 Mg PO BID Coumadin (Warfarin) 5 Mg Tab 5 Mg PO DAILY@1600 Pantoprazole (Pantoprazole Sodium) 40 Mg Tab 40 Mg PO DAILY Tylenol (Acetaminophen) 325 Mg Tab 650 Mg PO Q6H PRN Hydrocodone-Acetaminophen 5-325 mg Tab 1 Tab PO Q6H PRN Reported [iron ] 1 Tab PO DAILY Review of Systems Except as stated in HPI: all other systems reviewed are Neg Physical Exam Narrative GENERAL: Well-nourished, well-developed, pleasant obese white female in no acute distress. SKIN: Focused skin assessment warm/dry. HEAD: Normocephalic. EYES: No scleral icterus. No injection or drainage. NECK: Supple, trachea midline. No JVD or lymphadenopathy. CARDIOVASCULAR: Regular rate and rhythm without murmurs, gallops, or rubs. CHEST: Mild tenderness over the sternum, otherwise without deformity or crepitus. No retractions or use of accessory muscles. RESPIRATORY: Breath sounds clear and equal bilaterally. No accessory muscle use. GASTROINTESTINAL: Abdomen soft, non-tender, nondistended. Active bowel sounds. RECTAL EXAM: No masses or tenderness, stool is brown. Guaiac positive. MUSCULOSKELETAL: No cyanosis, or edema. NEUROLOGICAL: Awake and alert. Cranial nerves II through XII intact. Motor and sensory grossly within normal limits. 5/5 muscle strength in all muscle groups. Normal speech. BACK: Nontender without obvious deformity. No CVA tenderness. Data Data Last Documented VS Vital Signs Date Time Temp Pulse Resp B/P Pulse Ox O2 Delivery O2 Flow Rate FiO2 06/11/17 16:40 98.9 98 20 154/100 96 Room Air Orders Type And Screen (06/11/17 16:57) Coag Profile (06/11/17 16:57) Complete Blood Count With Diff (06/11/17 16:57) Basic Metabolic Panel (Bmp) (06/11/17 16:57) ^ Insert Iv (06/11/17 16:57) Electrocardiogram (06/11/17 16:57) Ckmb (Isoenzyme) Profile (06/11/17 17:06) Troponin I (06/11/17 17:06) Phytonadione Inj (Vitamin K Inj) (06/11/17 18:00) Fresh Frozen Plasma (Ffp) (06/11/17 17:47) Blood Product Administration .UPON TRANSFUSION (06/11/17 17:47) Sodium Chlor 0.9% 250 Ml Inj (Ns 250 Ml (06/11/17 18:00) Admit Order (Ed Use Only) (06/11/17 17:54) Labs Laboratory Tests Test 06/11/17 06/11/17 17:00 17:47 White Blood Count 7.9 TH/MM3 Red Blood Count 4.18 MIL/MM3 Hemoglobin 11.1 GM/DL Hematocrit 33.0 % Mean Corpuscular Volume 79.0 FL Mean Corpuscular Hemoglobin 26.5 PG Mean Corpuscular Hemoglobin 33.6 % Concent Red Cell Distribution Width 19.2 % Platelet Count 358 TH/MM3 Mean Platelet Volume 9.1 FL Neutrophils (%) (Auto) 62.7 % Lymphocytes (%) (Auto) 27.6 % Monocytes (%) (Auto) 7.8 % Eosinophils (%) (Auto) 0.9 % Basophils (%) (Auto) 1.0 % Neutrophils # (Auto) 4.9 TH/MM3 Lymphocytes # (Auto) 2.2 TH/MM3 Monocytes # (Auto) 0.6 TH/MM3 Eosinophils # (Auto) 0.1 TH/MM3 Basophils # (Auto) 0.1 TH/MM3 CBC Comment DIFF FINAL Differential Comment Prothrombin Time GREATER THAN 180.0 SEC Prothromb Time International GREATER THAN Ratio 16.7 RATIO Activated Partial 120.7 SEC Thromboplast Time Sodium Level 138 MEQ/L Potassium Level 4.2 MEQ/L Chloride Level 104 MEQ/L Carbon Dioxide Level 26.0 MEQ/L Anion Gap 8 MEQ/L Blood Urea Nitrogen 17 MG/DL Creatinine 0.70 MG/DL Estimat Glomerular Filtration 102 ML/MIN Rate Random Glucose 84 MG/DL Calcium Level 8.8 MG/DL Blood Type A POSITIVE Antibody Screen NEGATIVE Blood Bank Comment [facility] Medical Decision Making Medical Screen Exam Complete: Yes Emergency Medical Condition: Yes Differential Diagnosis Coumadin toxicity versus chest pain versus less likely ACS versus GI bleed versus other Narrative Course 27-year-old female PMH of GERD, PID presents to the ED for evaluation of a therapeutic INR. Patient was recently diagnosed from the hospital after diagnosed with multiple small PEs. She's been taking 5 mg of Coumadin nightly. She states that she was called today and told that her INR was 10. On presentation she states that she's been having centralized chest pain that radiates to the back. It is worsened by laughing, coughing, certain motions. She also endorses intermittent SOB. She denies headaches, dizziness, fever, chills, palpitations, nausea, vomiting, dysuria. She notes dark stools over the last 2 days. Denies any bleeding from the gums, nosebleeds, rectal bleeding. She states that she is on the last day of her menstrual period which has been normal as compared to previous periods. Vitals reviewed. Patient is hypertensive and tachycardic on presentation. Physical exam reveals an obese white female in no acute distress. There is some reproducible tenderness in the central part of the chest and the rectal exam is guaiac positive, otherwise unremarkable. EKG rate 93, sinus rhythm. NE interval 163, QRS 89, QTc 402. Normal axis. No ST changes. Reviewed by Dr. Mckeon. Hemoglobin 11.1. PT >180, PTT 120.7. INR >16.7. BMP unremarkable. Patient was administered 10 mg IV vitamin K, 2 units fresh frozen plasma ordered and will be administered in the ED. I discussed the results of the workup with the patient . She is agreeable to admission. I spoke with Dr. Patel, resident, who agrees to accept the patient to the medicine service under Dr. Clark. Please see medicine notes for disposition. HemaPrompt Point of Care Internal Pos. & Neg. Controls: Passed Fecal Specimen Occult Blood: Positive Diagnosis Primary Impression: Supratherapeutic INR Additional Impression: GI bleed Qualified Code: K92.2 - Gastrointestinal hemorrhage, unspecified gastrointestinal hemorrhage type Romina Nicholas Jun 11, 2017 17:04
[2017-06-11 17:15] LABS: AUTOMATED NEUTROPHIL # 4.9 TH/MM3 (1.8-7.7); BASOPHIL # 0.1 TH/MM3 (0-0.2); EOSINOPHIL # 0.1 TH/MM3 (0-0.4); EOSINOPHIL % 0.9 % (0.0-4.0); HEMO FLAGS DIFF FINAL; LYMPH % 27.6 % (9.0-44.0); LYMPHOCYTE # 2.2 TH/MM3 (1.0-4.8); MEAN CORPUSCULAR HEMOGLOBIN 26.5 PG (27.0-34.0); MEAN CORPUSCULAR HGB CONC 33.6 % (32.0-36.0); MONO % 7.8 % (0.0-8.0); NEUT % 62.7 % (16.0-70.0); PLATELET COUNT 358 TH/MM3 (150-450); RED BLOOD COUNT 4.18 MIL/MM3 (4.00-5.30); RED CELL DISTRIBUTION WIDTH 19.2 % (11.6-17.2); WHITE BLOOD COUNT 7.9 TH/MM3 (4.0-11.0)
[2017-06-11 17:40] LABS: POTASSIUM 4.2 MEQ/L (3.5-5.1)
[2017-06-11 17:42] LABS: APTT (PATIENT) 120.7 SEC (24.3-30.1); INTERNATIONAL NORMALIZED RATIO GREATER THAN 16.7 RATIO; PROTHROMBIN TIME - PATIENT GREATER THAN 180.0 SEC (9.8-11.6)
[2017-06-11] MEDS ORDERED: SODIUM CHLOR 0.9% 1000 ML INJ 1,000 ML IV SCH (17:56)
[2017-06-11] MEDS ORDERED: ACETAMINOPHEN 325 MG TAB PO PRN (18:00)
[2017-06-11] MEDS ORDERED: BISACODYL 10 MG SUPP RECTAL PRN ×2 (18:00→19:15)
[2017-06-11] MEDS ORDERED: PHYTONADIONE INJ 10 MG in DEXTROSE 5% IN WATER INJ 50 ML IV ONE ×2 (18:00)
[2017-06-11] MEDS ORDERED: LACTULOSE SYRUP 20 GM/30 ML CUP PO PRN ×2 (18:00→19:15)
[2017-06-11] MEDS ORDERED: SENNOSIDES 8.6 MG TAB PO PRN ×2 (18:00→19:15)
[2017-06-11] MEDS ORDERED: PANTOPRAZOLE SODIUM 40 MG VIAL IV PUSH SCH (18:00)
[2017-06-11] MEDS ORDERED: MAGNESIUM HYDROXIDE SUSP 30 ML CUP PO PRN ×2 (18:00→19:15)
[2017-06-11] MEDS ORDERED: NALOXONE HCL 0.4 MG/ML AMP IV PRN ×2 (18:00→19:15)
[2017-06-11] MEDS ORDERED: ONDANSETRON HCL 4 MG/2 ML VIAL IVP PRN ×2 (18:00→19:15)
[2017-06-11] MEDS ORDERED: SODIUM CHLOR 0.9% 250 ML INJ 250 ML IV ONE (18:00)
[2017-06-11] MEDS ORDERED: SODIUM CHLORIDE 0.9% FLUSH 10 ML FLUSH IV FLUSH PRN ×2 (18:00→19:15)
--- NOTE | 2017-06-11 18:30 | PD ---
Physical Exam Date Seen by Provider: Jun 11, 2017 Time Seen by Provider: 18:00 Narrative Seen this patient with Romina Nicholas PA-C. This patient presents stating she was called and told to present to the emergency department because her INR was 10.0. The patient has a history of multiple micro-pulmonary emboli stemming from a be deep venous thrombosis of her right upper extremity. The patient states that she had her INR level were drawn yesterday and received a call today. Her INR here is actually greater than 16. Data Data Last Documented VS Vital Signs Date Time Temp Pulse Resp B/P Pulse Ox O2 Delivery O2 Flow Rate FiO2 06/11/17 16:40 98.9 98 20 154/100 96 Room Air Orders Type And Screen (06/11/17 16:57) Coag Profile (06/11/17 16:57) Complete Blood Count With Diff (06/11/17 16:57) Basic Metabolic Panel (Bmp) (06/11/17 16:57) ^ Insert Iv (06/11/17 16:57) Electrocardiogram (06/11/17 16:57) Ckmb (Isoenzyme) Profile (06/11/17 17:06) Troponin I (06/11/17 17:06) Phytonadione Inj (Vitamin K Inj) (06/11/17 18:00) Fresh Frozen Plasma (Ffp) (06/11/17 17:47) Blood Product Administration .UPON TRANSFUSION (06/11/17 17:47) Sodium Chlor 0.9% 250 Ml Inj (Ns 250 Ml (06/11/17 18:00) Admit Order (Ed Use Only) (06/11/17 17:54) Labs Laboratory Tests Test 06/11/17 06/11/17 17:00 17:47 White Blood Count 7.9 TH/MM3 Red Blood Count 4.18 MIL/MM3 Hemoglobin 11.1 GM/DL Hematocrit 33.0 % Mean Corpuscular Volume 79.0 FL Mean Corpuscular Hemoglobin 26.5 PG Mean Corpuscular Hemoglobin 33.6 % Concent Red Cell Distribution Width 19.2 % Platelet Count 358 TH/MM3 Mean Platelet Volume 9.1 FL Neutrophils (%) (Auto) 62.7 % Lymphocytes (%) (Auto) 27.6 % Monocytes (%) (Auto) 7.8 % Eosinophils (%) (Auto) 0.9 % Basophils (%) (Auto) 1.0 % Neutrophils # (Auto) 4.9 TH/MM3 Lymphocytes # (Auto) 2.2 TH/MM3 Monocytes # (Auto) 0.6 TH/MM3 Eosinophils # (Auto) 0.1 TH/MM3 Basophils # (Auto) 0.1 TH/MM3 CBC Comment DIFF FINAL Differential Comment Prothrombin Time GREATER THAN 180.0 SEC Prothromb Time International GREATER THAN Ratio 16.7 RATIO Activated Partial 120.7 SEC Thromboplast Time Sodium Level 138 MEQ/L Potassium Level 4.2 MEQ/L Chloride Level 104 MEQ/L Carbon Dioxide Level 26.0 MEQ/L Anion Gap 8 MEQ/L Blood Urea Nitrogen 17 MG/DL Creatinine 0.70 MG/DL Estimat Glomerular Filtration 102 ML/MIN Rate Random Glucose 84 MG/DL Calcium Level 8.8 MG/DL Blood Type A POSITIVE Antibody Screen NEGATIVE Blood Bank Comment [facility] Medical Record Reviewed: Yes Supervised Visit with LOIS: Yes Narrative Course [age]-year-old female with history of pulmonary emboli, who is on Coumadin, presents here at the request of her physician stating her INR was greater than 10. The patient denies any head pain or neck pain. The patient did have a stool Hemoccult tested positive for blood. Her hemoglobin is 11. She has been given 10 of vitamin K. She is also being transfused 2 units of FFP. She'll be admitted to the resident teaching service. Diagnosis Primary Impression: Supratherapeutic INR Additional Impression: GI bleed Qualified Code: K92.2 - Gastrointestinal hemorrhage, unspecified gastrointestinal hemorrhage type Admitting Information Admitting Physician Requests: Admit Ryan Mckeon MD Jun 11, 2017 18:30
[2017-06-11 18:38] LABS: CREATINE KINASE 67 U/L (26-192)
[2017-06-11 19:08] VITALS: BP 144/92; PULSE 92; RESP 20; O2SAT 100
[2017-06-11] MEDS ORDERED: ONDANSETRON HCL 4 MG/2 ML VIAL IV PRN (19:30)
[2017-06-11] MEDS ORDERED: PROTHROMBIN COMPLEX CONC 500 UNIT VIAL IV ONE (19:30)
[2017-06-11] MEDS ORDERED: PROTHROMBIN COMPLEX CONC INJ 1,500 UNITS in SYRINGE/BAG 1 EA IV ONE (19:30)
[2017-06-11 19:33] VITALS: O2SAT 98
[2017-06-11 19:33] LABS: ALT (GPT) 20 U/L (10-53); AST (GOT) 22 U/L (15-37)
--- NOTE | 2017-06-11 19:38 | HHI.HP ---
[facility] Service Family Medicine Primary Care Physician Loco , R3 Mary Kate Argueta, Admission Diagnosis supratherapeutic INR, GI bleed Diagnoses: International Travel<30 Days: No Contact w/Intl Traveler<30days: No Known Affected Area: No History of Present Illness Patient is a 27-year-old female past history significant for recent arm fracture, multiple small PEs presenting to the ED due to a supratherapeutic INR of 10.1. Patient is currently taking 5 mg of Coumadin daily at night. She is also taking Tylenol (2 extra strength tablets Q3hrs, tooth pain), [place] as needed, Protonix 40 mg po daily. She denies taking any additional medications or supplements. She denies history of any type of blood disorder or any family history of any type of blood disorder. She reports that her menstrual period ended. She currently denies any vaginal bleeding. She reports one episode of black stools today. She denies any other active bleeding. She has been bruising more easily and endorses bruises on her legs. She currently denies feeling short of breath. She has had centrally located chest pain that radiates to her back over the past 2 weeks. This is stable and has not changed. (Christine Patel MD R3) Review of Systems Constitutional: COMPLAINS OF: Change in appetite, DENIES: Fever, Chills Endocrine: DENIES: Abnorml menstrual pattern Eyes: DENIES: Blurred vision Ears, nose, mouth, throat: DENIES: Hearing loss Respiratory: DENIES: Shortness of breath Cardiovascular: COMPLAINS OF: Chest pain (has been stable for the past 2 weeks) Gastrointestinal: COMPLAINS OF: Black stools, DENIES: Bloody stools, Constipation, Diarrhea Genitourinary: DENIES: Abnormal vaginal bleeding Integumentary: COMPLAINS OF: Abnormal pigmentation (bruising), DENIES: Rash Hematologic/lymphatic: COMPLAINS OF: Bruising Neurologic: DENIES: Headache (Christine Patel MD R3) Past Family Social History Past Medical History Displaced right distal radius fracture s/p ORIF right distal radius with percutaneous pinning of distal radial ulnar joint by orthopedic surgery on 2016 GERD Iron deficiency anemia Past Surgical History ORIF right distal radius with percutaneous pinning of distal radial ulnar joint 04/10/2017 Reported Medications Reported Meds & Active Scripts Active Lortab (Hydrocodone-Acetaminophen) 7.5-325 Mg Tab 1 Tab PO Q4H PRN Lortab (Hydrocodone-Acetaminophen) 7.5-325 Mg Tab 1 Tab PO Q4H PRN Doxycycline Hyclate 100 Mg Cap 100 Mg PO BID Coumadin (Warfarin) 5 Mg Tab 5 Mg PO DAILY@1600 Pantoprazole (Pantoprazole Sodium) 40 Mg Tab 40 Mg PO DAILY Tylenol (Acetaminophen) 325 Mg Tab 650 Mg PO Q6H PRN Hydrocodone-Acetaminophen 5-325 mg Tab 1 Tab PO Q6H PRN Reported [iron ] 1 Tab PO DAILY (Christine Patel MD R3) Allergies: Coded Allergies: No Known Allergies (Verified , 06/11/17) Active Ordered Medications Inpatient Medications Acetaminophen (Tylenol) 650 mg Q4H PRN PO TEMP > 100.4; Start 06/11/17 at 18:00 ; Stop 06/11/17 at 18:19; Status DC Bisacodyl (Dulcolax Supp) 10 mg DAILY PRN RECTAL SEVERE CONSITIPATION; Start at 19:15 Lactulose (Lactulose Liq) 30 ml DAILY PRN PO SEVERE CONSITIPATION; Start at 18:00; Stop 06/11/17 at 18:19; Status DC Lactulose 30 ml 30 ml DAILY PRN PO SEVERE CONSITIPATION; Start 06/11/17 at 19: 15 Magnesium Hydroxide (Milk Of Magnesia Liq) 30 ml Q12H PRN PO MILD - MODERATE CONSTIPATION; Start 06/11/17 at 19:15 Naloxone HCl (Narcan Inj) 0.4 mg UNSCH PRN IV SEE LABEL COMMENTS; Start at 19:15 Ondansetron HCl (Zofran Inj) 4 mg Q6H PRN IV NAUSEA OR VOMITING; Start at 19:30 Pantoprazole Sodium (Protonix Inj) 40 mg Q12H IV PUSH ; Start 06/11/17 at 18:00 ; Stop 06/11/17 at 18:19; Status DC Pantoprazole Sodium/Sodium Chloride (Protonix Inj/NS Inj) 100 ml @ 10 mls/hr Q10H IV ; Start 06/11/17 at 21:30 Phytonadione 10 mg/Dextrose 51 ml @ 102 mls/hr ONCE ONCE IV Last administered on 06/11/17 18:15; Start 06/11/17 at 18:00; Stop 06/11/17 at 18:29 ; Status DC Prothrombin Complex Concent (Human) 1500 units/Syringe / Bag ml @ 0 mls/hr ONCE ONCE IV Last administered on 06/11/17 20:09; Start 06/11/17 at 19:30; Stop 06/11/17 at 19:31; Status DC Senna/Docusate Sodium (Monica-Colace) 1 tab BID PO ; Start 06/11/17 at 21:00 Sennosides (Senokot) 17.2 mg Q12H PRN PO MODERATE - SEVERE CONSTIPATION; Start 06/11/17 at 19:15 Sodium Chloride (NS 1000 ml Inj) 1,000 ml @ 150 mls/hr Q6H40M IV ; Start at 19:03 Sodium Chloride (NS 250 ml Inj) 250 ml @ 15 mls/hr ONCE ONCE IV ; Start at 18:00; Stop 06/12/17 at 10:39 Sodium Chloride (NS Flush) 2 ml BID IV FLUSH Last administered on 06/11/17 22: 30; Start 06/11/17 at 21:00 Sucralfate 1 gm 1 gm ACHS PO ; Start 06/11/17 at 21:00; Stop 06/11/17 at 21:00; Status DC Family History Mother: hysterectomy unknown reason Father: unknown Social History Lives at home with and two children Tobacco: denies Etoh: social occasions Illicit drug use: denies (Christine Patel MD R3) Physical Exam Vital Signs Vital Signs Date Time Temp Pulse Resp B/P Pulse Ox O2 Delivery O2 Flow Rate FiO2 06/11/17 19:08 92 20 144/92 100 Room Air 06/11/17 16:40 98.9 98 20 154/100 96 Room Air Physical Exam GENERAL: This is a well-nourished, well-developed patient, in no apparent distress. SKIN: Pt with several bruises on bilateral lower extremities, at various stages of healing. No other bruises appreciated. Cool and dry. HEAD: Atraumatic. Normocephalic. No temporal or scalp tenderness. EYES: Pupils equal round and reactive. Extraocular motions intact. No scleral icterus. No injection or drainage. ENT: Nose without bleeding, purulent drainage or septal hematoma. Throat without erythema, tonsillar hypertrophy or exudate. Uvula midline. Airway patent. Poor dentition. NECK: Trachea midline. No JVD or lymphadenopathy. Supple, nontender, no meningeal signs. CARDIOVASCULAR: Regular rate and rhythm without murmurs, gallops, or rubs. RESPIRATORY: Clear to auscultation. Breath sounds equal bilaterally. No wheezes , rales, or rhonchi. GASTROINTESTINAL: Abdomen soft, obese, non-tender, nondistended. No palpable masses. No guarding. MUSCULOSKELETAL: Extremities without clubbing, cyanosis, or edema. No joint tenderness, effusion, or edema noted. No calf tenderness. Negative Homans sign bilaterally. NEUROLOGICAL: Awake and alert. Cranial nerves II through XII intact. Motor and sensory grossly within normal limits. Five out of 5 muscle strength in all muscle groups. Normal speech. Laboratory Laboratory Tests Test 06/11/17 06/11/17 17:00 17:47 White Blood Count 7.9 Red Blood Count 4.18 Hemoglobin 11.1 Hematocrit 33.0 Mean Corpuscular Volume 79.0 Mean Corpuscular Hemoglobin 26.5 Mean Corpuscular Hemoglobin 33.6 Concent Red Cell Distribution Width 19.2 Platelet Count 358 Mean Platelet Volume 9.1 Neutrophils (%) (Auto) 62.7 Lymphocytes (%) (Auto) 27.6 Monocytes (%) (Auto) 7.8 Eosinophils (%) (Auto) 0.9 Basophils (%) (Auto) 1.0 Neutrophils # (Auto) 4.9 Lymphocytes # (Auto) 2.2 Monocytes # (Auto) 0.6 Eosinophils # (Auto) 0.1 Basophils # (Auto) 0.1 CBC Comment DIFF FINAL Differential Comment Prothrombin Time GREATER THAN 180.0 Prothromb Time International GREATER THAN Ratio 16.7 Activated Partial 120.7 Thromboplast Time Sodium Level 138 Potassium Level 4.2 Chloride Level 104 Carbon Dioxide Level 26.0 Anion Gap 8 Blood Urea Nitrogen 17 Creatinine 0.70 Estimat Glomerular Filtration 102 Rate Random Glucose 84 Calcium Level 8.8 Total Creatine Kinase 67 Troponin I LESS THAN 0.02 Blood Type A POSITIVE Antibody Screen NEGATIVE Blood Bank Comment (Christine Patel MD R3) Result Diagram: 06/11/17 1700 06/11/17 170 Assessment and Plan Assessment and Plan Pt is 27 year old female currently on Coumadin to treat multiple small PEs, presenting due to supratherapeutic INR greater than 16.7 with a positive Hemoccult in the ED. Code Status Full Discussed Condition With SDW Dr. Tamez, PGY1 DW Dr. Baum (Christine Patel MD R3) Attending Attestation THIS CASE WAS DISCUSSED WITH THE RESIDENT PHYSICIANS. I HAVE REVIEWED THE RECORD AND AGREE WITH THE ABOVE NOTE AND PLAN OF CARE WAS DISCUSSED. I HAVE AUTHORIZED THE ORDER FOR ADMISSION TO AN IN-PATIENT STATUS. (Rafael Clark MD) Problem List: (1) Supratherapeutic INR Status: Acute Plan: Patient currently on Coumadin 5 mg po daily. She had a lab result earlier today of a supratherapeutic INR of 10.1. When patient arrived to the ED INR had increased even further to greater than 16.7. Patient has been taking a significant amount of Tylenol due to tooth pain, which may cause an increase in INR. -Hematology consulted, appreciate recommendations. Case discussed with Dr. Baum -Per hematology recommendation 1,500 units of Kcentra ordered -Tylenol level low at 4.8 -Coumadin held -Additional anticoagulation contraindicated due to positive Hemoccult -Continue to monitor History: Vitamin K 10mg x1 2 units of FFP x1 (2) GI bleed Status: Acute Plan: Patient reports black stool 1 today. Hemoccult performed in the ED was positive. Hemoglobin stable at 11.1. -GI consulted, appreciate recommendations -We'll monitor H&H closely Q6hrs -Monitor for any additional bleeding -Protonix drip (3) Pulmonary emboli Status: Acute Plan: CTA performed on 05/23 significant for scattered segmental pulmonary emboli with an upper and lower lobe wrenches bilaterally. -Patient was prescribed Coumadin 5 mg by mouth daily, currently held, see plan above for supratherapeutic INR. -Monitor vitals closely, pt to be evaluated for any shortness of breath -Resume anticoagulation once INR is within normal range and there is no contraindication (GI bleed) (4) Anemia Status: Chronic Plan: Patient with history of iron deficiency anemia, she was prescribed an iron supplement that she is currently not taking. -Resume iron supplement once patient is able to tolerate PO -We'll check iron/TIBC profile (5) FEN/PPX Status: Acute Plan: Fluids: NS 150mls/hr Electrolytes: Within normal limits, continue to monitor next line nutrition: Nutrition: Patient currently nothing by mouth due to GI bleed DVT PPX: Contraindicated due to supratherapeutic INR and GI bleed GI PPX: Protonix drip (Christine Patel MD R3) Physician Certification 2 Midnight Certification Type: Admission for Inpatient Services Order for Inpatient Services The services are ordered in accordance with Medicare regulations or non- Medicare payer requirements, as applicable. In the case of services not specified as inpatient-only, they are appropriately provided as inpatient services in accordance with the 2-midnight benchmark. Estimated LOS (days): 2 2 days is the estimated time the patient will need to remain in the hospital, assuming treatment plan goals are met and no additional complications. Post-Hospital Plan: Not yet determined (Christine Patel MD R3) Problem Qualifiers (1) GI bleed: Qualified Code: K92.2 - Gastrointestinal hemorrhage, unspecified gastrointestinal hemorrhage type Christine Patel MD R3 Jun 11, 2017 19:38 Rafael Clark MD Jun 12, 2017 15:24
[2017-06-11 20:00] VITALS: BP 128/65; PULSE 103; RESP 20; TEMP 97; O2SAT 99
[2017-06-11] MEDS ORDERED: SUCRALFATE 1 GM/10 ML CUP PO SCH (21:00)
[2017-06-11] MEDS ORDERED: DOCUSATE SODIUM 50 MG/SENNA 8.6 MG TAB PO SCH ×2 (21:00)
[2017-06-11] MEDS ORDERED: SODIUM CHLORIDE 0.9% FLUSH 10 ML FLUSH IV FLUSH SCH (21:00)
[2017-06-11] MEDS: SODIUM CHLORIDE 0.9% FLUSH 10 ML FLUSH IV FLUSH SCH (22:30)
[2017-06-11 22:32] LABS: HEMATOCRIT 31.5 % (35.0-46.0); REVIEW FLAG FINAL
[2017-06-11 22:40] LABS: APTT (PATIENT) 30.9 SEC (24.3-30.1); INTERNATIONAL NORMALIZED RATIO 1.2 RATIO; PROTHROMBIN TIME - PATIENT 13.9 SEC (9.8-11.6)
[2017-06-11 23:53] VITALS: BP 137/66; PULSE 98; RESP 20; TEMP 97.4; O2SAT 97
[2017-06-11 23:54] VITALS: BP 137/66; PULSE 98; RESP 20; TEMP 97.4; O2SAT 97
[2017-06-11 23:59] LABS: AMPHETAMINE, URINE NEG (NEG); BARBITURATES, URINE NEG (NEG); COCAINE, URINE NEG (NEG)
[2017-06-12] VITALS (7 sets, daily range): BP systolic 102–155; BP diastolic 55–91; PULSE 84–99; RESP 16–20; TEMP 97.2–98.4; O2SAT 91–99
[2017-06-12] MEDS: SODIUM CHLOR 0.9% 1000 ML INJ 1,000 ML IV SCH ×4 (03:54→21:28)
[2017-06-12] MEDS: PANTOPRAZOLE INJ 80 MG in SODIUM CHLORIDE 0.9% INJ 100 ML IV SCH ×4 (03:55→23:50)
[2017-06-12] MEDS: SODIUM CHLORIDE 0.9% FLUSH 10 ML FLUSH IV FLUSH SCH ×2 (08:25→21:00)
--- NOTE | 2017-06-12 08:44 | HHI.FPPN ---
Subjective Remarks FM Attending Note: Patient seen and examined. S: Chart and all resident physician notes reviewed. In summary this is a 27 year old female who was admitted with an admission diagnosis of Supratherapeutic Inr, with possible Gi Bleeding. This patient has a past history significant for recent arm fracture with multiple associated small PEs presenting to the ED due to a supra-therapeutic INR of 10.1. Patient is currently taking 5 mg of Coumadin daily at night. She is also taking Tylenol ( 2 extra strength tablets Q3hrs, tooth pain), [place] as needed, Protonix 40 mg po daily. She denies taking any additional medications or supplements. She denies history of any type of blood disorder or any family history of any type of blood disorder. She reports that her menstrual period ended. She currently denies any vaginal bleeding. She reports one episode of black stools today. She denies any other active bleeding. She has been bruising more easily and endorses bruises on her legs. She currently denies feeling short of breath. She has had centrally located chest pain that radiates to her back over the past 2 weeks. This is stable and has not changed. Since her admission no significant change in symptoms has occurred. She's had no significant chest pain or shortness of breath. No abdominal pain is noted. She has a history of chronic episodic indigestion which she controls by using [id number] Prilosec. No history of peptic ulcer disease has been noted. The history of the present illness, past/family/social history and review of systems documented by Dr. Patel were reviewed and confirmed. Objective Vitals Vital Signs Date Time Temp Pulse Resp B/P Pulse Ox O2 Delivery O2 Flow Rate FiO2 06/12/17 08:00 98.3 86 16 102/55 91 06/12/17 08:00 97.3 97 20 149/90 97 06/12/17 04:41 96 06/12/17 00:50 97.5 93 20 120/59 96 06/12/17 00:50 97.5 93 20 120/59 96 06/11/17 23:54 97.4 98 20 137/66 97 06/11/17 23:53 97.4 98 20 137/66 97 06/11/17 20:00 97.0 103 20 128/65 99 06/11/17 19:33 98 21 06/11/17 19:08 92 20 144/92 100 Room Air 06/11/17 16:40 98.9 98 20 154/100 96 Room Air I/O 06/11/17 06/11/17 06/11/17 06/12/17 06/12/17 06/12/17 07:00 15:00 23:00 07:00 15:00 23:00 Intake Total 0 ml 1027 ml 0 ml Output Total 300 ml Balance -300 ml 1027 ml 0 ml Intake Oral 0 ml 0 ml 0 ml IV Total 627 ml FFP 400 ml Output Urine Total 300 ml # Voids 2 Result Diagram: 06/11/17215406/11/171699 Other Results Item Value Date Time Hemoglobin 11.1 GM/DL L 06/11/171699 Hemoglobin 10.0 GM/DL L 06/11/172154 Hemoglobin 9.3 GM/DL L 06/12/17 1250 Prothromb Time International Ratio GREATER THAN 16.7 RATIO *H 06/11/17 170 Prothromb Time International Ratio 1.2 RATIO 06/11/172154 Prothromb Time International Ratio 1.1 RATIO 06/12/17 1250 Iron Level 121 MCG/DL 06/12/17 1250 Total Iron Binding Capacity 372 MCG/DL 06/12/17 1250 Percent Iron Saturation 32.5 % 06/12/17 1250 Ferritin 31 NG/ML 06/12/17 1250 Total Bilirubin 0.4 MG/DL 06/12/17 1250 Aspartate Amino Transf (AST/SGOT) 22 U/L 06/11/17 1700 Alanine Aminotransferase (ALT/SGPT) 20 U/L 06/11/17 1700 Total Creatine Kinase 67 U/L 06/11/17 1700 Troponin I LESS THAN 0.02 NG/ML L 06/11/17 1700 Objective Remarks O. CONSTITUTIONAL/GEN: normally nourished, in NAD. EYES: conjunctiva normal, PERRLA, EOMI. ENT: Mouth and pharynx normal. NECK: thyroid midline, carotids symmetrical. LUNGS: clear A-P, respiratory effort is normal. CARDIOVASCULAR: RR without murmur or gallop. No significant edema. GI/ABD: soft without masses, without organomegaly. NEURO: No focal deficits. SKIN: color normal, no rashes noted. HEME/LYMPH: multiple bruises, no petechia or significant adenopathy MUSC: back is normal in appearance. Extremities are normal in appearance with a cast on the right forearm. PSYCH/MENTAL STATUS: Alert and oriented x 3. A/P Assessment and Plan Pt is 27 year old female currently on Coumadin to treat multiple small PEs, presenting due to supratherapeutic INR greater than 16.7 with a positive Hemoccult in the ED. Problem List: (1) Supratherapeutic INR Status: Acute Plan: Patient currently on Coumadin 5 mg po daily. She had a lab result earlier today of a supratherapeutic INR of 10.1. When patient arrived to the ED INR had increased even further to greater than 16.7. Patient has been taking a significant amount of Tylenol due to tooth pain, which may cause an increase in INR. -Hematology consulted, appreciate recommendations. Case discussed with Dr. Baum -Per hematology recommendation 1,500 units of Kcentra ordered -Tylenol level low at 4.8 -Coumadin held -Additional anticoagulation contraindicated due to positive Hemoccult -Continue to monitor History: Vitamin K 10mg x1 2 units of FFP x1 06/12/17 The patient's INR is now sub therapeutic. As noted she has had recent pulmonary emboli and anticoagulation is indicated. In view of the difficulty establishing a therapeutic range with warfarin will attempt to switch to a novel anticoagulant, Xarelto. If this is not possible will plan to start the patient on Lovenox and reintroduce warfarin. (2) GI bleed Status: Acute Plan: Patient reports black stool 1 today. Hemoccult performed in the ED was positive. Hemoglobin stable at 11.1. -GI consulted, appreciate recommendations -We'll monitor H&H closely Q6hrs -Monitor for any additional bleeding -Protonix drip 06/12/17 This patient's INR was suppra therapeutic which probably accounts for the G.I. bleeding. Will continue to observe and continue the proton pump inhibitor when discharged. For now further G.I. evaluation will be held. (3) Pulmonary emboli Status: Acute Plan: CTA performed on 05/23 significant for scattered segmental pulmonary emboli with an upper and lower lobe wrenches bilaterally. -Patient was prescribed Coumadin 5 mg by mouth daily, currently held, see plan above for supratherapeutic INR. -Monitor vitals closely, pt to be evaluated for any shortness of breath -Resume anticoagulation once INR is within normal range and there is no contraindication (GI bleed) (4) Anemia Status: Chronic Plan: Patient with history of iron deficiency anemia, she was prescribed an iron supplement that she is currently not taking. -Resume iron supplement once patient is able to tolerate PO -We'll check iron/TIBC profile (5) FEN/PPX Status: Acute Plan: Fluids: NS 150mls/hr Electrolytes: Within normal limits, continue to monitor next line nutrition: Nutrition: Patient currently nothing by mouth due to GI bleed DVT PPX: Contraindicated due to supratherapeutic INR and GI bleed GI PPX: Protonix drip Problem Qualifiers (1) GI bleed: Qualified Code: K92.2 - Gastrointestinal hemorrhage, unspecified gastrointestinal hemorrhage type Rafael Clark MD Jun 12, 2017 08:43
[2017-06-12] MEDS ORDERED: CYANOCOBALAMIN 1000 MCG/ML VIAL SQ ONE (12:00)
--- NOTE | 2017-06-12 12:16 | MB ---
cc: FINN MCLAIN MARIAAH R. MD DATE OF CONSULTATION: 06/12/2017 DATE OF : [address] Patel[address] CHIEF COMPLA[address] Patel requested consultation for Mrs. Verduzco regarding coagulopathy with supratherapeutic INR. HISTORY OF PRESENT ILLNESS Mrs. Verduzco is a 27 year-old woman, well known patient to [facility]. She was recently admitted with shortness of breath and pleuritic chest pains. Imaging study, CT angiogram from 05/23/17 shows scattered subsegmental pulmonary emboli within the upper and lower lobe branches bilaterally. She had hepatosplenomegaly noted incidentally. Upper extremity ultrasound showed no evidence of deep vein thromboses, lower extremity ultrasound shows no evidence of deep vein thromboses. Her risk is a recent surgery for a displaced right distal radius fracture. She had an open reduction internal fixation of the right distal radius on April 10, 2017. She had a hormonal exposure through an IUD which actually fell out at the time of her pulmonary embolism diagnosis. She was discharged home on Coumadin. She was apparently therapeutic INR 2.2 on discharge. Her INR was 5.4 on 05/31/2017. She reports no changes in her Coumadin dose during the laboratory evaluation. She did not hear from her physician and follow up a week later INR was 10. She was referred to the emergency room where her INR was 16.7. She gives a history of dark stools x2 days. She recently had a period which was light. She has some bruising in light of the GI bleeding and heme-positive stools in the emergency room. Hematology/oncology is called for the coagulopathy. She was treated promptly with Kcentra 1500 units. Her INR promptly returned to normal at 1.2. Repeat coags this morning was pending. Ms. Verduzco admits to being poor about her diet. She skipped meals. She denies any significant alcohol intake. She has been compliant with her Coumadin in checking her levels. However, she did not act upon the last level checked which was already elevated. She denies any other bleeding. No headaches. No vision changes. The rest of the review of systems is negative. PAST MEDICAL HISTORY: 1. Right distal radius fracture. 2. Gastroesophageal reflux. 3. Iron deficiency anemia. 4. Bilateral pulmonary embolism. 5. Supratherapeutic INR. PAST SURGICAL HISTORY: ORIF FAMILY HISTORY No significant family history of thrombotic events. Mother had a hysterectomy for unknown reasons. SOCIAL HISTORY She is , lives with her and two children. She denies any tobacco or illicit drug use. She drinks alcohol occasionally. ALLERGIES: NO KNOWN DRUG ALLERGIES. CURRENT MEDICATIONS: 1. Pantoprazole. 2. Zofran 3. Sodium chloride 4. Milk of Magnesia 5. Senokot. PHYSICAL EXAMINATION: VITAL SIGNS: Temperature 97.3, heart rate 97, respiratory rate 20, blood pressure 149/90, saturation 97%. Mrs. Verduzco is a well-developed, well-nourished obese woman in no acute distress. HEENT: Pupils are round, reactive to light and accommodation. Oropharynx clear. Dentition is poor. NECK: Supple. LUNGS: Clear. CARDIOVASCULAR: Normal rate and rhythm. ABDOMEN: Benign. LOWER EXTREMITIES: Some bruising. NEUROLOGIC: Nonfocal. LABORATORY DATA: Comprehensive metabolic panel is normal. Liver function normal. Troponin-I is negative. Hemoglobin is 11.1. MCV is low. Urine tox shows positive for opiates. ASSESSMENT/PLAN Mrs. Verduzco is a 27-year-old woman with history of obesity, gastroesophageal reflux, iron deficiency, recent distal radius fracture, status post ORIF. Her course is complicated by bilateral pulmonary embolism. She is on anticoagulant therapy with Coumadin for that. We discussed risk and benefit of anticoagulant therapy. We discussed menses abnormalities in the diet that would affect her INR. I suspect that 5 mg of Coumadin is too much. Her INR was greater than 5 from May 31. She did not change her dose until repeating an INR of 10.1. I recommend closer monitoring of her PT/INR with her primary physician. We discussed that she should ideally hear from her physician as to the results of the INR. She is interested in continuing with Coumadin. She will need to complete a course of anticoagulant therapy 3-6 months for her pulmonary embolism. This is presumably related to recent surgery. We will continue to monitor for GI bleeding. She reports that her last stool was not collected. She denies any significant change. I will check iron studies and offer additional parenteral iron therapy to improve her hemoglobin. Her hemoglobin on discharge from the hospital was 7.6 and currently 11.1 on admission. It decreased slightly to 10.0. PT/INR will be followed during her hospitalization. Her dose of Coumadin will be titrated once GI bleeding and hemoglobin is stabilized. Her questions were answered to her satisfaction. MD JORGE Hernandez/JAMEEL /11:02 AM /11:47 AM
--- NOTE | 2017-06-12 12:28 | EKG ---
Date Performed: 06/11/2017 Time Performed: 17:03:12 PTAGE: 27 years EKG: Sinus rhythm POSSIBLE RIGHT VENTRICULAR CONDUCTION DELAY MINIMAL VOLTAGE CRITERIA FOR LVH, CONSIDER NORMAL VARIAN T NONSPECIFIC T-WAVE ABNORMALITY BORDERLINE ECG PREVIOUS TRACING : 05/25/2017 22.15 Compared to prior tracing no significant change DOCTOR: Oswaldo Barrett Interpretating Date/Time 06/12/2017 12:24:52
[2017-06-12] MEDS ORDERED: IRON SUCROSE INJ 100 MG in SODIUM CHLORIDE 0.9% INJ 100 ML IV ONE (13:00)
[2017-06-12 13:14] LABS: AUTOMATED NEUTROPHIL # 3.3 TH/MM3 (1.8-7.7); BASOPHIL % 0.9 % (0.0-2.0); EOSINOPHIL % 0.7 % (0.0-4.0); HEMO FLAGS DIFF FINAL; LYMPH % 30.8 % (9.0-44.0); LYMPHOCYTE # 1.7 TH/MM3 (1.0-4.8); MEAN CELL VOLUME 79.9 FL (80.0-100.0); MEAN CORPUSCULAR HEMOGLOBIN 26.5 PG (27.0-34.0); MEAN CORPUSCULAR HGB CONC 33.1 % (32.0-36.0); MONO % 7.5 % (0.0-8.0); NEUT % 60.1 % (16.0-70.0); PLATELET COUNT 286 TH/MM3 (150-450); RED BLOOD COUNT 3.51 MIL/MM3 (4.00-5.30); RED CELL DISTRIBUTION WIDTH 19.3 % (11.6-17.2); WHITE BLOOD COUNT 5.6 TH/MM3 (4.0-11.0)
[2017-06-12 13:23] LABS: APTT (PATIENT) 29.1 SEC (24.3-30.1); INTERNATIONAL NORMALIZED RATIO 1.1 RATIO; PROTHROMBIN TIME - PATIENT 12.4 SEC (9.8-11.6)
--- NOTE | 2017-06-12 13:23 | HHI.DCPOC ---
Discharge Care Plan Diagnosis: (1) Supratherapeutic INR Goals to Promote Your Health * To prevent worsening of your condition and complications * To maintain your health at the optimal level Directions to Meet Your Goals Take your medications as prescribed Follow your dietary instruction Follow activity as directed Keep your appointments as scheduled Take your immunizations and boosters as scheduled If your symptoms worsen call your PCP, if no PCP go to Urgent Care Center or Emergency Room Smoking is Dangerous to Your Health. Avoid second hand smoke Call the 24-hour hour crisis hotline for domestic abuse at Nikko Tamez MD R1 Jun 12, 2017 13:23
[2017-06-12 13:33] LABS: ALT (GPT) 19 U/L (10-53); ANION GAP 9 MEQ/L (5-15); AST (GOT) 13 U/L (15-37); BICARBONATE 22.5 MEQ/L (21.0-32.0); BLOOD UREA NITROGEN 11 MG/DL (7-18); CHLORIDE 109 MEQ/L (98-107); GLOMERULAR FILTRATION RATE 135 ML/MIN (>89); SODIUM (NA) 140 MEQ/L (136-145)
[2017-06-12 13:34] LABS: TRANSFERRIN IRON PROFILE 266 MG/DL (200-360)
[2017-06-12 13:36] LABS: ALKALINE PHOSPHATASE 98 U/L (45-117); TOTAL BILIRUBIN ADULT 0.4 MG/DL (0.2-1.0)
--- NOTE | 2017-06-12 16:41 | HHI.FPPN ---
Addendum to progress note ADDENDUM Reason for addendum: Additonal documentation Additional information Patient was counseled bedside on her options for discharge. Patient was given the option to be discharged on Xarelto and follow-up closely outpatient. Patient states that she spoke with the computer video game designer today who recommended that she begin a low dose of Coumadin again. The patient likes the idea that the doctors can easily titrate and f/u the Coumadin (via INR levels) and she would prefer to be on Coumadin than to be on xarelto. Case discussed with Dr. Clark and Dr. Nelson, and decision made to start Lovenox bridging to warfarin; starting dose of Coumadin 5mg. plan to check INR in a.m. and re-discuss discharge planning. Malika Hensley MD R2 Jun 12, 2017 16:41
[2017-06-12] MEDS ORDERED: WARFARIN SOD 5 MG TAB PO ONE (16:45)
--- NOTE | 2017-06-12 16:55 | PD.CONS ---
HPI History of Present Illness This is a 27 year old who presented to the ED due to supratherapeutic INR of 10.1. She had been taking Coumadin 5 mg daily at night. Patient reports two episodes of black tarry stools yesterday. Hemoccult positive stools noted in ER. Patient denies active bleeding. Denies abdominal pain. Has mild nausea, but no emesis. Noted easy bruising on bilateral legs. PMH significant for recent arm fracture and multiple small PEs. (Ngozi Steve) PFSH Past Medical History -Displaced right distal radius fracture s/p ORIF right distal radius with percutaneous pinning of distal radial ulnar joint by orthopedic surgery on 2016 -GERD -Iron deficiency anemia -Multiple small PEs Past Surgical History -ORIF right distal radius with percutaneous pinning of distal radial ulnar joint 04/10/2017 (Ngozi Steve) Coded Allergies: No Known Allergies (Verified , 06/11/17) Medications Current Medications Medications (Trade) Dose Ordered Sig/Severino Route PRN Reason Start Time Stop Time Status Last Admin Dose Admin Sodium Chloride (NS 1000 ml Inj) 1,000 ml @ 150 mls/hr Q6H40M IV 06/11/17 19:03 06/12/17 14:58 Sodium Chloride (NS Flush) 2 ml UNSCH PRN IV FLUSH FLUSH AFTER USING IV ACCESS 06/11/17 19:15 Sodium Chloride (NS Flush) 2 ml BID IV FLUSH 06/11/17 21:00 06/11/17 22:30 Naloxone HCl (Narcan Inj) 0.4 mg UNSCH PRN IV SEE LABEL COMMENTS 06/11/17 19:15 Senna/Docusate Sodium (Monica-Colace) 1 tab BID PO 06/11/17 21:00 Hold Magnesium Hydroxide (Milk Of Magnesia Liq) 30 ml Q12H PRN PO MILD - MODERATE CONSTIPATION 06/11/17 19:15 Sennosides (Senokot) 17.2 mg Q12H PRN PO MODERATE - SEVERE CONSTIPATION 06/11/17 19:15 Bisacodyl (Dulcolax Supp) 10 mg DAILY PRN RECTAL SEVERE CONSITIPATION 06/11/17 19:15 Lactulose 30 ml 30 ml DAILY PRN PO SEVERE CONSITIPATION 06/11/17 19:15 Pantoprazole Sodium/Sodium Chloride (Protonix Inj/NS Inj) 100 ml @ 10 mls/hr Q10H IV 06/11/17 21:30 06/12/17 15:05 Ondansetron HCl (Zofran Inj) 4 mg Q6H PRN IV NAUSEA OR VOMITING 06/11/17 19:30 Patient Medication Teaching (Coumadin Booklet) 1 ONCE ONCE OTHER 06/12/17 16:30 06/12/17 16:31 Family History Noncontributory Social History Tobacco, denies ETOH, social Illicit drug, denies (Ngozi Steve) Review of Systems Constitutional: COMPLAINS OF: Change in appetite, DENIES: Diaphoretic episodes , Fatigue, Fever, Weight gain, Weight loss, Chills, Dizziness, Night Sweats Endocrine: DENIES: Polydipsia, Polyuria Eyes: DENIES: Blurred vision, Photosensitivity, Double Vision Ears, nose, mouth, throat: DENIES: Hearing loss, Vertigo, Oral lesions, Throat pain, Hoarseness Respiratory: DENIES: Cough, Wheezing, Hemoptysis, Sputum production, Shortness of breath Cardiovascular: DENIES: Chest pain, Palpitations, Syncope, Lower Extremity Edema, Orthopnea, Claudication Gastrointestinal: COMPLAINS OF: Black stools, Nausea, DENIES: Abdominal pain, Bloody stools, Constipation, Diarrhea, Vomiting, Difficulty Swallowing, Anorexia , Odynophagia, Swelling of Abdomen, Heartburn, Hematemesis Genitourinary: DENIES: Urinary frequency, Urinary incontinence, Urgency, Hematuria, Dysuria, Nocturia Musculoskeletal: DENIES: Joint pain, Muscle aches, Stiffness, Joint Swelling, Back pain, Neck pain Integumentary: DENIES: Abnormal pigmentation, Nail changes, Pruritus, Rash, Jaundice Hematologic/lymphatic: DENIES: Bruising, Lymphadenopathy Immunologic/allergic: DENIES: Eczema, Urticaria Neurologic: DENIES: Abnormal gait, Headache, Localized weakness, Paresthesias Psychiatric: DENIES: Anxiety, Confusion, Mood changes, Depression, Agitation, Suicidal Ideation (Ngozi Steve) GI Exam Vitals I&O Vital Signs Date Time Temp Pulse Resp B/P Pulse Ox O2 Delivery O2 Flow Rate FiO2 06/12/17 14:00 97.2 84 20 155/87 98 06/12/17 10:56 99 21 06/12/17 08:00 98.3 86 16 102/55 91 06/12/17 08:00 97.3 97 20 149/90 97 06/12/17 04:41 96 06/12/17 00:50 97.5 93 20 120/59 96 06/12/17 00:50 97.5 93 20 120/59 96 06/11/17 23:54 97.4 98 20 137/66 97 06/11/17 23:53 97.4 98 20 137/66 97 06/11/17 20:00 97.0 103 20 128/65 99 06/11/17 19:33 98 21 06/11/17 19:08 92 20 144/92 100 Room Air 06/11/17 16:40 98.9 98 20 154/100 96 Room Air I/O 06/11/17 06/11/17 06/11/17 06/12/17 06/12/17 06/12/17 07:00 15:00 23:00 07:00 15:00 23:00 Intake Total 0 ml 1027 ml 1021 ml Output Total 300 ml Balance -300 ml 1027 ml 1021 ml Intake Oral 0 ml 0 ml 0 ml IV Total 627 ml 1021 ml FFP 400 ml Output Urine Total 300 ml # Voids 2 Laboratory Test 06/11/17 06/11/17 06/11/17 06/11/17 17:00 17:47 21:55 22:35 White Blood Count 7.9 TH/MM3 Red Blood Count 4.18 MIL/MM3 Hemoglobin 11.1 GM/DL 10.0 GM/DL Hematocrit 33.0 % 31.5 % Mean Corpuscular Volume 79.0 FL Mean Corpuscular Hemoglobin 26.5 PG Mean Corpuscular Hemoglobin 33.6 % Concent Red Cell Distribution Width 19.2 % Platelet Count 358 TH/MM3 Mean Platelet Volume 9.1 FL Neutrophils (%) (Auto) 62.7 % Lymphocytes (%) (Auto) 27.6 % Monocytes (%) (Auto) 7.8 % Eosinophils (%) (Auto) 0.9 % Basophils (%) (Auto) 1.0 % Neutrophils # (Auto) 4.9 TH/MM3 Lymphocytes # (Auto) 2.2 TH/MM3 Monocytes # (Auto) 0.6 TH/MM3 Eosinophils # (Auto) 0.1 TH/MM3 Basophils # (Auto) 0.1 TH/MM3 CBC Comment DIFF FINAL Differential Comment Prothrombin Time GREATER THAN 13.9 SEC 180.0 SEC Prothromb Time International GREATER THAN 1.2 RATIO Ratio 16.7 RATIO Activated Partial 120.7 SEC 30.9 SEC Thromboplast Time Sodium Level 138 MEQ/L Potassium Level 4.2 MEQ/L Chloride Level 104 MEQ/L Carbon Dioxide Level 26.0 MEQ/L Anion Gap 8 MEQ/L Blood Urea Nitrogen 17 MG/DL Creatinine 0.70 MG/DL Estimat Glomerular Filtration 102 ML/MIN Rate Random Glucose 84 MG/DL Calcium Level 8.8 MG/DL Aspartate Amino Transf 22 U/L (AST/SGOT) Alanine Aminotransferase 20 U/L (ALT/SGPT) Total Creatine Kinase 67 U/L Troponin I LESS THAN 0.02 NG/ML Acetaminophen Level 4.8 MCG/ML Blood Type A POSITIVE Antibody Screen NEGATIVE Blood Bank Comment Urine Opiates Screen POS Urine Barbiturates Screen NEG Urine Amphetamines Screen NEG Urine Benzodiazepines Screen NEG Urine Cocaine Screen NEG Urine Cannabinoids Screen NEG Test 06/12/17 12:50 White Blood Count 5.6 TH/MM3 Red Blood Count 3.51 MIL/MM3 Hemoglobin 9.3 GM/DL Hematocrit 28.0 % Mean Corpuscular Volume 79.9 FL Mean Corpuscular Hemoglobin 26.5 PG Mean Corpuscular Hemoglobin 33.1 % Concent Red Cell Distribution Width 19.3 % Platelet Count 286 TH/MM3 Mean Platelet Volume 9.2 FL Neutrophils (%) (Auto) 60.1 % Lymphocytes (%) (Auto) 30.8 % Monocytes (%) (Auto) 7.5 % Eosinophils (%) (Auto) 0.7 % Basophils (%) (Auto) 0.9 % Neutrophils # (Auto) 3.3 TH/MM3 Lymphocytes # (Auto) 1.7 TH/MM3 Monocytes # (Auto) 0.4 TH/MM3 Eosinophils # (Auto) 0.0 TH/MM3 Basophils # (Auto) 0.0 TH/MM3 CBC Comment DIFF FINAL Differential Comment Prothrombin Time 12.4 SEC Prothromb Time International 1.1 RATIO Ratio Activated Partial 29.1 SEC Thromboplast Time Sodium Level 140 MEQ/L Potassium Level 4.0 MEQ/L Chloride Level 109 MEQ/L Carbon Dioxide Level 22.5 MEQ/L Anion Gap 9 MEQ/L Blood Urea Nitrogen 11 MG/DL Creatinine 0.55 MG/DL Estimat Glomerular Filtration 135 ML/MIN Rate Random Glucose 78 MG/DL Calcium Level 8.5 MG/DL Iron Level 121 MCG/DL Total Iron Binding Capacity 372 MCG/DL Percent Iron Saturation 32.5 % Ferritin 31 NG/ML Total Bilirubin 0.4 MG/DL Aspartate Amino Transf 13 U/L (AST/SGOT) Alanine Aminotransferase 19 U/L (ALT/SGPT) Alkaline Phosphatase 98 U/L Total Protein 7.3 GM/DL Albumin 3.6 GM/DL Ethyl Alcohol Level LESS THAN 3 MG/DL Physical Examination HEENT: PERRLA; normocephalic; atraumatic; no jaundice. NECK: Neck is supple, no JVD, no lymphadenopathy. CHEST: CTA CARDIAC: RRR with no murmur gallop or rubs. ABDOMEN: Soft, obese nondistended, nontender; no hepatosplenomegaly; bowel sounds active EXTREMITIES: No clubbing, cyanosis, or edema. Cast at right forearm SKIN: Scattered bruising APPRENTICE TECHNICIAN: No focal deficits; alert and oriented x 3 (Ngozi Steve) Assessment and Plan Plan ASSESSMENT -GI bleed, black stool noted yesterday with Hemoccult positive stools in ED. HH 11. on admission, 9.01/25 today. GI bleed likely secondary to supratherapeutic INR -Supratherapeutic INR, Hematology following. Coumadin on hold. Patient's INR is now sub therapeutic. -Pulmonary emboli, CTA performed on 05/23 significant for scattered segmental pulmonary emboli with an upper and lower lobe wrenches bilaterally Coumadin on hold due to GI bleed. PLAN - Monitor HH, transfuse as needed - Protonix drip - Notify GI of active bleeding - Consider EGD/Colonoscopy if symptoms persist - Monitor labs - Supportive care - Further recommendations to follow based on results of above. Patient seen by Dr. Bullock and myself and this note is written on his behalf. (Ngozi Steve) Physician Comments Patient seen and examined Agree with above Continue with current supportive care Monitor labs Patient will need an EGD tomorrow on Lovenox (Royal Bullock MD) Ngozi Steve Jun 12, 2017 16:55 Royal Bullock MD Jun 12, 2017 17:39 Royal Bullock MD Jun 12, 2017 17:39
[2017-06-12] MEDS: ENOXAPARIN SODIUM 120 MG/0.8 ML SYRINGE SQ SCH (17:45)
[2017-06-12] MEDS ORDERED: ACETAMINOPHEN/HYDROcodone 325 MG/5 MG TAB PO PRN (22:45)
[2017-06-12] MEDS: ZOLPIDEM TARTRATE 5 MG TAB PO PRN (23:23)
[2017-06-12] MEDS: ACETAMINOPHEN 325 MG TAB PO PRN (23:24)
[2017-06-13] VITALS: BP 122/78; PULSE 87; RESP 20; TEMP 97.7; O2SAT 99
[2017-06-13] MEDS: ENOXAPARIN SODIUM 120 MG/0.8 ML SYRINGE SQ SCH ×2 (06:00→16:34)
[2017-06-13 06:13] LABS: HEMATOCRIT 27.4 % (35.0-46.0); MEAN CELL VOLUME 80.7 FL (80.0-100.0); MEAN CORPUSCULAR HEMOGLOBIN 26.5 PG (27.0-34.0); MEAN CORPUSCULAR HGB CONC 32.8 % (32.0-36.0); PLATELET COUNT 253 TH/MM3 (150-450); RED CELL DISTRIBUTION WIDTH 19.6 % (11.6-17.2); REVIEW FLAG FINAL; WHITE BLOOD COUNT 5.4 TH/MM3 (4.0-11.0)
[2017-06-13 06:21] LABS: INTERNATIONAL NORMALIZED RATIO 1.2 RATIO; PROTHROMBIN TIME - PATIENT 13.5 SEC (9.8-11.6)
[2017-06-13 06:44] LABS: BICARBONATE 27.3 MEQ/L (21.0-32.0); POTASSIUM 3.8 MEQ/L (3.5-5.1)
[2017-06-13] MEDS: SODIUM CHLOR 0.9% 1000 ML INJ 1,000 ML IV SCH ×2 (06:54→11:03)
[2017-06-13] MEDS ORDERED: LACTATED RINGER'S 1000 ML IV PRN (07:00)
[2017-06-13 08:35] VITALS: BP 137/85; PULSE 91; RESP 20; TEMP 97.7; O2SAT 98
[2017-06-13] MEDS: SODIUM CHLORIDE 0.9% FLUSH 10 ML FLUSH IV FLUSH SCH ×2 (09:00→19:22)
--- NOTE | 2017-06-13 09:02 | HHI.FPPN ---
Subjective Remarks Mrs. Verduzco woke up with a headache today, 10/10 located in the frontal regions. Associated with blurry vision initially that has resolved. Had BM this AM that was semi-formed, and not black/tarry, and without bright red blood. Denies any new chest pain, SOB, fevers, chills. Asking when she can go home. (Jayy Thomason MD, R3) Objective Vitals Vital Signs Date Time Temp Pulse Resp B/P Pulse Ox O2 Delivery O2 Flow Rate FiO2 06/13/17 08:35 97.7 91 20 137/85 98 06/13/17 00:00 97.7 87 20 122/78 99 06/12/17 20:00 98.4 99 20 126/91 99 06/12/17 16:00 98.1 91 20 140/90 98 06/12/17 14:00 97.2 84 20 155/87 98 06/12/17 10:56 99 21 I/O 06/12/17 06/12/17 06/12/17 06/13/17 06/13/17 06/13/17 07:00 15:00 23:00 07:00 15:00 23:00 Intake Total 1027 ml 1021 ml 830 ml 954 ml Output Total 800 ml 350 ml Balance 1027 ml 1021 ml 30 ml 604 ml Intake Oral 0 ml 0 ml 360 ml 0 ml IV Total 627 ml 1021 ml 470 ml 954 ml FFP 400 ml Output Urine Total 800 ml 350 ml # Voids 2 (Jayy Thomason MD, R3) Result Diagram: 06/13/17 0536 06/13/17 0536 Objective Remarks O. CONSTITUTIONAL/GEN: normally nourished, in NAD. EYES: conjunctiva normal, PERRLA, EOMI. ENT: Mouth and pharynx normal. NECK: thyroid midline, carotids symmetrical. LUNGS: clear A-P, respiratory effort is normal. CARDIOVASCULAR: RR without murmur or gallop. No significant edema. GI/ABD: soft without masses, without organomegaly. NEURO: No focal deficits. SKIN: color normal, no rashes noted. HEME/LYMPH: multiple bruises, no petechia or significant adenopathy MUSC: back is normal in appearance. Extremities are normal in appearance with a cast on the right forearm. PSYCH/MENTAL STATUS: Alert and oriented x 3. (Jayy Thomason MD, R3) A/P Assessment and Plan Pt is 27 year old female currently on Coumadin to treat multiple small PEs, presenting due to supratherapeutic INR greater than 16.7 with a positive Hemoccult in the ED. (Jayy Thomason MD, R3) Attending Attestation Patient seen and examined with at the bedside Case reviewed and discussed with Dr. Thomason Agree with plan of care as discussed with me and documented in the resident note. (Nancy Berrios MD) Problem List: (1) Supratherapeutic INR Status: Acute Plan: On 05/21/17, the patient suffered a distal radius fracture that was surgically corrected. After this procedure she developed scattered pulmonary emboli and was put on Coumadin 5 mg daily. Patient hospitalized on 06/11 with an INR of 16.7, which normalized to 1.2 with 2 units of fresh frozen plasma and 10 mg of vitamin K. During hospitalization, she was started on therapeutic Lovenox at 120 mg twice a day. This was held on 06/13 in the a.m., for an endoscopy for concurrent GI bleeding. Will bridge from Lovenox to Coumadin, to a therapeutic INR of 2.0 - 3.0. Currently on Coumadin 5 mg daily. -Hematology consulted, appreciate recommendations. -Tylenol level low at 4.8 -Continue to monitor (2) GI bleed Status: Acute Plan: Patient reports black stool 1. Hemoccult performed in the ED was positive on 06/11. Hemoglobin stable at 11.1 on admission --> 9.0 today, however stable for past 24 hours. -GI consulted, appreciate recommendations. Endoscopy today 06/13/17. -We'll monitor H&H closely -Monitor for any additional bleeding -Protonix drip (3) Pulmonary emboli Status: Acute Plan: CTA performed on 05/23 significant for scattered segmental pulmonary emboli with an upper and lower lobe wrenches bilaterally. -Patient was prescribed Coumadin 5 mg by mouth daily, currently held, see plan above for supratherapeutic INR. -Monitor vitals closely, pt to be evaluated for any shortness of breath -Resume anticoagulation once INR is within normal range and there is no contraindication (GI bleed) (4) Anemia Status: Chronic Plan: Patient with history of iron deficiency anemia, she was prescribed an iron supplement that she is currently not taking. -S/P IV iron x 1 (5) FEN/PPX Status: Acute Plan: Fluids: NS 150mls/hr - d/c once tolerating PO. Lungs clear on exam. Electrolytes: Within normal limits, continue to monitor next line nutrition: Nutrition: Patient currently nothing by mouth due to GI bleed DVT PPX: Contraindicated due to supratherapeutic INR and GI bleed GI PPX: Protonix drip wdw Dr. Berrios (6) Headache Status: Acute Plan: May be chronic tension type headache that the patient has had before. May be 2/2 to decrease PO intake. Electrolytes at goal. If persistent despite Fioricet x 1 and supportive care, may consider CT scan to rule out hemorrhage vs. embolism. Neurologically intact today on exam and without deficits. (Jayy Thomason MD, R3) Problem Qualifiers (1) GI bleed: Qualified Code: K92.2 - Gastrointestinal hemorrhage, unspecified gastrointestinal hemorrhage type Jayy Thomason MD, R3 Jun 13, 2017 09:02 Nancy Berrios MD Jun 13, 2017 13:22
[2017-06-13] MEDS ORDERED: ACETAMIN 325 MG/BUTALBITAL 50 MG/CAFFEINE 40 MG TAB PO ONE (09:45)
[2017-06-13] MEDS ORDERED: ACETAMINOPHEN 1000 MG/100 ML VIAL IV ONE (11:58)
[2017-06-13] MEDS ORDERED: PROPOFOL 200 MG/20 ML AMP IV ONE (12:25)
--- NOTE | 2017-06-13 12:37 | PD.PROCEDR ---
GI Procedure REFERRING PHYSICIAN Dr. Clark PROCEDURE PERFORMED EGD INDICATION FOR PROCEDURE Melena PROCEDURE: The procedure, risks and benefits were discussed with Ms. Verduzco and informed consent was obtained. Anesthesia sedated her with Diprivan. She was placed in the left lateral decubitus position. EGD: The Pentax videoscope was introduced through the oropharynx and advanced to the second portion of the duodenum under direct visualization. Retroflexion was performed in the stomach. FINDINGS: Esophagus this was normal The stomach this was normal The duodenum this was normal ESTIMATED BLOOD LOSS: None SPECIMENS REMOVED: None COMPLICATIONS: None IMPRESSION: Normal EGD PLAN: No lesion identified for the melenic bleed Advance diet and continue anticoagulation May consider capsule endoscopy if there is any persistent anemia or further bleeding This can be done on an outpatient basis Monitor labs for now Royal Bullock MD Jun 13, 2017 12:37
[2017-06-13 13:38] VITALS: O2SAT 99
[2017-06-13] MEDS ORDERED: ENALAPRILAT 1.25 MG/ML VIAL IV PUSH PRN (15:15)
[2017-06-13] MEDS ORDERED: hydrALAZINE HCL 10 MG TAB PO PRN (15:15)
[2017-06-13] MEDS: PANTOPRAZOLE INJ 80 MG in SODIUM CHLORIDE 0.9% INJ 100 ML IV SCH (15:21)
[2017-06-13 16:00] VITALS: BP 155/96; PULSE 92; RESP 17; TEMP 97.2; O2SAT 99
[2017-06-13] MEDS ORDERED: WARFARIN SOD 2.5 MG TAB PO SCH (16:00)
[2017-06-13] MEDS: WARFARIN SOD 2.5 MG TAB PO SCH (16:34)
[2017-06-13 18:20] VITALS: O2SAT 99
[2017-06-13] MEDS: PANTOPRAZOLE SOD 40 MG DELAYED RELEASE TAB PO SCH (19:23)
[2017-06-13 20:00] VITALS: BP 151/103; PULSE 84; RESP 16; TEMP 98.5; O2SAT 99
[2017-06-13] MEDS: ZOLPIDEM TARTRATE 5 MG TAB PO PRN (23:52)
[2017-06-13] MEDS: ACETAMINOPHEN 325 MG TAB PO PRN (23:53)
[2017-06-14] VITALS: BP 126/88; PULSE 87; RESP 16; TEMP 97.6; O2SAT 100
[2017-06-14] MEDS: ENOXAPARIN SODIUM 120 MG/0.8 ML SYRINGE SQ SCH ×2 (05:09→17:12)
[2017-06-14 06:04] LABS: BASOPHIL % 0.6 % (0.0-2.0); EOSINOPHIL # 0.1 TH/MM3 (0-0.4); EOSINOPHIL % 1.1 % (0.0-4.0); HEMATOCRIT 27.9 % (35.0-46.0); HEMO FLAGS DIFF FINAL; LYMPH % 38.4 % (9.0-44.0); LYMPHOCYTE # 2.3 TH/MM3 (1.0-4.8); MEAN CORPUSCULAR HEMOGLOBIN 25.7 PG (27.0-34.0); MEAN CORPUSCULAR HGB CONC 31.7 % (32.0-36.0); NEUT % 50.9 % (16.0-70.0); PLATELET COUNT 262 TH/MM3 (150-450); RED BLOOD COUNT 3.45 MIL/MM3 (4.00-5.30); RED CELL DISTRIBUTION WIDTH 19.7 % (11.6-17.2); WHITE BLOOD COUNT 5.9 TH/MM3 (4.0-11.0)
[2017-06-14 06:05] LABS: INTERNATIONAL NORMALIZED RATIO 1.8 RATIO; PROTHROMBIN TIME - PATIENT 20.4 SEC (9.8-11.6)
[2017-06-14 06:25] LABS: ANION GAP 7 MEQ/L (5-15); AST (GOT) 13 U/L (15-37); BICARBONATE 25.1 MEQ/L (21.0-32.0); BLOOD UREA NITROGEN 10 MG/DL (7-18); CHLORIDE 108 MEQ/L (98-107); GLOMERULAR FILTRATION RATE 100 ML/MIN (>89); POTASSIUM 3.6 MEQ/L (3.5-5.1); SODIUM (NA) 140 MEQ/L (136-145)
[2017-06-14 06:26] LABS: ALT (GPT) 15 U/L (10-53)
[2017-06-14 06:29] LABS: ALKALINE PHOSPHATASE 91 U/L (45-117); TOTAL BILIRUBIN ADULT 0.3 MG/DL (0.2-1.0)
[2017-06-14 08:00] VITALS: BP 131/86; PULSE 90; RESP 16; TEMP 97.2; O2SAT 99
--- NOTE | 2017-06-14 08:47 | HHI.FPPN ---
Subjective Remarks Patient feeling much better today. She denies any persistent headaches. She denies any bleeding currently. Her pain is well controlled. She feels comfortable giving herself Lovenox injections upon discharge. She understands the importance of following up with her PCP, and checking her INR daily until the level becomes therapeutic. Lyric, her nurse, has provided education on Lovenox injections during her previous hospitalization and will review this with her prior to d/c. Case management, has called home health, and will try to arrange home health upon discharge. Objective Vitals Vital Signs Date Time Temp Pulse Resp B/P Pulse Ox O2 Delivery O2 Flow Rate FiO2 06/14/17 08:00 97.2 90 16 131/86 99 06/14/17 00:53 18 06/14/17 00:00 97.6 87 16 126/88 100 06/13/17 20:00 98.5 84 16 151/103 99 06/13/17 18:20 99 21 06/13/17 16:00 97.2 92 17 155/96 99 06/13/17 13:38 99 06/13/17 13:00 98.6 74 16 191/98 100 06/13/17 12:45 98.8 73 16 198/103 98 I/O 06/13/17 06/13/17 06/13/17 06/14/17 06/14/17 06/14/17 06:59 14:59 22:59 06:59 14:59 22:59 Intake Total 954 ml 569 ml 0 ml Output Total 350 ml Balance 604 ml 569 ml 0 ml Intake Oral 0 ml IV Total 954 ml 569 ml 0 ml Output Urine Total 350 ml # Voids 2 1 1 Result Diagram: 06/14/17 0516 06/14/17 0516 Objective Remarks O. CONSTITUTIONAL/GEN: normally nourished, in NAD. EYES: conjunctiva normal, PERRLA, EOMI. ENT: Mouth and pharynx normal. NECK: thyroid midline, carotids symmetrical. LUNGS: clear A-P, respiratory effort is normal. CARDIOVASCULAR: RR without murmur or gallop. No significant edema. GI/ABD: soft without masses, without organomegaly. NEURO: No focal deficits. SKIN: color normal, no rashes noted. HEME/LYMPH: multiple bruises, no petechia or significant adenopathy MUSC: back is normal in appearance. Extremities are normal in appearance with a cast on the right forearm. PSYCH/MENTAL STATUS: Alert and oriented x 3. A/P Assessment and Plan Pt is 27 year old female currently on Coumadin to treat multiple small PEs, presenting due to supratherapeutic INR greater than 16.7 with a positive Hemoccult in the ED. Problem List: (1) Supratherapeutic INR Status: Acute Plan: On 05/21/17, the patient suffered a distal radius fracture that was surgically corrected. After this procedure she developed scattered pulmonary emboli and was put on Coumadin 5 mg daily. Patient hospitalized on 06/11 with an INR of 16.7, which normalized to 1.2 with 2 units of fresh frozen plasma and 10 mg of vitamin K. During hospitalization, she was started on therapeutic Lovenox at 120 mg twice a day. This was held on 06/13 in the a.m., for an endoscopy for concurrent GI bleeding, and resumed after the procedure. Will bridge from Lovenox to Coumadin , to a therapeutic INR of 2.0 - 3.0. Currently on Coumadin 2.5 mg daily, with an INR today 06/14 of 1.8. -Hematology consulted, recommend proceeding with the above therapy. -Tylenol level low at 4.8 -Continue to monitor (2) GI bleed Status: Acute Plan: Patient reports black stool 1. Hemoccult performed in the ED was positive on 06/11. No sources of GI bleeding on endoscopy. GI, recommends a capsule endoscopy if continuing to have bleeding. He medical in stable over the past 3 days at approximately 9.0 g/dL. She denies any melena, hematochezia , or abdominal pain. Transitioned to pantoprazole 40 mg PO twice a day. (3) Pulmonary emboli Status: Acute Plan: CTA performed on 05/23 significant for scattered segmental pulmonary emboli with an upper and lower lobe wrenches bilaterally. -Patient was prescribed Coumadin 5 mg by mouth daily, currently held, see plan above for supratherapeutic INR. -Monitor vitals closely, pt to be evaluated for any shortness of breath -Anticoagulation as above. (4) Headache Status: Acute Plan: Resolved with Fioricet. No neurologic deficits. (5) Anemia Status: Chronic Plan: Patient with history of iron deficiency anemia, she was prescribed an iron supplement that she is currently not taking. -S/P IV iron x 1 and Vit B12 IM x 1. (6) FEN/PPX Status: Acute Plan: Fluids: PO fluids Electrolytes: Within normal limits. Nutrition: Tolerating whole meals. DVT PPX: On Lovenox and Coumadin. GI PPX: Protonix by mouth. wdw Dr. Berrios Problem Qualifiers (1) GI bleed: Qualified Code: K92.2 - Gastrointestinal hemorrhage, unspecified gastrointestinal hemorrhage type Jayy Thomason MD, R3 Jun 14, 2017 08:47 Qualified Code: K92.2 - Gastrointestinal hemorrhage, unspecified gastrointestinal hemorrhage type Jayy Thomason MD, R3 Jun 14, 2017 08:47
[2017-06-14] MEDS: PANTOPRAZOLE SOD 40 MG DELAYED RELEASE TAB PO SCH (09:03)
[2017-06-14] MEDS: SODIUM CHLORIDE 0.9% FLUSH 10 ML FLUSH IV FLUSH SCH (09:03)
--- NOTE | 2017-06-14 10:02 | HHI.GIFU ---
Subjective Remarks Resting in bed. No n/v. No abdominal pain. No further episodes of melena. Tolerating diet. (Kenna Patel) Objective Vitals I&O Vital Signs Date Time Temp Pulse Resp B/P Pulse Ox O2 Delivery O2 Flow Rate FiO2 06/14/17 08:00 97.2 90 16 131/86 99 06/14/17 00:53 18 06/14/17 00:00 97.6 87 16 126/88 100 06/13/17 20:00 98.5 84 16 151/103 99 06/13/17 18:20 99 21 06/13/17 16:00 97.2 92 17 155/96 99 06/13/17 13:38 99 06/13/17 13:00 98.6 74 16 191/98 100 06/13/17 12:45 98.8 73 16 198/103 98 I/O 06/13/17 06/13/17 06/13/17 06/14/17 06/14/17 06/14/17 06:59 14:59 22:59 06:59 14:59 22:59 Intake Total 954 ml 569 ml 0 ml Output Total 350 ml Balance 604 ml 569 ml 0 ml Intake Oral 0 ml IV Total 954 ml 569 ml 0 ml Output Urine Total 350 ml # Voids 2 1 1 Laboratory Laboratory Tests Test 06/14/17 05:16 White Blood Count 5.9 Red Blood Count 3.45 Hemoglobin 8.9 Hematocrit 27.9 Mean Corpuscular Volume 81.0 Mean Corpuscular Hemoglobin 25.7 Mean Corpuscular Hemoglobin 31.7 Concent Red Cell Distribution Width 19.7 Platelet Count 262 Mean Platelet Volume 8.7 Neutrophils (%) (Auto) 50.9 Lymphocytes (%) (Auto) 38.4 Monocytes (%) (Auto) 9.0 Eosinophils (%) (Auto) 1.1 Basophils (%) (Auto) 0.6 Neutrophils # (Auto) 3.0 Lymphocytes # (Auto) 2.3 Monocytes # (Auto) 0.5 Eosinophils # (Auto) 0.1 Basophils # (Auto) 0.0 CBC Comment DIFF FINAL Differential Comment Prothrombin Time 20.4 Prothromb Time International 1.8 Ratio Sodium Level 140 Potassium Level 3.6 Chloride Level 108 Carbon Dioxide Level 25.1 Anion Gap 7 Blood Urea Nitrogen 10 Creatinine 0.71 Estimat Glomerular Filtration 100 Rate Random Glucose 92 Calcium Level 8.4 Total Bilirubin 0.3 Aspartate Amino Transf 13 (AST/SGOT) Alanine Aminotransferase 15 (ALT/SGPT) Alkaline Phosphatase 91 Total Protein 6.7 Albumin 3.4 Physical Exam HEENT: Normocephalic; atraumatic; no jaundice. CHEST: CTA CARDIAC: RRR ABDOMEN: Soft, nondistended, nontender; no hepatosplenomegaly; bowel sounds are present in all four quadrants. EXTREMITIES: Right wrist brace SKIN: Normal; no rash; no jaundice. PROJECT MANAGEMENT DIRECTOR: No focal deficits; alert and oriented times three. (Kenna Patel) Assessment and Plan Plan ASSESSMENT - Upper GIB with melena and Hemoccult positive stools in ED. S/P EGD (06/13/17)- --> normal egd. HH stable 8.9/27.9. No n/v. No abdominal pain. No further melena. Tolerating diet. - Supratherapeutic INR, resolved. Per hematology - Pulmonary emboli, CTA performed on 05/23 significant for scattered segmental pulmonary emboli with an upper and lower lobe wrenches bilaterally She had INR > 16.7 on admission, but this is now 1.8. Coumadin. PLAN - JENNIFER - PPI - If further melena or worsening anemia, consider capsule endoscopy as outpatient - FU SAGE 2 weeks - Patient seen by Dr. Bullock and myself and this note is written on his behalf. (Kenna Patel) Physician Comments Patient seen and examined Agree with above Continue current supportive care Monitor labs Follow-up with GI post discharge Consider capsule endoscopy if any further bleeding or persistent anemia ( Royal Bullock MD) Kenna Patel Jun 14, 2017 10:02 Royal Bullock MD Jun 14, 2017 18:14
[2017-06-14 10:23] VITALS: O2SAT 98
[2017-06-14] MEDS ORDERED: COUM2.5T PO (11:42)
[2017-06-14] MEDS ORDERED: SENN1TAB PO (11:42)
[2017-06-14] MEDS ORDERED: PANT40TA3 PO (11:42)
[2017-06-14] MEDS ORDERED: TRAM50TA PO (11:46)
[2017-06-14 12:00] VITALS: BP 137/81; PULSE 88; RESP 17; TEMP 96.9; O2SAT 100
[2017-06-14] MEDS ORDERED: ENOX120P SQ (13:23)
--- NOTE | 2017-06-14 13:26 | HHI.DS ---
Discharge Summary Admission Date Jun 11, 2017 at 17:56 Admitting Diagnosis supratherapeutic INR, GI bleed (1) Supratherapeutic INR Plan: On 05/21/17, the patient suffered a distal radius fracture that was surgically corrected. After this procedure she developed scattered pulmonary emboli and was put on Coumadin 5 mg daily. Patient hospitalized on 06/11 with an INR of 16.7, which normalized to 1.2 with 2 units of fresh frozen plasma and 10 mg of vitamin K. During hospitalization, she was started on therapeutic Lovenox at 120 mg twice a day. This was held on 06/13 in the a.m., for an endoscopy for concurrent GI bleeding, and resumed after the procedure. Will bridge from Lovenox to Coumadin , to a therapeutic INR of 2.0 - 3.0. Currently on Coumadin 2.5 mg daily, with an INR today 06/14 of 1.8. -Hematology consulted, recommend proceeding with the above therapy. -Tylenol level low at 4.8 -Continue to monitor (2) GI bleed Plan: Patient reports black stool 1. Hemoccult performed in the ED was positive on 06/11. No sources of GI bleeding on endoscopy. GI, recommends a capsule endoscopy if continuing to have bleeding. He medical in stable over the past 3 days at approximately 9.0 g/dL. She denies any melena, hematochezia , or abdominal pain. Transitioned to pantoprazole 40 mg PO twice a day. (3) Pulmonary emboli Plan: CTA performed on 05/23 significant for scattered segmental pulmonary emboli with an upper and lower lobe wrenches bilaterally. -Patient was prescribed Coumadin 5 mg by mouth daily, currently held, see plan above for supratherapeutic INR. -Monitor vitals closely, pt to be evaluated for any shortness of breath -Anticoagulation as above. (4) Headache Plan: Resolved with Fioricet. No neurologic deficits. (5) Anemia Plan: Patient with history of iron deficiency anemia, she was prescribed an iron supplement that she is currently not taking. -S/P IV iron x 1 and Vit B12 IM x 1. (6) FEN/PPX Plan: Fluids: PO fluids Electrolytes: Within normal limits. Nutrition: Tolerating whole meals. DVT PPX: On Lovenox and Coumadin. GI PPX: Protonix by mouth. wdw Dr. Berrios Brief History Patient is a 27-year-old female past history significant for recent arm fracture, multiple small PEs presenting to the ED due to a supratherapeutic INR of 10.1. Patient is currently taking 5 mg of Coumadin daily at night. She is also taking Tylenol (2 extra strength tablets Q3hrs, tooth pain), Sentinel as needed, Protonix 40 mg po daily. She denies taking any additional medications or supplements. She denies history of any type of blood disorder or any family history of any type of blood disorder. She reports that her menstrual period ended. She currently denies any vaginal bleeding. She reports one episode of black stools today. She denies any other active bleeding. She has been bruising more easily and endorses bruises on her legs. She currently denies feeling short of breath. She has had centrally located chest pain that radiates to her back over the past 2 weeks. This is stable and has not changed. CBC/BMP: 06/14/17 0516 06/14/17 0516 Significant Findings Laboratory Tests Test 06/11/17 06/11/17 06/11/17 06/12/17 17:00 21:55 22:35 12:50 Hemoglobin 11.1 GM/DL 10.0 GM/DL 9.3 GM/DL (11.6-15.3) (11.6-15.3) (11.6-15.3) Hematocrit 33.0 % 31.5 % 28.0 % (35.0-46.0) (35.0-46.0) (35.0-46.0) Mean Corpuscular Volume 79.0 FL 79.9 FL (80.0-100.0) (80.0-100.0) Mean Corpuscular Hemoglobin 26.5 PG 26.5 PG (27.0-34.0) (27.0-34.0) Red Cell Distribution Width 19.2 % 19.3 % (11.6-17.2) (11.6-17.2) Prothrombin Time GREATER THAN 13.9 SEC 12.4 SEC 180.0 SEC (9.8-11.6) (9.8-11.6) (9.8-11.6) Prothromb Time International GREATER THAN Ratio 16.7 RATIO Activated Partial 120.7 SEC 30.9 SEC Thromboplast Time (24.3-30.1) (24.3-30.1) Troponin I LESS THAN 0.02 NG/ML (0.02-0.05) Acetaminophen Level 4.8 MCG/ML (10.0-30.0) Urine Opiates Screen POS (NEG) Red Blood Count 3.51 MIL/MM3 (4.00-5.30) Chloride Level 109 MEQ/L (98-107) Aspartate Amino Transf 13 U/L (15-37) (AST/SGOT) Test 06/13/17 06/14/17 05:36 05:16 Red Blood Count 3.40 MIL/MM3 3.45 MIL/MM3 (4.00-5.30) (4.00-5.30) Hemoglobin 9.0 GM/DL 8.9 GM/DL (11.6-15.3) (11.6-15.3) Hematocrit 27.4 % 27.9 % (35.0-46.0) (35.0-46.0) Mean Corpuscular Hemoglobin 26.5 PG 25.7 PG (27.0-34.0) (27.0-34.0) Red Cell Distribution Width 19.6 % 19.7 % (11.6-17.2) (11.6-17.2) Prothrombin Time 13.5 SEC 20.4 SEC (9.8-11.6) (9.8-11.6) Chloride Level 110 MEQ/L 108 MEQ/L (98-107) (98-107) Calcium Level 8.1 MG/DL 8.4 MG/DL (8.5-10.1) (8.5-10.1) Mean Corpuscular Hemoglobin 31.7 % Concent (32.0-36.0) Monocytes (%) (Auto) 9.0 % (0.0-8.0) Aspartate Amino Transf 13 U/L (15-37) (AST/SGOT) PE at Discharge O. CONSTITUTIONAL/GEN: normally nourished, in NAD. EYES: conjunctiva normal, PERRLA, EOMI. ENT: Mouth and pharynx normal. NECK: thyroid midline, carotids symmetrical. LUNGS: clear A-P, respiratory effort is normal. CARDIOVASCULAR: RR without murmur or gallop. No significant edema. GI/ABD: soft without masses, without organomegaly. NEURO: No focal deficits. SKIN: color normal, no rashes noted. HEME/LYMPH: multiple bruises, no petechia or significant adenopathy MUSC: back is normal in appearance. Extremities are normal in appearance with a cast on the right forearm. PSYCH/MENTAL STATUS: Alert and oriented x 3. Hospital Course Patient is a 27-year-old female, who is status post ORIF on 05/21 for a right sided distal radial fracture. This was complicated by scattered pulmonary emboli, and she was discharged home at that time with 5 mg of Coumadin. She was readmitted to the hospital on 06/11, with a super therapeutic INR of greater than 16.8. She was given 2 units of fresh frozen plasma, as well as vitamin K. She quickly corrected to an INR 1.2. She was also found to be Hemoccult positive. Her hemoglobin was stable at 9.0-11.0 throughout her hospitalization. She was scoped by gastroenterology, and was not found to have any abnormalities/source of bleeding. They recommended a capsule endoscopy in 2 weeks for further evaluation. She will will be discharged home on therapeutic Lovenox 120 mg twice a day, and she was given instructions on how to inject this at home. She will also continue on 2.5 mg of Coumadin daily, while avoiding Tylenol. She hasn't INR for 1 day after discharge, as well as 2- 3 days after discharge. She understands the importance of following up with her PCP to check this level. She will need to be on anticoagulation for 3-6 months. Pt Condition on Discharge: Stable Discharge Disposition: Discharge Home Discharge Instructions DIET: Follow Instructions for: As Tolerated, No Restrictions Activities you can perform: Regular-No Restrictions New Medications: Enoxaparin Inj (Lovenox Inj) 120 Mg/0.8 Ml Syr 120 MG SQ DAILY Stop once INR is therapeutic 2.0-3.0 Blood Clot Prevention #30 Ref 0 SYRINGE Tramadol (Tramadol) 50 Mg Tab 50 MG PO Q8H PRN PAIN #45 Ref 0 TAB Pantoprazole (Pantoprazole) 40 Mg Tab 40 MG PO BID #60 Ref 0 TAB Sennosides-Docusate Sodium (Senna Plus 8.6-50 mg) 1 Tab Tab 1 TAB PO BID #30 Ref 0 TAB Warfarin (Coumadin) 2.5 Mg Tab 2.5 MG PO DAILY@16 #30 Ref 0 TAB Discontinued Medications: Acetaminophen (Tylenol) 325 Mg Tab 650 MG PO Q6H PRN PAIN SCALE 1 TO 4 #30 Ref 0 TAB Doxycycline Hyclate (Doxycycline Hyclate) 100 Mg Cap 100 MG PO BID #20 CAP Hydrocodone-Acetaminophen (Hydrocodone-Acetaminophen) 5-325 mg Tab 1 TAB PO Q6H PRN PAIN SCALE 6 TO 10 #30 TAB Hydrocodone-Acetaminophen (Lortab) 7.5-325 Mg Tab 1 TAB PO Q4H PRN PAIN #20 Ref 0 TAB Hydrocodone-Acetaminophen (Lortab) 7.5-325 Mg Tab 1 TAB PO Q4H PRN PAIN #20 Ref 0 TAB Pantoprazole (Pantoprazole) 40 Mg Tab 40 MG PO DAILY #30 TAB Warfarin (Coumadin) 5 Mg Tab 5 MG PO DAILY@1600 #30 TAB ([iron ]) 1 TAB PO DAILY Jayy Thomason MD, R3 Jun 14, 2017 13:26
[2017-06-14 16:00] VITALS: BP 130/90; PULSE 90; RESP 17; TEMP 97.2; O2SAT 100
[2017-06-14] MEDS: WARFARIN SOD 2.5 MG TAB PO SCH (16:00)
--- NOTE | 2017-06-14 16:33 | RADRPT ---
EXAM DATE/TIME: 06/14/2017 16:07 [facility] COMPARISON: No previous studies available for comparison. INDICATIONS : Pain right leg. MEDICAL HISTORY : Gastroesophageal reflux disease. . Anemia. Pulmonary embolism. SURGICAL HISTORY : ORIF right distal radius with percutaneous pinning. ENCOUNTER: Subsequent ACUITY: 3 days PAIN SCORE: 3/10 LOCATION: Right leg. TECHNIQUE: Venous ultrasound of the leg was performed from the inguinal ligament to the proximal calf. Real-carley e, color Doppler and spectral tracing, compression and augmentation techniques were used. FINDINGS: There is normal compressibility of the deep venous system from the inguinal region to the proximal ca lf. No echogenic clot is seen in the lumen of the common femoral, femoral, popliteal, and posterior tibial veins. There is a normal response of the venous system to proximal and distal augmentation an d respiration. CONCLUSION: No DVT. Hardik Smith MD on June 14, 2017 at 16:30 Board Certified Radiologist. This report was verified electronically.
[2017-06-15] MEDS ORDERED: ESOM1CAP16 PO (08:59)
== END 2017-06-14 17:22 | disposition home or self-care (01) | DRG 378 ==
LOC: NEPC 16:38 → NEDA 17:56 → N07B 21:06
PROVIDERS: ADMIT Family Medicine; ATTEND Family Medicine
PROC: 30233K1 Transfusion of Nonautologous Frozen Plasma into Peripheral Vein, Percutaneous Approach (ICD-10-PCS; principal; 2017-06-11)
PROC: 0DJ08ZZ Inspection of Upper Intestinal Tract, Via Natural or Artificial Opening Endoscopic (ICD-10-PCS; 2017-06-13)
DX: K92.1 Melena (principal); Z68.41 Body mass index [BMI] 40.0-44.9, adult; E66.9 Obesity, unspecified; K21.9 Gastro-esophageal reflux disease without esophagitis; Z86.711 Personal history of pulmonary embolism; Z79.01 Long term (current) use of anticoagulants; R79.1 Abnormal coagulation profile; D50.9 Iron deficiency anemia, unspecified; K59.00 Constipation, unspecified
CPT/HCPCS: 36430; 76937; 80048; 80053; 80307; 82550; 82728; 83540; 83550; 84450; 84460; 84484; 85014; 85018; 85025; 85027; 85610; 85730; 86850; 86900; 86901; 86927; 93005; 93971; 99285; C9113; C9132; J0131; J1650; J1756; J3420; J3430; J7030; P9017

== ENCOUNTER 2017-06-18 20:50 | Emergency (ER) | payer MEDICAID ==
[~2017-06-18] VITALS: Ht 170.2 cm; Wt 125.0 kg
[~2017-06-18 20:50] MED LIST changes: +COUM2.5T PO; -COUM5TAB PO; -DOXY100C PO; +ENOX120P SQ; +ESOM1CAP16 PO; -HYDR-3516 PO; -HYDR-3534 PO; -PANT40TA3 PO; +SENN1TAB PO; +TRAM50TA PO; -TYLE325T PO; -iron PO
[2017-06-18 21:04] VITALS: BP 124/88; PULSE 94; RESP 16; O2SAT 98
[2017-06-23] MEDS ORDERED: ESOM1CAP16 PO (13:28)
[2017-06-27] MEDS ORDERED: TRAM50TA PO (11:52)
[2017-07-01] MEDS ORDERED: PANT40TA3 PO (16:39)
[2017-07-06] MEDS ORDERED: COUM2.5T PO (10:06)
[2017-07-06] MEDS ORDERED: MECL12.574 PO (10:13)
[2017-08-03] MEDS ORDERED: ALBU0.08 NEB (15:23)
[2017-08-03] MEDS ORDERED: COUM2.5T PO (16:58)
[2017-08-10] MEDS ORDERED: PANT40TA3 PO (11:07)
[2017-08-22] MEDS ORDERED: ALBU0.08 NEB (08:07)
== END 2017-06-18 22:15 | disposition left against medical advice (07) ==
LOC: NED 20:50
DX: R68.89 Other general symptoms and signs (principal)
CPT/HCPCS: 99281

== ENCOUNTER 2017-06-18 21:48 | Emergency (ER) | payer MEDICAID ==
[~2017-06-18] VITALS: Ht 170.2 cm; Wt 119.0 kg
[2017-06-18 21:59] VITALS: BP 141/96; PULSE 86; RESP 18; TEMP 97.9; O2SAT 99
[2017-06-18 22:16] VITALS: BP 142/85; PULSE 85; RESP 16; O2SAT 100
--- NOTE | 2017-06-18 22:40 | PD ---
HPI Chief Complaint: Skin Problem Time Seen by Provider: 22:36 Travel History International Travel<30 days: No Contact w/Intl Traveler<30days: No Traveled to known affect area: No History of Present Illness HPI 27-year-old female presents to the emergency department for complaint of increasing ecchymotic area to the left lower quadrant of the abdominal wall where she previously had received a Lovenox injection approximately 5 days ago. Patient states that she was stopped off of Lovenox administration 3 days ago and has been on warfarin for 3 days. Patient had previously been on warfarin 5 mg daily is now on warfarin 2.5 mg daily. Patient was diagnosed with PE postoperatively and was recently hospitalized 06/11 to 06/14 due to supra- therapeutic INR levels noted 06/11/17. Patient does not report any increased bruising except to the one location of the left lower abdominal wall;, other areas of Lovenox injection 2 did not show any increasing or expanding ecchymosis. No report of lightheadedness, dizziness, shortness of breath, gingival bleeding, epistaxis, hemoptysis, hematemesis, melena, hematochezia, or hematuria. During 06/11 admission had had INR of 16 and hem-occult positive stool , subsequent normal EGD, no further dark stools. PFSH Past Medical History Narrative Medical PE warfarin therapy anemia asthma right forearm fracture repair GERD; occasional alcohol use: No significant reviewed Hx Anticoagulant Therapy: Yes (WARFARIN) Anemia: Yes Asthma: Yes Autoimmune Disease: No Anxiety: No Depression: No Cancer: No Cardiovascular Problems: No Chemotherapy: No Diabetes: No Diminished Hearing: No Endocrine: No Gastrointestinal Disorders: Yes GERD: Yes Genitourinary: No Immune Disorder: No Implanted Vascular Access Dvce: Yes Musculoskeletal: Yes Neurologic: No Psychiatric: No Reproductive: No Respiratory: Yes Immunizations Current: Yes Radiation Therapy: No Thyroid Disease: No ?: Not : 2 Para: 2 Past Surgical History Body Medical Devices: right radius percutanous pinning Joint Replacement: Yes (RODS/PLATE) Other Surgery: Yes Social History Alcohol Use: Yes (RARE) Tobacco Use: No Substance Use: No Allergies-Medications (Allergen,Severity, Reaction): Coded Allergies: No Known Allergies (Verified , 06/18/17) Reported Meds & Prescriptions Reported Meds & Active Scripts Active Esomeprazole DR 40 Mg Capdr 40 Mg PO DAILY Lovenox Inj (Enoxaparin Sodium) 120 Mg/0.8 Ml Syr 120 Mg SQ DAILY Stop once INR is therapeutic 2.0-3.0 Tramadol (Tramadol HCl) 50 Mg Tab 50 Mg PO Q8H PRN Coumadin (Warfarin) 2.5 Mg Tab 2.5 Mg PO DAILY@16 Senna Plus 8.6-50 mg (Sennosides-Docusate Sodium) 1 Tab Tab 1 Tab PO BID Review of Systems Except as stated in HPI: all other systems reviewed are Neg General / Constitutional: No: Fever HENT: No: Lightheadedness, Congestion, Nosebleed, Gingival Bleeding Cardiovascular: No: Chest Pain or Discomfort Respiratory: No: Shortness of Breath, Hemoptysis Gastrointestinal: Positive: Abdominal Pain, No: Nausea, Vomiting, Hematemesis , Hematochezia Genitourinary: No: Hematuria Musculoskeletal: No: Pain Skin: No Rash Neurologic: No: Weakness, Dizziness Psychiatric: Positive: Anxiety Hematologic/Lymphatic: Positive: Easy Bruising Physical Exam Narrative GENERAL: Well-developed well-nourished obese female in no acute distress no respiratory distress SKIN: Warm and dry. HEAD: Normocephalic. EYES: No scleral icterus. No injection or drainage. NECK: Supple, trachea midline. No JVD or lymphadenopathy. CARDIOVASCULAR: Regular rate and rhythm without murmurs, gallops, or rubs. RESPIRATORY: Breath sounds equal bilaterally. No accessory muscle use. GASTROINTESTINAL: Abdomen soft, non-tender, nondistended. Left lower quadrant abdominal wall area of ecchymosis 12 x 7 cm with central 5 x 2 symmetrical mass/ hematoma nontender to palpation MUSCULOSKELETAL: No cyanosis, or edema. BACK: Nontender without obvious deformity. No CVA tenderness. Data Data Last Documented VS Vital Signs Date Time Temp Pulse Resp B/P Pulse Ox O2 Delivery O2 Flow Rate FiO2 06/19/17 02:48 77 152/92 99 Room Air 06/19/17 01:20 16 06/18/17 21:59 97.9 Orders Prothrombin Time / Inr (Pt) (06/18/17 22:36) Complete Blood Count With Diff (06/18/17 22:36) ^ Saline Lock (06/19/17 00:08) Iohexol 350 Inj (Omnipaque 350 Inj) (06/19/17 01:33) Ct Abd/Pel W Iv Contrast(Rout) (06/19/17 ) Labs Laboratory Tests Test 06/18/17 22:50 White Blood Count 7.7 TH/MM3 Red Blood Count 3.63 MIL/MM3 Hemoglobin 9.4 GM/DL Hematocrit 29.0 % Mean Corpuscular Volume 79.9 FL Mean Corpuscular Hemoglobin 26.0 PG Mean Corpuscular Hemoglobin 32.5 % Concent Red Cell Distribution Width 20.0 % Platelet Count 236 TH/MM3 Mean Platelet Volume 9.0 FL Neutrophils (%) (Auto) 55.5 % Lymphocytes (%) (Auto) 34.9 % Monocytes (%) (Auto) 8.2 % Eosinophils (%) (Auto) 1.0 % Basophils (%) (Auto) 0.4 % Neutrophils # (Auto) 4.2 TH/MM3 Lymphocytes # (Auto) 2.7 TH/MM3 Monocytes # (Auto) 0.6 TH/MM3 Eosinophils # (Auto) 0.1 TH/MM3 Basophils # (Auto) 0.0 TH/MM3 CBC Comment DIFF FINAL Differential Comment Prothrombin Time 30.7 SEC Prothromb Time International 2.7 RATIO Ratio MDM Medical Decision Making Medical Screen Exam Complete: Yes Emergency Medical Condition: Yes Medical Record Reviewed: Yes Interpretation(s) CBC & BMP Diagram 06/18/17 22:50 Vital Signs Date Time Temp Pulse Resp B/P Pulse Ox O2 Delivery O2 Flow Rate FiO2 06/18/17 22:16 85 16 142/85 100 06/18/17 21:59 97.9 86 18 141/96 99 INR: 2.7 Differential Diagnosis Supratherapeutic INR, anemia, abdominal wall hematoma Narrative Course Specimens collected and sent for INR and hemoglobin; vital signs in normal range except for elevation of blood pressure @ 23:13 hemoglobin is stable at 9.4 compared to labs from 06/11 admission At 11:54 PM INR 2.7 therapeutic; discussed with the patient CT abdomen and pelvis to be ordered to evaluate soft tissue abdominal wall and patient unwilling to have study performed or to stay for imaging; took coumadin at 9:30 PM; repeat VS Patient has changed her mind and now agrees to have CT preformed --BMP not collected as just had normal range bun/cr 06/11-06/14; LMP: beginning of May 2:44 AM patient is still waiting on imaging results which is currently unavailable as it is on "hold" status per the reading radiologist and unable to be reviewed and reading is pending; patient is aware of this and states that she has to leave even without the reading results that she knows that she has a cyst in her pelvis and that she will have to leave without the reading. Diagnosis Primary Impression: Superficial bruising of abdominal wall Qualified Code: S30.1XXA - Contusion of abdominal wall, initial encounter Additional Impression: Anticoagulated on Coumadin Referrals: Primary Care Physician 2 days Patient Instructions: General Instructions Additional Instructions: Apply ice packs/cool compresses to area intermittently over the next 12-24 hours Recheck times one day INR/hemoglobin Return to the emergency department for any concerns or change in condition Follow-up with your primary care provider as scheduled May take acetaminophen/Tylenol as needed for minor discomfort or for fever 100.4 F or greater Med/Other Pt SpecificInfo: No Change to Meds Disposition: 01 DISCHARGE HOME Condition: Stable Veronika Ferreira MD Jun 18, 2017 22:40
[2017-06-18 23:03] LABS: AUTOMATED NEUTROPHIL # 4.2 TH/MM3 (1.8-7.7); BASOPHIL % 0.4 % (0.0-2.0); EOSINOPHIL # 0.1 TH/MM3 (0-0.4); HEMO FLAGS DIFF FINAL; LYMPH % 34.9 % (9.0-44.0); LYMPHOCYTE # 2.7 TH/MM3 (1.0-4.8); MEAN CELL VOLUME 79.9 FL (80.0-100.0); MEAN CORPUSCULAR HGB CONC 32.5 % (32.0-36.0); MONO % 8.2 % (0.0-8.0); NEUT % 55.5 % (16.0-70.0); PLATELET COUNT 236 TH/MM3 (150-450); RED BLOOD COUNT 3.63 MIL/MM3 (4.00-5.30); WHITE BLOOD COUNT 7.7 TH/MM3 (4.0-11.0)
[2017-06-18 23:14] LABS: INTERNATIONAL NORMALIZED RATIO 2.7 RATIO; PROTHROMBIN TIME - PATIENT 30.7 SEC (9.8-11.6)
[2017-06-19] VITALS: BP 138/98; PULSE 74; RESP 16; O2SAT 99
[2017-06-19 01:20] VITALS: BP 151/99; PULSE 78; RESP 16
[2017-06-19] MEDS ORDERED: IOHEXOL 350 MG/ML 10 ML VIAL (for RAD DIAG) IV ONE (01:33)
--- NOTE | 2017-06-19 02:43 | RADRPT ---
EXAM DATE/TIME: 06/19/2017 00:58 [facility] COMPARISON: CT ABDOMEN & PELVIS W CONTRAST, May 23, 2017, 8:52. INDICATIONS : Bruising at LOVENOX injection sites near and below umbillicus on the left side. Patient states she f eels lumps there. IV CONTRAST: 95 cc Omnipaque 350 (iohexol) IV ORAL CONTRAST: No oral contrast ingested. RADIATION DOSE: 22.18 CTDIvol (mGy) MEDICAL HISTORY : Gastroesophageal reflux disease. SURGICAL HISTORY : None. ENCOUNTER: Initial ACUITY: 3 days PAIN SCALE: 0/10 LOCATION: Left lower quadrant TECHNIQUE: Volumetric scanning of the abdomen and pelvis was performed. Using automated exposure control and ad justment of the mA and/or kV according to patient size, radiation dose was kept as low as reasonably achievable to obtain optimal diagnostic quality images. DICOM format image data is available electro nically for review and comparison. FINDINGS: LOWER LUNGS: The visualized lower lungs are clear. LIVER: Homogeneous density without lesion. There is no dilation of the biliary tree. No calcified gallston es. SPLEEN: Normal size without lesion. PANCREAS: Within normal limits. KIDNEYS: Normal in size and shape. There is no mass, stone or hydronephrosis. ADRENAL GLANDS: Within normal limits. VASCULAR: There is no aortic aneurysm. BOWEL/MESENTERY: The stomach, small bowel, and colon demonstrate no acute abnormality. There is no free intraperitone al air or fluid. ABDOMINAL WALL: Symmetric, well-rounded soft tissue densities in the subcutaneous fatty tissues of the lower abdomen may represent subcutaneous injection sites. RETROPERITONEUM: There is no lymphadenopathy. BLADDER: No wall thickening or mass. REPRODUCTIVE: Prominence of the endometrial stripe probably related to phase of menses. 2.1 cm cyst associated with the right ovary. INGUINAL: There is no lymphadenopathy or hernia. MUSCULOSKELETAL: Within normal limits for patient age. CONCLUSION: 1. 2.1 cm cyst associated with the right ovary and prominence of the endometrial stripe all likely re lated to phase of menses. 2. Probable subcutaneous injection sites in the lower abdomen bilaterally. 3. Otherwise negative with no acute intraperitoneal or pelvic process to explain current clinical sym ptoms. Jean Paul Wynn MD on June 19, 2017 at 2:40 Board Certified Radiologist. This report was verified electronically.
[2017-06-19 02:48] VITALS: BP 152/92; PULSE 77; O2SAT 99
[2017-06-23] MEDS ORDERED: ESOM1CAP16 PO (13:28)
[2017-06-27] MEDS ORDERED: TRAM50TA PO (11:52)
[2017-07-01] MEDS ORDERED: PANT40TA3 PO (16:39)
[2017-07-06] MEDS ORDERED: COUM2.5T PO (10:06)
[2017-07-06] MEDS ORDERED: MECL12.574 PO (10:13)
[2017-08-03] MEDS ORDERED: ALBU0.08 NEB (15:23)
[2017-08-03] MEDS ORDERED: COUM2.5T PO (16:58)
[2017-08-10] MEDS ORDERED: PANT40TA3 PO (11:07)
[2017-08-22] MEDS ORDERED: ALBU0.08 NEB (08:07)
== END 2017-06-19 03:13 | disposition home or self-care (01) ==
LOC: PHED 21:48
DX: S30.1XXA Contusion of abdominal wall, initial encounter (principal); X58.XXXA Exposure to other specified factors, initial encounter; Z79.01 Long term (current) use of anticoagulants
CPT/HCPCS: 74177; 85025; 85610; 99285; Q9967; 74160

== ENCOUNTER 2018-03-22 15:17 | Emergency (ER) | payer MEDICAID, OTHER ==
[~2018-03-22 15:17] MED LIST changes: +CITA20TA4 PO; -COUM2.5T PO; +COUM5TAB PO; -ENOX120P SQ; -ESOM1CAP16 PO; +MECL12.574 PO; +PANT40TA3 PO; -SENN1TAB PO; -TRAM50TA PO; +VENTAER INH
[2018-03-22 15:29] VITALS: BP 147/72; PULSE 91; RESP 20; TEMP 98.8; O2SAT 100
--- NOTE | 2018-03-22 15:54 | PD ---
HPI Chief Complaint: Cardiac Complaint Time Seen by Provider: 15:32 Travel History International Travel<30 days: No Contact w/Intl Traveler<30days: No Traveled to known affect area: No History of Present Illness HPI This is a 27-year-old female who is sent by her primary care physician to rule out PE. The patient reports that 2 days ago her son fell down some steps. She became anxious and immediately developed chest pain and mid back pain. She describes it as a sharp/pressure pain which is worse with movement. Endorses some dyspnea associated with it. She saw her primary care physician today and was sent here to rule out PE. She does have a history of provoked PE in 2017. She was on Coumadin for 6 months but has been off of it for the past 6 months. Denies any cough, congestion, lower extremity edema, recent travel, recent surgery, abdominal pain, nausea or vomiting, diaphoresis. Currently on her menstrual period. No other complaints. PFSH Past Medical History Hx Anticoagulant Therapy: Yes (WARFARIN) Anemia: Yes Asthma: Yes Autoimmune Disease: No Anxiety: No Depression: No Cancer: No Cardiovascular Problems: No Chemotherapy: No Diabetes: No Diminished Hearing: No Endocrine: No Gastrointestinal Disorders: Yes GERD: Yes Genitourinary: No Immune Disorder: No Implanted Vascular Access Dvce: Yes Musculoskeletal: Yes Neurologic: No Psychiatric: No Reproductive: No Respiratory: Yes (PE BILAT) Immunizations Current: Yes Radiation Therapy: No Thyroid Disease: No : 2 Para: 2 Past Surgical History Body Medical Devices: right radius percutanous pinning Joint Replacement: Yes (RODS/PLATE) Other Surgery: Yes Social History Alcohol Use: Yes (RARE) Tobacco Use: No Substance Use: No Allergies-Medications (Allergen,Severity, Reaction): Coded Allergies: No Known Allergies (Verified Adverse Reaction, Unknown, 03/22/18) Reported Meds & Prescriptions Reported Meds & Active Scripts Active Prilosec (Omeprazole Magnesium) 20 Mg Tab 1 Tab PO DAILY Reported Multiple Vitamin 1 Tab 1 Tab PO DAILY Omeprazole 20 Mg Tab 20 Mg PO DAILY Review of Systems Except as stated in HPI: all other systems reviewed are Neg Physical Exam Narrative GENERAL: Well-developed well-nourished female no acute distress sitting upright in hospital bed. SKIN: Warm and dry. HEAD: Atraumatic. Normocephalic. EYES: Pupils equal and round. No scleral icterus. No injection or drainage. ENT: No nasal bleeding or discharge. Mucous membranes pink and moist. NECK: Trachea midline. No JVD. CARDIOVASCULAR: Regular rate and rhythm. No murmur appreciated. RESPIRATORY: No accessory muscle use. Clear to auscultation. Breath sounds equal bilaterally. GASTROINTESTINAL: Abdomen soft, non-tender, nondistended. Hepatic and splenic margins not palpable. MUSCULOSKELETAL: No obvious deformities. No clubbing. No cyanosis. No edema. NEUROLOGICAL: Awake and alert. No obvious cranial nerve deficits. Motor grossly within normal limits. Normal speech. PSYCHIATRIC: Appropriate mood and affect; insight and judgment normal. Data Data Last Documented VS Vital Signs Date Time Temp Pulse Resp B/P (MAP) Pulse Ox O2 Delivery O2 Flow Rate FiO2 03/22/18 18:35 90 14 135/75 (95) 99 03/22/18 16:11 Room Air 03/22/18 15:29 98.8 Orders Orders Vascular Access Team Consult/P PRN (03/22/18 15:46) Vascular Poc Ultrasound (03/22/18 ) Electrocardiogram (03/22/18 15:48) Basic Metabolic Panel (Bmp) (03/22/18 15:48) Ckmb (Isoenzyme) Profile (03/22/18 15:48) Complete Blood Count With Diff (03/22/18 15:48) D-Dimer (03/22/18 15:48) Magnesium (Mg) (03/22/18 15:48) Prothrombin Time / Inr (Pt) (03/22/18 15:48) Act Partial Throm Time (Ptt) (03/22/18 15:48) Troponin I (03/22/18 15:48) Chest, Single Ap (03/22/18 15:48) Ecg Monitoring (03/22/18 15:48) Bilateral Bp Monitoring (03/22/18 15:48) Iv Access Insert/Monitor (03/22/18 15:48) Oximetry (03/22/18 15:48) Oxygen Administration (03/22/18 15:48) Sodium Chloride 0.9% Flush (Ns Flush) (03/22/18 16:00) Ed Urine Pregnancytest Poc (03/22/18 15:48) Ct Pulmonary Angiogram (03/22/18 17:18) Iohexol 350 Inj (Omnipaque 350 Inj) (03/22/18 19:31) Ketorolac Inj (Toradol Inj) (03/22/18 20:30) Ed Discharge Order (03/22/18 20:21) Labs Laboratory Tests Test 03/22/18 16:00 White Blood Count 9.2 TH/MM3 Red Blood Count 4.30 MIL/MM3 Hemoglobin 10.5 GM/DL Hematocrit 33.1 % Mean Corpuscular Volume 77.0 FL Mean Corpuscular Hemoglobin 24.5 PG Mean Corpuscular Hemoglobin Concent 31.8 % Red Cell Distribution Width 17.1 % Platelet Count 312 TH/MM3 Mean Platelet Volume 9.7 FL Neutrophils (%) (Auto) 67.6 % Lymphocytes (%) (Auto) 23.6 % Monocytes (%) (Auto) 7.4 % Eosinophils (%) (Auto) 0.8 % Basophils (%) (Auto) 0.6 % Neutrophils # (Auto) 6.2 TH/MM3 Lymphocytes # (Auto) 2.2 TH/MM3 Monocytes # (Auto) 0.7 TH/MM3 Eosinophils # (Auto) 0.1 TH/MM3 Basophils # (Auto) 0.1 TH/MM3 CBC Comment DIFF FINAL Differential Comment Prothrombin Time 9.8 SEC Prothromb Time International Ratio 1.0 RATIO Activated Partial Thromboplast Time 27.3 SEC D-Dimer Quantitative (PE/DVT) 0.92 MG/L FEU Blood Urea Nitrogen 10 MG/DL Creatinine 0.79 MG/DL Random Glucose 76 MG/DL Calcium Level 9.0 MG/DL Magnesium Level 1.9 MG/DL Sodium Level 141 MEQ/L Potassium Level 4.1 MEQ/L Chloride Level 106 MEQ/L Carbon Dioxide Level 26.2 MEQ/L Anion Gap 9 MEQ/L Estimat Glomerular Filtration Rate 89 ML/MIN Total Creatine Kinase 90 U/L Troponin I LESS THAN 0.02 NG/ML MDM Medical Decision Making Medical Screen Exam Complete: Yes Emergency Medical Condition: Yes Medical Record Reviewed: Yes Differential Diagnosis Anxiety, costochondritis, spontaneous pneumothorax, pulmonary embolism, pericarditis, myocarditis Narrative Course The patient was placed on ECG monitoring pulse oximetry. A 12 EKG was obtained revealing sinus rhythm with a rate of 95, nonspecific ST changes.. Lab work, chest x-ray been ordered. The patient's well score is 1.5 given her history of previous PE, thus she is low risk category and a d-dimer has been ordered. D-dimer is elevated therefore CT pulmonary angiogram ordered. CT pulmonary angiogram reveals CONCLUSION: 1. Limited examination. 2. No evidence for central pulmonary artery embolism. More distal segmental and subsegmental pulmonary branches are incompletely evaluated. 3. Otherwise, unremarkable CT examination of the chest. The patient is stable for discharge and outpatient follow-up. She is requesting a refill of her Prilosec. She will be given a dose of Toradol prior to discharge. Diagnosis Primary Impression: Chest pain Additional Instructions: Follow-up with your primary care physician as needed. Return for any acutely new or worsening symptoms. Med/Other Pt SpecificInfo: Prescription(s) given Scripts Omeprazole Magnesium (Prilosec) 20 Mg Tab 1 TAB PO DAILY, #30 Prov: Montez Pappas MD 03/22/18 Disposition: 01 DISCHARGE HOME Condition: Stable Sd Paz March 22, 2018 15:54
[2018-03-22] MEDS ORDERED: SODIUM CHLORIDE 0.9% FLUSH 10 ML FLUSH IVF PRN (16:00)
[2018-03-22 16:11] VITALS: BP 157/80; PULSE 91; RESP 19; O2SAT 96
[2018-03-22] MEDS ORDERED: OMEP20TA93 PO (16:11)
[2018-03-22] MEDS ORDERED: MULTTAB67 PO (16:11)
[2018-03-22 16:46] LABS: AUTOMATED NEUTROPHIL # 6.2 TH/MM3 (1.8-7.7); BASOPHIL # 0.1 TH/MM3 (0-0.2); BASOPHIL % 0.6 % (0.0-2.0); EOSINOPHIL # 0.1 TH/MM3 (0-0.4); EOSINOPHIL % 0.8 % (0.0-4.0); HEMATOCRIT 33.1 % (35.0-46.0); HEMOGLOBIN 10.5 GM/DL (11.6-15.3); LYMPH % 23.6 % (9.0-44.0); LYMPHOCYTE # 2.2 TH/MM3 (1.0-4.8); MEAN CORPUSCULAR HEMOGLOBIN 24.5 PG (27.0-34.0); MEAN CORPUSCULAR HGB CONC 31.8 % (32.0-36.0); MEAN PLATELET VOLUME 9.7 FL (7.0-11.0); MONO % 7.4 % (0.0-8.0); MONOCYTE # 0.7 TH/MM3 (0-0.9); NEUT % 67.6 % (16.0-70.0); PLATELET COUNT 312 TH/MM3 (150-450); RED CELL DISTRIBUTION WIDTH 17.1 % (11.6-17.2); WHITE BLOOD COUNT 9.2 TH/MM3 (4.0-11.0)
--- NOTE | 2018-03-22 16:49 | RADRPT ---
EXAM DATE: 03/22/2018 4:43 PM EDT AGE/SEX: 27 years / Female INDICATIONS: Midchest pain and shortness of breath. CLINICAL DATA: This is the patient's initial encounter. Patient reports that signs and symptoms have been present for 4 - 6 days and indicates a pain score of 6/10. MEDICAL/SURGICAL HISTORY: Asthma. None. COMPARISON: [facility] [place], CHEST SINGLE AP, 05/25/2017. . FINDINGS: A single AP view of the chest demonstrates the lungs to be symmetrically aerated without evidence of mass, infiltrate or effusion. The cardiomediastinal contours are unremarkable. Osseous structures a re intact. CONCLUSION: No acute cardiopulmonary process. Electronically signed by: Hardik Smith MD 03/22/2018 4:47 PM EDT
[2018-03-22 16:56] LABS: BICARBONATE 26.2 MEQ/L (21.0-32.0); BLOOD UREA NITROGEN 10 MG/DL (7-18); CHLORIDE 106 MEQ/L (98-107); CREATININE 0.79 MG/DL (0.50-1.00); GLOMERULAR FILTRATION RATE 89 ML/MIN (>89); GLUCOSE,RANDOM 76 MG/DL (74-106); MAGNESIUM 1.9 MG/DL (1.5-2.5); SODIUM (NA) 141 MEQ/L (136-145)
[2018-03-22 16:59] LABS: TROPONIN I LESS THAN 0.02 NG/ML (0.02-0.05)
[2018-03-22 17:11] LABS: PROTHROMBIN TIME - PATIENT 9.8 SEC (9.8-11.6)
[2018-03-22 17:15] LABS: D-DIMER 0.92 MG/L FEU (0.00-0.50)
[2018-03-22 18:35] VITALS: BP 135/75; PULSE 90; RESP 14; O2SAT 99
[2018-03-22] MEDS ORDERED: IOHEXOL 350 MG/ML 10 ML VIAL (for RAD DIAG) IVCONTRAST ONE (19:31)
--- NOTE | 2018-03-22 20:01 | RADRPT ---
EXAM DATE: 03/22/2018 7:55 PM EDT AGE/SEX: 27 years / Female INDICATIONS: Chest pain CLINICAL DATA: This is the patient's initial encounter. Patient reports that signs and symptoms have been present for 3 days and indicates a pain score of 6/10. MEDICAL/SURGICAL HISTORY: Asthma. Gastroesophageal reflux disease. Anemia. Pulmonary embolism N one. RADIATION DOSE: 23.02 CTDI (mGy) COMPARISON: [facility] [place], CT PULMONARY ANGIOGRAM, 08/29/2017. . TECHNIQUE: Volumetric scanning was performed using a multi-row detector CT scanner during bolus infu kwesi of 75 ml Omnipaque 350 (iohexol) nonionic water-soluble contrast as a single exam dose. The aquiles a was post processed with a variety of visualization algorithms including full volume maximum intensi ty projection and sliding thin slab reformation. Using automated exposure control and adjustment of the mA and/or kV according to patient size, radiation dose was kept as low as reasonably achievable t o obtain optimal diagnostic quality images. FINDINGS: Pulmonary Arteries: No filling defects are seen in the pulmonary arteries through the very proximal segmental vessels. The main pulmonary artery is normal in diameter. Lung: No focal parenchymal abnormalities. Pleura: No effusion, significant pleural thickening or pneumothorax. Mediastinum: Heart is unremarkable without pericardial effusion.No evidence of mediastinal or hilar adenopathy. Osseous Structures: No abnormal focal lytic or blastic bony lesions. Other: Visualized upper abdomen is unremarkable. CONCLUSION: 1. Limited examination. 2. No evidence for central pulmonary artery embolism. More distal segmental and subsegmental pulmona ry branches are incompletely evaluated. 3. Otherwise, unremarkable CT examination of the chest. Electronically signed by: Bertram Tate MD 03/22/2018 7:59 PM EDT
[2018-03-22] MEDS ORDERED: PRIL20TA2 PO (20:20)
[2018-03-22] MEDS ORDERED: KETOROLAC TROMETHAMINE 30 MG/ML (IVP) VIAL IV PUSH ONE (20:30)
--- NOTE | 2018-03-24 08:26 | EKG ---
Date Performed: 03/22/2018 Time Performed: 15:38:08 PTAGE: 27 years EKG: Sinus rhythm MODERATE VOLTAGE CRITERIA FOR LVH, CONSIDER NORMAL VARIANT NONSPECIFIC ST & T-WAVE ABNORMALITY TSEVE JUSTIN ECG INTERPRETATION BASED ON A DEFAULT AGE OF 40 YEARS PREVIOUS TRACING : 06/11/2017 17.03 DOCTOR: Nacho Goetz Interpretating Date/Time 03/24/2018 08:17:50
== END 2018-03-22 20:42 | disposition home or self-care (01) ==
LOC: NEPC 15:17
DX: R07.9 Chest pain, unspecified (principal); R06.00 Dyspnea, unspecified; R94.31 Abnormal electrocardiogram [ECG] [EKG]; D64.9 Anemia, unspecified; J45.909 Unspecified asthma, uncomplicated; K21.9 Gastro-esophageal reflux disease without esophagitis; W10.9XXA Fall (on) (from) unspecified stairs and steps, initial encounter; Z86.711 Personal history of pulmonary embolism; Z79.01 Long term (current) use of anticoagulants
CPT/HCPCS: 71045; 71275; 80048; 82550; 83735; 84484; 84703; 85025; 85379; 85610; 85730; 93005; 96374; 99285; J1885; Q9967